=== PATIENT | female | born 1945 | race Caucasian/White ===

== ENCOUNTER 2024-12-25 22:12 | Emergency (ER) | payer MEDICARE, SELFPAY ==
[2024-12-25 22:16] VITALS: BP 162/72
[2024-12-25 22:22] VITALS: BMI 19.1
--- NOTE | 2024-12-25 22:38 | ED.GENMED ---
History of Present Illness
General
Chief Complaint: Fall
Source: patient, records and ambulance crew
Exam Limitations: dementia
Time Seen by Provider: 12/25/24 22:23
Nursing documentation reviewed up to this point in time: agreed with
History of Present Illness
History of Present Illness:
79-year-old female presents emergency room complaining of a fall. She denies any pain. She has expressive aphasia and has difficulty giving history of what happened. She is able to answer some questions.
Past History
Past History
ED Past Medical History: Cancer (Skin CA), GERD and Other (UTI, Expressive Aphasia)
ED Past Surgical History: , Gynecological (Right Oophorectomy) and Orthopedic (Right foot surgery)
Social History
Tobacco: Non-smoker
Alcohol: None
Drug: None
Personal:
Living: alone
Review of Systems
Review of Systems
Allergies reviewed?: Yes
All Other Systems: Not applicable
Constitutional: Reports no symptoms
EENT: Reports no symptoms
Respiratory: Reports no symptoms
Cardiac: Reports no symptoms
ABD/GI: Reports no symptoms
: Reports no symptoms
Musculoskeletal: Reports no symptoms
Skin: Reports no symptoms
Neurological: Reports no symptoms
Endocrine: Reports no symptoms
Hematologic/Lymphatic: Reports no symptoms
Psychiatric: Reports no symptoms
Phy Exam
Physical Exam
Physical Exam:
Physical Exam
General: no apparent distress, not acutely ill
Neck: supple. no meningeal signs. normal posterior pharynx, wearing c-collar
Heart: s1/s2 regular rate and rhythm, no murmur. equal radial
pulses.
HEENT: Pupils equal round reactive to light, EOMI
Lungs: no acute respiratory distress. clear bilaterally
Abdomen: normal bowel sounds. not tender. no CVAT
Neuro: alert and oriented to person. no focal neurological deficits cranial nerves II through XII intact
Skin: no rash
Psychiatric: well kept. interactive and cooperative
Extremities: no edema. no calf tenderness. negative homans. good distal pulses
Course
Orders/Labs/Results
Orders:
Orders
12/25/24 22:38
CT Cervical Spine W/o Iv Contr Urgent
Comment:
Reason For Exam: fall
CT Head W/o Iv Contrast Urgent
Comment:
Reason For Exam: fall
0.9% Sodium Chloride 500 ml [Nss] 500 ml IV BOLUS
12/25/24 22:47
CMP [Comprehensive Metabolic Panel] Urgent
Complete Blood Count/With Diff Urgent
Abnormal Lab Results
12/25/24
22:47
RBC 3.98 L 10^6/uL
(4.20-5.40)
Hgb 11.9 L g/dL
(12.0-16.0)
Hct 36.6 L %
(37.0-47.0)
MCHC 32.5 L g/dL
(33.0-37.0)
Abs Immat Gran (auto) 0.1 H 10^3/uL
(0-0.05)
Absolute Lymphs (auto) 0.7 L 10^3/uL
(1.2-3.4)
Absolute Monos (auto) 0.7 H 10^3/uL
(0.1-0.6)
Immature Gran % 0.9 H %
(0-0.5)
Lymphocytes % 13.9 L %
(20.5-51.1)
Monocytes % 13.9 H %
(1.7-9.3)
Potassium 3.4 L mmol/L
(3.5-5.1)
Carbon Dioxide 33 H mmol/L
(22-30)
Creatinine 0.5 L mg/dL
(0.6-1.0)
12/25/24 22:47
12/25/24 22:47
Vital Signs
Initial and Last Documented VS:
Initial Vital Signs
Temp Pulse Resp BP Pulse Ox
98.4 F 67 18 162/72 94
12/25/24 22:16 12/25/24 22:16 12/25/24 22:16 12/25/24 22:16 12/25/24 22:16
Last Documented Vital Signs
Temp Pulse Resp BP Pulse Ox
98.4 F 57 18 129/65 95
12/25/24 22:16 12/26/24 01:15 12/25/24 23:43 12/26/24 01:00 12/26/24 01:15
MDM/Problems Addressed
Differential Diagnosis Includes:
Intracranial hemorrhage, cervical spine fracture
MDM/Problems Addressed:
79-year-old female with fall, no signs of trauma on exam and CT scans. CT head and cervical spine no fracture or intracranial hemorrhage. Stable for discharge. No respiratory distress, lungs clear.
Chronic conditions affecting care: Other (Dementia)
*Radiology
Radiology exam reviewed: radiology read reviewed (CT head and cervical spine no acute finding)
*Pulse Oximetry
SaO2: 94
Oxygen Mode of Delivery: Room air
Patient hypoxic: no
*Critical Care Note
Total Time (30-74mins, 75-104mins- exclusive of procedures): Not Applicable
Patient Management
Social determinants of health affecting care: Living situation and Strong social support
Escalation/DeEscalation of care consider admission/obs:
Admit not indicated
ED Attending Note
-
Portions of this chart may have been created with voice recognition software.� Occasional wrong word or��sound alike� substitutions may have occurred due to the inherent limitations of voice recognition software.
Discharge Plan
Departure
Patient Disposition: Correction/SNF
Date of Disposition: 12/26/24
Time of Disposition: 01:33
Patient with high blood pressure during this ER visit?: Yes
Condition: Good
Discharge Problem:
Fall
Instructions: Preventing falls in adults, BLOOD PRESSURE
Prescriptions:
No Action
cyanocobalamin (vitamin B-12) [Vitamin B-12] 1,000 mcg Tablet
1,000 mcg PO DAILY
aspirin 81 MG tablet,chewable
81 mg PO DAILY
cholecalciferol (vitamin D3) [Vitamin D3] 25 mcg (1,000 unit) Tablet
25 mcg PO DAILY
calcium citrate-vitamin D3 [Citracal + D Maximum] 315 mg-6.25 mcg (250 unit) Tablet
1 tab PO BID
Prolia 60 mg/mL Syringe
60 mg SC [id number]
multivitamin Tablet
1 tab PO DAILY
acetaminophen 325 mg Tablet
325 - 650 mg PO Q6H PRN (Reason: mild pain)
ascorbic acid (vitamin C) [Vitamin C] 500 mg Tablet
500 mg PO DAILY
ibuprofen [Advil] 200 mg Tablet
200 mg PO Q6H PRN (Reason: mild pain)
Hair,Skin and Nails Tablet
1 tab PO DAILY
omeprazole 20 mg Tablet,Delayed Release (Dr/Ec)
20 mg PO .[id number]
omega-3 fatty acids-fish oil 684-1,200 mg Capsule,Delayed Release(Dr/Ec)
1 cap PO DAILY
donepezil 5 mg Tablet
5 mg PO .[id number]
sertraline 50 mg Tablet
50 mg PO DAILY
magnesium oxide 400 mg magnesium Tablet
400 mg PO DAILY
Referrals:
Richard Nj MD [Family Provider] - Call in 1-3 days for appt
Interventions
Interventions:
*Risk Screen - Suicide Last Done: 12/25/24 22:24
*General Assessment Last Done: 12/25/24 22:24
*Neglect/Abuse Screening Last Done: 12/25/24 22:24
*ED- Fall Risk Assessment Last Done: 12/25/24 22:24
*ED COVID-19 Vaccine History Last Done: 12/25/24 22:24
ED-Musculoskeletal Assessment Last Done: 12/25/24 22:30
ED- Neurological Assessment Last Done: 12/25/24 22:30
ED-Skin Assessment Last Done: 12/25/24 22:30
Discharge Date and Time
Print Language: VENEZUELAN
[2024-12-25] MEDS: NSS 500 IV (22:50)
[2024-12-25 22:54] LABS: Hematocrit 36.6 % (37.0-47.0); Hemoglobin 11.9 g/dL (12.0-16.0); Mean Corp Hgb Conc. 32.5 g/dL (33.0-37.0); Mean Corpuscular Volume 92.0 fL (81.0-99.0); Nucleated Red Blood Cells % 0 %; Platelet Count 241 10^3/uL (130-400); Red Cell Dist. Width 13.2 % (11.5-14.5)
[2024-12-25 23:00] VITALS: BP 144/81
[2024-12-25 23:11] LABS: ALT (SGPT) 16 U/L (0-35); AST (SGOT) 33 U/L (14-36); Albumin 3.9 g/dl (3.5-5.0); Alkaline Phosphatase 59 U/L (38-126); Blood Urea Nitrogen 14 mg/dl (7-17); Calcium 9.1 mg/dl (8.4-10.2); Carbon Dioxide 33 mmol/L (22-30); Chloride 102 mmol/L (98-107); Estimated Creatinine Clearance 62 ml/min; Glucose 98 mg/dl (70-99); Potassium 3.4 mmol/L (3.5-5.1); Sodium 137 mmol/L (135-145); Total Protein 7.7 g/dl (6.3-8.2); eGFR > 60.00
[2024-12-25 23:43] VITALS: BP 167/76
[2024-12-26] VITALS: BP 152/68
[2024-12-26 01:00] VITALS: BP 129/65
[2024-12-26 02:00] VITALS: BP 113/64
[2024-12-26 03:51] VITALS: BP 117/62
[2024-12-26 04:46] VITALS: BP 136/72
== END 2024-12-26 04:56 ==
LOC: EMR 22:12
PROVIDERS: EMERGENCY PHYSICIAN Emergency Medicine; FAMILY PHYSICIAN Internal Medicine
DX: Z04.89 Encounter for examination and observation for other specified reasons (principal); W19.XXXA Unspecified fall, initial encounter; K21.9 Gastro-esophageal reflux disease without esophagitis; F03.90 Unspecified dementia, unspecified severity, without behavioral disturbance, psychotic disturbance, mood disturbance, and anxiety; Z85.828 Personal history of other malignant neoplasm of skin; Z87.440 Personal history of urinary (tract) infections; Z90.721 Acquired absence of ovaries, unilateral
CPT/HCPCS: 99284; 96360; 70450; 72125; 80053; 85025

== ENCOUNTER 2025-01-23 04:02 | Emergency (ER) | payer MEDICARE, SELFPAY ==
[2025-01-23 04:06] VITALS: BP 135/60
--- NOTE | 2025-01-23 04:20 | EDRN ---
Paperwork from [facility] list pt's allergies as None however there are allergies in pt's ED record.
--- NOTE | 2025-01-23 05:29 | ED.GENMED ---
History of Present Illness
General
Chief Complaint: Fall
Time Seen by Provider: 01/23/25 04:32
History of Present Illness
History of Present Illness:
79-year-old female with history of dementia presenting from nursing facility for reported fall. Patient allegedly slid out of her bed onto the ground and facility is reporting that patient was having left hip pain. No report of any head injury.
Patient is not on any blood thinners. Patient is very limited historian given her profound dementia. No additional symptoms reported at this time
Past History
Past History
ED Past Medical History: Cancer (Skin CA), GERD and Other (UTI, Expressive Aphasia)
ED Past Surgical History: , Gynecological (Right Oophorectomy) and Orthopedic (Right foot surgery)
Social History
Tobacco: Non-smoker
Alcohol: None
Drug: None
Personal:
Living: alone
Phy Exam
Physical Exam
Physical Exam:
General: Well-appearing, no clinical signs of dehydration, nontoxic and in no acute distress
HEENT: protecting airway
Neck: appears supple
CV: Normal heart rate, regular rhythm
Resp: No accessory muscle use, no increased work of breathing, lungs clear to auscultation bilaterally
Abd: Soft and non-distended, no tenderness to palpation
Extremities: No deformities, no swelling. Range of motion to lower extremities intact. No tenderness to the hips or pelvis
Neuro: alert, disoriented
: deferred
Rectal: deferred
Psych: Normal affect
Skin: Intact
Course
Orders/Labs/Results
Orders:
Orders
01/23/25 04:46
Hip, Left 2-3 Views [CR Hip - LT w/wo Pel 2-3 Vw*] Urgent
Comment:
Reason For Exam: pain after fall
Include a pelvis x-ray?: Yes
Vital Signs
Initial and Last Documented VS:
Initial Vital Signs
Temp
97.6 F
01/23/25 04:03
Last Documented Vital Signs
Temp Pulse Resp BP
97.6 F 62 14 135/60
01/23/25 04:03 01/23/25 04:05 01/23/25 04:05 01/23/25 04:06
MDM/Problems Addressed
MDM/Problems Addressed:
79-year-old female with history of dementia presenting from nursing facility after fall from sitting position. Vital signs are normal.
On exam patient resting comfortably, no acute distress. Patient without any physical signs of trauma. Severely limited historian. Per nursing facility, no report of head injury, patient is not on any blood thinners. Again no signs of any head
trauma. Without indication for advanced head imaging. Per nursing facility, patient was reporting left hip pain. No signs of deformity on examination, no neurovascular compromise. Patient with normal range of motion. Low suspicion fracture.
Will screen with x-ray. Otherwise unremarkable examination.
05:30 - X-ray without fracture or dislocation. Feel stable for discharge back to nursing facility with outpatient follow-up. Return precautions discussed
*Pulse Oximetry
Patient hypoxic: no
*Critical Care Note
Total Time (30-74mins, 75-104mins- exclusive of procedures): Not Applicable
ED Attending Note
-
Portions of this chart may have been created with voice recognition software.� Occasional wrong word or��sound alike� substitutions may have occurred due to the inherent limitations of voice recognition software.
Discharge Plan
Departure
Patient Disposition: Home (Routine Discharge)
Date of Disposition: 01/23/25
Time of Disposition: 05:28
Patient with high blood pressure during this ER visit?: No
Condition: Good
Discharge Problem:
Fall, Hip pain
Instructions: Preventing falls in adults
Prescriptions:
No Action
acetaminophen 325 mg Tablet
650 mg PO Q6H PRN (Reason: pain/fever)
omeprazole 20 mg Tablet,Delayed Release (Dr/Ec)
20 mg PO BID
donepezil 5 mg Tablet
5 mg PO HS
sertraline 50 mg Tablet
100 mg PO DAILY
magnesium oxide 400 mg magnesium Tablet
400 mg PO DAILY
lorazepam 0.5 mg Tablet
0.5 mg PO Q6HPRN PRN (Reason: anxiety)
Referrals:
UNKNOWN - PT DOES,NOT KNOW [Family Provider]
Activity Restrictions/Additional Instructions:
You were seen in the emergency department for a fall
You were found to have reassuring vital signs and x-ray of your hip and pelvis.
Please follow-up closely with your primary care physician.
Return to the emergency department for any worsening of your symptoms, or any development of chest pain, difficulty breathing, abdominal pain with persistent vomiting and inability to tolerate food or liquid by mouth (concern for dehydration),
weakness, headache or confusion, fever greater than 100.4, or any additional symptoms that are concerning to you.
Thank you for choosing [facility].
Interventions
Interventions:
*Risk Screen - Suicide Last Done: 01/23/25 04:03
*General Assessment Last Done: 01/23/25 04:03
*Neglect/Abuse Screening Last Done: 01/23/25 04:03
*ED- Fall Risk Assessment Last Done: 01/23/25 04:07
ED-Musculoskeletal Assessment Last Done: 01/23/25 04:09
ED- Neurological Assessment Last Done: 01/23/25 04:09
ED-Skin Assessment Last Done: 01/23/25 04:09
Discharge Date and Time
Print Language: GAMBIAN
[2025-01-23 05:30] VITALS: BP 128/70
--- NOTE | 2025-01-23 05:30 | EDRN ---
Pt attempts to get out of the stretcher via the bottom of it. Knee gatch raised and stretcher tipped backwards slightly. Pt informed of plan of care, pt wants to go home. Pt's personal pillow placed with her, music playing on TV and lights
dimmed. This RN explained to pt that she is discharged and transport will be picking her up around 0600 to go home. Pt pointed at this RN and repeated 'liar liar liar.'
--- NOTE | 2025-01-23 05:38 | EDRN ---
Pt continues trying to get out the bottom of the stretcher. EDT 1:1 with pt for safety, assisting pt with putting on her clothes.
--- NOTE | 2025-01-23 05:56 | EDRN ---
[facility] (staff said this was a RN). Informed pt's paperwork from [facility] lists no allergies however she has allergies listed in ED chart. Suggested allergy status be confirmed when possible and he asked that allergies
listed be written down. Allergies in ED chart listed on pt's discharge paperwork.
== END 2025-01-23 06:25 | disposition home or self-care (01) ==
LOC: EMR 04:02
PROVIDERS: EMERGENCY PHYSICIAN Student in an Organized Health Care Education/Training Program
DX: M25.552 Pain in left hip (principal); W19.XXXA Unspecified fall, initial encounter; F03.90 Unspecified dementia, unspecified severity, without behavioral disturbance, psychotic disturbance, mood disturbance, and anxiety; Z85.828 Personal history of other malignant neoplasm of skin; Z87.440 Personal history of urinary (tract) infections; Z90.721 Acquired absence of ovaries, unilateral; K21.9 Gastro-esophageal reflux disease without esophagitis
CPT/HCPCS: 99283; 73502

== ENCOUNTER 2025-02-02 04:11 | Emergency (ER) | payer MEDICARE, SELFPAY ==
[2025-02-02] VITALS (12 sets, daily range): BP systolic 98–145; BP diastolic 52–99
[2025-02-02 05:03] LABS: Hematocrit 32.6 % (37.0-47.0); Hemoglobin 10.4 g/dL (12.0-16.0); Mean Corp Hgb Conc. 31.9 g/dL (33.0-37.0); Mean Corpuscular Volume 89.6 fL (81.0-99.0); Nucleated Red Blood Cells % 0 %; Platelet Count 243 10^3/uL (130-400); Red Cell Dist. Width 13.4 % (11.5-14.5)
[2025-02-02 05:38] LABS: Blood Urea Nitrogen 8 mg/dl (7-17); Calcium 8.7 mg/dl (8.4-10.2); Carbon Dioxide 32 mmol/L (22-30); Chloride 100 mmol/L (98-107); Glucose 114 mg/dl (70-99); Sodium 137 mmol/L (135-145); eGFR > 60.00
--- NOTE | 2025-02-02 06:34 | ED.GENMED ---
History of Present Illness
<Liberty Kwon DO, Resident - Last Filed: 02/02/25 12:35>
General
Chief Complaint: Musculo-Skeletal Complaint
Time Seen by Provider: 02/02/25 06:10
History of Present Illness
History of Present Illness:
Patient is a 79-year-old female with past medical history of Alzheimer's coming from [facility] dementia. Hip pain. Unwitnessed fall. Patient is unable to bear weight on the left hip. Patient also has new abrasion and bruising on
the right side of her chin and her posterior right shoulder. Patient unable to provide additional details due to profound dementia. Of note patient had a recent ED visit. Of note patient had a recent ED visit on 01/23/2025 for left hip pain after a
fall.
Past History
<Liberty Kwon DO, Resident - Last Filed: 02/02/25 12:35>
Past History
ED Past Medical History: Cancer (Skin CA), GERD and Other (UTI, Expressive Aphasia)
ED Past Surgical History: , Gynecological (Right Oophorectomy) and Orthopedic (Right foot surgery)
Social History
Tobacco: Non-smoker
Alcohol: None
Drug: None
Personal:
Living: alone
Review of Systems
<Liberty Kwon DO, Resident - Last Filed: 02/02/25 12:35>
Review of Systems
Allergies reviewed?: Yes
Unable to obtain full review of systems at this time due to: dementia
Phy Exam
<Liberty Kwon DO, Resident - Last Filed: 02/02/25 12:35>
General Physical Exam
General Presentation: well appearing and no apparent distress
General age: appears stated age
ENT Exam
Additional ENT: Protecting airway
Cardiovascular Exam
Cardiovascular Exam: regular rate/rhythm
Heart Sounds: normal
Pulmonary Exam
Pulmonary Exam: lungs clear and no respiratory distress
Gastrointestinal Exam
Gastrointestinal Exam: normal bowel sounds, non tender and soft
Neurological Exam
Neurological Exam: other (Disoriented, difficult to arouse)
Musculoskeletal Exam
Musculoskeletal Exam: other (Left hip pain swelling, older yellowing bruise on left hip buttocks. )
Skin Exam
Skin Exam: other ( New abrasions on right chin, left cheek and right posterior shoulder.)
Course
<Liberty Kwon DO, Resident - Last Filed: 02/02/25 12:35>
Orders/Labs/Results
Orders:
Orders
02/02/25 04:42
CR Femur - Left Min 2 Vw Urgent
Comment:
Reason For Exam: pain, bruising, and swelling after fall
CR Hip - LT w/wo Pel 2-3 Vw* Urgent
Comment:
Reason For Exam: pain/ bruising after fall
Include a pelvis x-ray?: Yes
02/02/25 04:44
Basic Metabolic Panel Urgent
Comment: NO K
Complete Blood Count/With Diff Urgent
02/02/25 06:30
CT Cervical Spine W/o Iv Contr Urgent
Comment:
Reason For Exam: fall
CT Head W/o Iv Contrast Urgent
Comment:
Reason For Exam: Fall
02/02/25 06:47
CT Pelvis W/o Iv Contrast Urgent
Comment:
Reason For Exam: L-hip pain
02/02/25 09:36
Urinalysis Reflex To Culture Urgent
Date Specimen was Collected: 02/02/25
Time Specimen was Collected: 09:15
Urine Microscopic Reflex Cult Urgent
02/02/25 09:37
Ketorolac [Toradol] 15 mg IV NOW STA
02/02/25 09:59
CR Chest - 2 Views Urgent
Comment:
Reason For Exam: fever
Abnormal Lab Results
02/02/25 02/02/25
04:44 09:36
RBC 3.64 L 10^6/uL
(4.20-5.40)
Hgb 10.4 L g/dL
(12.0-16.0)
Hct 32.6 L %
(37.0-47.0)
MCHC 31.9 L g/dL
(33.0-37.0)
Abs Immat Gran (auto) 0.1 H 10^3/uL
(0-0.05)
Absolute Neuts (auto) 7.4 H 10^3/uL
(1.4-6.5)
Absolute Lymphs (auto) 0.6 L 10^3/uL
(1.2-3.4)
Absolute Monos (auto) 1.1 H 10^3/uL
(0.1-0.6)
Neutrophils % 81.2 H %
(42.2-75.2)
Lymphocytes % 6.1 L %
(20.5-51.1)
Monocytes % 12.0 H %
(1.7-9.3)
Carbon Dioxide 32 H mmol/L
(22-30)
Creatinine 0.4 L mg/dL
(0.6-1.0)
Glucose 114 H mg/dl
(70-99)
Urine Bacteria (Reflex) Few A
(Negative)
Urine Albumin (Reflex) 1+ A
(Neg - Trace)
02/02/25 04:44
02/02/25 04:44
Vital Signs
Initial and Last Documented VS:
Initial Vital Signs
Temp Pulse Resp BP Pulse Ox
100.4 F H 78 18 145/67 97
02/02/25 04:15 02/02/25 04:15 02/02/25 04:15 02/02/25 04:15 02/02/25 04:15
Last Documented Vital Signs
Temp Pulse Resp BP Pulse Ox
100.4 F H 63 21 117/59 95
02/02/25 09:00 02/02/25 10:45 02/02/25 10:09 02/02/25 10:43 02/02/25 10:45
<Cassidy Dawson, DO - Last Filed: 02/02/25 10:42>
Orders/Labs/Results
Orders:
Orders
02/02/25 04:42
CR Femur - Left Min 2 Vw Urgent
Comment:
Reason For Exam: pain, bruising, and swelling after fall
CR Hip - LT w/wo Pel 2-3 Vw* Urgent
Comment:
Reason For Exam: pain/ bruising after fall
Include a pelvis x-ray?: Yes
02/02/25 04:44
Basic Metabolic Panel Urgent
Comment: NO K
Complete Blood Count/With Diff Urgent
02/02/25 06:30
CT Cervical Spine W/o Iv Contr Urgent
Comment:
Reason For Exam: fall
CT Head W/o Iv Contrast Urgent
Comment:
Reason For Exam: Fall
02/02/25 06:47
CT Pelvis W/o Iv Contrast Urgent
Comment:
Reason For Exam: L-hip pain
02/02/25 09:36
Urinalysis Reflex To Culture Urgent
Date Specimen was Collected: 02/02/25
Time Specimen was Collected: 09:15
Urine Microscopic Reflex Cult Urgent
02/02/25 09:37
Ketorolac [Toradol] 15 mg IV NOW STA
02/02/25 09:59
CR Chest - 2 Views Urgent
Comment:
Reason For Exam: fever
Abnormal Lab Results
02/02/25 02/02/25
04:44 09:36
RBC 3.64 L 10^6/uL
(4.20-5.40)
Hgb 10.4 L g/dL
(12.0-16.0)
Hct 32.6 L %
(37.0-47.0)
MCHC 31.9 L g/dL
(33.0-37.0)
Abs Immat Gran (auto) 0.1 H 10^3/uL
(0-0.05)
Absolute Neuts (auto) 7.4 H 10^3/uL
(1.4-6.5)
Absolute Lymphs (auto) 0.6 L 10^3/uL
(1.2-3.4)
Absolute Monos (auto) 1.1 H 10^3/uL
(0.1-0.6)
Neutrophils % 81.2 H %
(42.2-75.2)
Lymphocytes % 6.1 L %
(20.5-51.1)
Monocytes % 12.0 H %
(1.7-9.3)
Carbon Dioxide 32 H mmol/L
(22-30)
Creatinine 0.4 L mg/dL
(0.6-1.0)
Glucose 114 H mg/dl
(70-99)
Urine Bacteria (Reflex) Few A
(Negative)
Urine Albumin (Reflex) 1+ A
(Neg - Trace)
02/02/25 04:44
02/02/25 04:44
Vital Signs
Initial and Last Documented VS:
Initial Vital Signs
Temp Pulse Resp BP Pulse Ox
100.4 F H 78 18 145/67 97
02/02/25 04:15 02/02/25 04:15 02/02/25 04:15 02/02/25 04:15 02/02/25 04:15
Last Documented Vital Signs
Temp Pulse Resp BP Pulse Ox
100.4 F H 63 21 117/59 95
02/02/25 09:00 02/02/25 10:45 02/02/25 10:09 02/02/25 10:43 02/02/25 10:45
<Liberty Kwon DO, Resident - Last Filed: 02/02/25 12:35>
MDM/Problems Addressed
MDM/Problems Addressed:
Due to the fall being unwitnessed and abrasions on her face, we will order CT head and a CT cervical spine. Ordering a urinalysis considering patient is slightly febrile at 100.4 �F.
CT Head: no acute intracranial abnormality noted. No acute intracranial hemorrhage or extra-axial collection. Mild right lateral scalp soft tissue swelling. No skull fracture.
CT Cervical Spine: Stable examination. C5-6 degenerative disc disease. No fracture. No traumatic malalignment.
CT Pelvis: Soft tissue hematoma within the subcutaneous fat lateral to the left greater trochanter. No left hip fracture or dislocation. Left obturator internus muscle and common hamstring tendon origin soft tissue injury/tear. Healing insufficiency
fractures involving the medial aspect of the right superior pubic ramus and sacrum, having developed since prior examination
9:25 AM rectal temp 100.4 F. Will get straight cath for urinalysis sample.
10:15 AM Urinalysis negative. Have tried to contact nursing facility numerous times and left voicemails for both the facility and the patient's son. chest x-ray ordered to rule out other sources of infection, negative.
Patient ready for discharge
<Liberty Kwon DO, Resident - Last Filed: 02/02/25 12:35>
*Radiology
Radiology exam reviewed: radiology read reviewed
*Pulse Oximetry
SaO2: 95
Oxygen Mode of Delivery: Room air
Patient hypoxic: no
*Critical Care Note
Total Time (30-74mins, 75-104mins- exclusive of procedures): Not Applicable
ED Attending Note
<Liberty Kwon DO, Resident - Last Filed: 02/02/25 12:35>
-
Portions of this chart may have been created with voice recognition software.� Occasional wrong word or��sound alike� substitutions may have occurred due to the inherent limitations of voice recognition software.
<Cassidy Dawson DO - Last Filed: 02/02/25 10:42>
ED Attending Note
Patient seen and examined by attending physician: Yes
I performed the substantive portion of visit, reviewed & personally made and approve the management plan that is documented in note by myself or SHAI.: Yes
I performed a history and physical exam of patient and discussed management with resident, I reviewed resident's note and agree with documented findings and plan of care.: Yes
ED Attending Note:
79-year-old female with history of profound dementia, presenting from nursing facility for unwitnessed fall. Patient presents from dementia care unit. Per medics, was unable to bear weight on her left leg. Patient was seen in the hospital on 01/23
for fall as well. Patient unable to comply with any additional questioning given her dementia. Vital signs are significant for low-grade temperature.
On exam patient is resting comfortably, no acute distress. She is disoriented, which is allegedly her baseline. Does arrive with some signs of trauma, abrasion to the chin and right side of the face. No tenderness elicited to the cervical spine.
Mild abrasion to the right shoulder, with no obvious deformity, range of motion intact and no tenderness on palpation. Tenderness to the left hip, externally rotated, not ranging. Distal sensation and pulses intact. No tenderness to the
chest/abdomen/pelvis. Plan for screening laboratory analysis, concern for hip fracture. Will also obtain CT head imaging. Regarding low-grade temperature, hemodynamically stable otherwise, no SIRS criteria or concern for sepsis. No coughing.
Will obtain urinalysis and screening laboratory analysis. Will obtain x-rays of hip.
06:40 - Hip x-ray without obvious fracture, difficult to interpret. Given that patient is not bearing weight, will obtain CT of the pelvis. Labs thus far unremarkable, no leukocytosis
09:20 -CT head and cervical spine are negative. CT of the pelvis without fracture to the left hip. There is mention of a soft tissue hematoma as well as muscular tear. Likely etiology of patient's pain. There are also healing fractures to the
right side. Unclear of patient's baseline ambulatory status. Will discuss with nursing facility and patient's family
10:40 -chest x-ray without any abnormality. Multiple times made to call nursing facility. Message also left with patient's son. At this time without concern for systemic infection, remains hemodynamically stable. Feel stable for discharge back
to nursing facility with PT for left sided muscular injury, and healing fractures to the right side.
Discharge Plan
Departure
Patient Disposition: Snf/SNF
Date of Disposition: 02/02/25
Time of Disposition: 10:39
Discharge Problem:
Fall
Instructions: Preventing falls - ED discharge instructions, BLOOD PRESSURE
Prescriptions:
No Action
acetaminophen 325 mg Tablet
650 mg PO Q6HPRN PRN (Reason: MILD pain/fever)
omeprazole 20 mg Tablet,Delayed Release (Dr/Ec)
20 mg PO BID
donepezil 5 mg Tablet
5 mg PO HS
sertraline 50 mg Tablet
100 mg PO DAILY
magnesium oxide 400 mg magnesium Tablet
400 mg PO DAILY
lorazepam 0.5 mg Tablet
0.5 mg PO Q6HPRN PRN (Reason: anxiety)
Referrals:
UNKNOWN - PT DOES,NOT KNOW [Family Provider]
Activity Restrictions/Additional Instructions:
You were seen in the emergency department for left hip pain
You were found to have a normal x-ray of your hip. We did a CT scan of your hip which showed a muscular tear, which is likely contributing to your pain. You also have healing old fractures to your right pelvis. Please follow-up with a physical
therapist. You were also noted to have a low-grade temperature of 100.4. However you had reassuring laboratory analysis and a urinalysis. Please continue to monitor your temperature and any developing infectious symptoms.
Please follow-up closely with your primary care physician.
Return to the emergency department for any worsening of your symptoms, or any development of chest pain, difficulty breathing, abdominal pain with persistent vomiting and inability to tolerate food or liquid by mouth (concern for dehydration),
weakness, headache or confusion, fever greater than 100.4, or any additional symptoms that are concerning to you.
Thank you for choosing [facility].
Interventions
Interventions:
*Risk Screen - Suicide Last Done: 02/02/25 04:15
*General Assessment Last Done: 02/02/25 04:15
*Neglect/Abuse Screening Last Done: 02/02/25 04:15
*ED- Fall Risk Assessment Last Done: 02/02/25 04:28
*ED COVID-19 Vaccine History Last Done: 02/02/25 04:28
ED-Musculoskeletal Assessment Last Done: 02/02/25 05:00
ED- Neurological Assessment Last Done: 02/02/25 05:00
ED-Skin Assessment Last Done: 02/02/25 05:00
Discharge Date and Time
Print Language: PERUVIAN
[2025-02-02 09:49] LABS: Urine Character Clear (Clear)
[2025-02-02 09:56] LABS: Urine Red Blood Cell 0-2 /HPF (0-2); Urine Squamous Cell 0-2 /LPF (Few); Urine White Cell 0-2 /HPF (0-5)
[2025-02-02] MEDS: TORADOL 15 MG IV (10:45)
== END 2025-02-02 12:27 ==
LOC: EMR 04:11
PROVIDERS: Emergency Medicine; EMERGENCY PHYSICIAN Student in an Organized Health Care Education/Training Program
DX: S00.83XA Contusion of other part of head, initial encounter (principal); S00.81XA Abrasion of other part of head, initial encounter; S40.211A Abrasion of right shoulder, initial encounter; M25.552 Pain in left hip; W19.XXXA Unspecified fall, initial encounter; G30.9 Alzheimer's disease, unspecified; F02.80 Dementia in other diseases classified elsewhere, unspecified severity, without behavioral disturbance, psychotic disturbance, mood disturbance, and anxiety
CPT/HCPCS: 96374; 99284; 70450; 71046; 72125; 72192; 73502; 73552; 80048; 81003; 81015; 85025

== ENCOUNTER 2025-02-23 17:55 | Emergency (ER) | payer MEDICARE, SELFPAY ==
[2025-02-23 18:00] VITALS: BP 164/78
[2025-02-23 19:25] VITALS: BP 161/79
[2025-02-23 19:29] VITALS: BMI 20.8
--- NOTE | 2025-02-23 19:44 | ED.GENMED ---
History of Present Illness
General
Chief Complaint: Fall
Source: patient and family
Exam Limitations: dementia
Time Seen by Provider: 02/23/25 19:39
History of Present Illness
History of Present Illness:
79-year-old female here from [facility] for unwitnessed fall.
Pt is demented, poor historian. No apparent distress.
Spoke with son and informed of no significant finding. Pt OOB and ambulating well independently with walker. Undressed, no indication of any injury. Full ROM of exremities.
Spoke with nurse Kellee at [facility], states she was in the room with another resident, the other resident came out and asked for help, staff found her lying on her left side on the floor, no LOC.
Past History
Past History
ED Past Medical History: Cancer (Skin CA), GERD and Other (UTI, Expressive Aphasia, Altzheimer's )
ED Past Surgical History: , Gynecological (Right Oophorectomy) and Orthopedic (Right foot surgery)
Social History
Tobacco: Non-smoker
Alcohol: None
Drug: None
Personal:
Living: alone
Review of Systems
Review of Systems
Allergies reviewed?: Yes
Unable to obtain full review of systems at this time due to: dementia
Other source history: family and long-term
All Other Systems: ROS reviewed and negative except as documented in HPI and ROS
Phy Exam
Physical Exam
Physical Exam:
GENERAL: No acute distress. Alert, aphasic
CONSTITUTIONAL: Afebrile.
EYES: clear, conjunctivae normal
ENMT: moist mucus membranes
RESPIRATORY: Regular respirations, nonlabored, lungs clear.
CARDIOVASCULAR: Regular rate and rhythm, no murmurs, no rubs.
GI: Soft, nontender, normal BS
MUSCULOSKELETAL: No indication of spinal bony tenderness or tenderness to any of her extremities, she moves all her extremities with full range of motion and no indication of discomfort. Moves with ease. Well perfused.
SKIN: Warm, dry, pink
PSYCH: Calm mood and affect. Well kept, follows commands.
NEUROLOGIC: Awake, alert No focal neurological deficits. OOB and ambulating well independently with her walker
Course
Orders/Labs/Results
Orders:
Orders
02/23/25 20:17
Urinalysis Reflex To Culture Urgent
Date Specimen was Collected: 02/23/25
Time Specimen was Collected: 20:15
Urine Microscopic Reflex Cult Urgent
Urine Culture Urgent
ROSEANNA Source: U
Specimen Description:
Date Specimen was Collected: 02/23/25
Time Specimen was Collected: 20:15
Abnormal Lab Results
02/23/25
20:17
Leukocyte Esterase Rfl 1+ A
(Negative)
Urine Bacteria (Reflex) Many A
(Negative)
Urine Albumin (Reflex) 1+ A
(Neg - Trace)
Vital Signs
Initial and Last Documented VS:
Initial Vital Signs
Temp Pulse Resp BP Pulse Ox
98.0 F 104 16 164/78 98
02/23/25 18:00 02/23/25 18:00 02/23/25 18:00 02/23/25 18:00 02/23/25 18:00
Last Documented Vital Signs
Temp Pulse Resp BP Pulse Ox
98.0 F 104 16 161/79 99
02/23/25 18:00 02/23/25 18:00 02/23/25 18:00 02/23/25 19:25 02/23/25 22:04
MDM/Problems Addressed
MDM/Problems Addressed:
79-year-old female here from [facility] for unwitnessed fall.
Pt is demented, poor historian. No apparent distress.
Spoke with son and informed of no significant finding. Pt OOB and ambulating well independently with walker. Undressed, no indication of any injury. Full ROM of exremities.
Spoke with nurse Goodson at [facility], states she was in the room with another resident, the other resident came out and asked for help, staff found her lying on her left side on the floor, no LOC.
Plan: Check UA, no musculoskeletal symptoms, no indication for imaging
I spoke with son and updated him on her condition and the plan to check her UA and send her back, he was very appreciative of the call
8:45 PM:
UA with few WBCs, otherwise negative, culture pending, hold off on treating pending culture results
Patient is stable for discharge back to long-term
*Pulse Oximetry
SaO2: 99
Oxygen Mode of Delivery: Room air
Patient hypoxic: no
*Critical Care Note
Total Time (30-74mins, 75-104mins- exclusive of procedures): Not Applicable
ED Attending Note
-
Portions of this chart may have been created with voice recognition software.� Occasional wrong word or��sound alike� substitutions may have occurred due to the inherent limitations of voice recognition software.
Discharge Plan
Departure
Patient Disposition: Intermediate/SNF
Date of Disposition: 02/23/25
Time of Disposition: 20:45
Condition: Good
Discharge Problem:
Fall
Instructions: Preventing falls in adults
Prescriptions:
No Action
acetaminophen 325 mg Tablet
650 mg PO Q6HPRN PRN (Reason: MILD pain/fever)
omeprazole 20 mg Tablet,Delayed Release (Dr/Ec)
20 mg PO BID
donepezil 5 mg Tablet
5 mg PO HS
sertraline 50 mg Tablet
100 mg PO DAILY
magnesium oxide 400 mg magnesium Tablet
400 mg PO DAILY
lorazepam 0.5 mg Tablet
0.5 mg PO Q6HPRN PRN (Reason: anxiety)
Activity Restrictions/Additional Instructions:
As I discussed with Kellee, no apparent injury from fall.
Urine with few WBC's nothing needing treatment, urine culture pending.
Son updated
Interventions
Interventions:
*Risk Screen - Suicide Last Done: 02/23/25 18:00
*General Assessment Last Done: 02/23/25 19:29
*Neglect/Abuse Screening Last Done: 02/23/25 18:00
*ED- Fall Risk Assessment Last Done: 02/23/25 19:29
*ED COVID-19 Vaccine History Last Done: 02/23/25 19:29
*Nursing Disposition Last Done: 02/23/25 22:04
ED-Musculoskeletal Assessment Last Done: 02/23/25 19:29
ED- Neurological Assessment Last Done: 02/23/25 19:29
ED-Skin Assessment Last Done: 02/23/25 19:29
Discharge Date and Time
Discharge Date/Time: 02/23/25 22:06
Print Language: CHINESE
[2025-02-23 20:27] LABS: Urine Character Clear (Clear)
[2025-02-23 20:34] LABS: Urine Red Blood Cell 0-2 /HPF (0-2)
== END 2025-02-23 22:06 ==
LOC: EMR 17:55
PROVIDERS: Registered Nurse; EMERGENCY PHYSICIAN Emergency Medicine
DX: Z04.3 Encounter for examination and observation following other accident (principal); W19.XXXA Unspecified fall, initial encounter; R47.01 Aphasia; G30.9 Alzheimer's disease, unspecified; F02.80 Dementia in other diseases classified elsewhere, unspecified severity, without behavioral disturbance, psychotic disturbance, mood disturbance, and anxiety
CPT/HCPCS: 99283; 81003; 81015; 87086

== ENCOUNTER 2025-03-17 23:22 | Inpatient (IN) | payer MEDICARE, SELFPAY ==
[2025-03-17 20:50] VITALS: BP 178/77
[2025-03-17 21:00] VITALS: BP 149/74
[2025-03-17 21:02] LABS: Hematocrit 32.6 % (37.0-47.0); Hemoglobin 10.0 g/dL (12.0-16.0); Mean Corp Hgb Conc. 30.7 g/dL (33.0-37.0); Mean Corpuscular Volume 90.8 fL (81.0-99.0); Nucleated Red Blood Cells % 0 %; Platelet Count 245 10^3/uL (130-400); Red Cell Dist. Width 14.8 % (11.5-14.5)
--- NOTE | 2025-03-17 21:15 | ED.MUSCINJ ---
HPI-Injury
<Kimberly Miranda WIRELESS CONSULTANT - Last Filed: 03/18/25 00:16>
General
Chief Complaint: Fall
Source: ambulance crew and long-term
Exam Limitations: none
Time Seen by Provider: 03/17/25 20:46
Nursing documentation reviewed up to this point in time: agreed with
History of Present Illness-Injury
Is this injury a work related problem?: No
Is pt an associate of [facility]?: No
Initial Injury comments:
[place] to ED from [place] after unwitnessed fall. History of dementia, aphasia. RLE shortened and rotated, complains of pain when hip is touched. Brought to ED via EMs. Incident occurred jsut [employer]. Recent UTI 03/12, treated with bactrim DS x 5 days.
Past History
<Kimberly Miranda WIRELESS CONSULTANT - Last Filed: 03/18/25 00:16>
Past History
ED Past Medical History: Cancer (Skin CA), GERD and Other (UTI, Expressive Aphasia, Altzheimer's )
ED Past Surgical History: , Gynecological (Right Oophorectomy) and Orthopedic (Right foot surgery)
Social History
Tobacco: Non-smoker
Alcohol: None
Drug: None
Personal:
Living: alone
Review of Systems
<Kimberly Miranda WIRELESS CONSULTANT - Last Filed: 03/18/25 00:16>
Review of Systems
Allergies reviewed?: Yes
All Other Systems: ROS reviewed and negative except as documented in HPI and ROS
Constitutional: Reports no symptoms
EENT: Reports no symptoms
Respiratory: Reports no symptoms
Cardiac: Reports no symptoms
ABD/GI: Reports no symptoms
: Reports no symptoms
Musculoskeletal: Reports joint pain (pain to right hip)
Skin: Reports no symptoms
Neurological: Reports no symptoms
Psychiatric: Reports no symptoms
Musculoskeletal Injury Exam
<Kimberly Miranda WIRELESS CONSULTANT - Last Filed: 03/18/25 00:16>
Musculoskeletal Injury Exam
Right Hip:
Pain with Movement?: Moderate
Tender to palpation?: Moderate
Soft tissue swelling?: None
External deformity and angulation?: None
Joint effusion?: None
Contusion?: Moderate
Hematoma-local bleeding into tissue?: None
Strain- Sprain- Tear (Connective tissue injury)?: Moderate
Crepitus with movement?: No
Joint instability?: No
Malalignment/deformity?: No
Range of motion: Limited
Distal skin color and temperature: normal-warm & good color
Capillary Refill: normal
Normal distal neurovascular exam?: Yes
Peripheral Pulses: posterior tibial (right): 3+ and dorsalis pedis (right): 3+
Phy Exam
<Kimberly Miranda WIRELESS CONSULTANT - Last Filed: 03/18/25 00:16>
General Physical Exam
General Presentation: moderate distress
General age: appears stated age
General Skin: warm and dry
General Habitus: elderly
General Mental: confused (baseline)
Pulmonary Exam
Pulmonary Exam: no respiratory distress and chest non tender
Gastrointestinal Exam
Gastrointestinal Exam: non tender and soft
Musculoskeletal Exam
Musculoskeletal Exam: neuro vasc intact
Skin Exam
Skin Exam: normal color, warm/dry and no rash
Psychiatric Exam
Psychiatric Exam: normal mood/affect
Injury Course
<Kimberly Miranda WIRELESS CONSULTANT - Last Filed: 03/18/25 00:16>
Orders/Labs/Results
Orders:
Orders
03/17/25 20:55
Type+Screen Urgent
Basic Metabolic Panel Urgent
Complete Blood Count/With Diff Urgent
03/17/25 21:12
Hip, Right 2-3 Views [CR Hip - RT w/wo Pel 2-3 Vw*] Urgent
Comment:
Reason For Exam: fall
Include a pelvis x-ray?: Yes
03/17/25 21:13
CT Head W/o Iv Contrast Urgent
Comment:
Reason For Exam: fall
03/17/25 21:59
HYDROmorphone [Dilaudid] 0.5 mg IV NOW STA
03/17/25 22:54
CMP [Comprehensive Metabolic Panel] Stat
03/17/25 23:03
Admit/Transfer Patient As Directed
Co-Sign Provider:
Level of Care: Inpatient admission
Assign to:: Medical/Surgical
Physician / Group: Emmy Jorge
Diagnosis: right hip fracture, mechanical fall
Reason for Hospitalization: right hip fracture, mechanical fall
Expected length of stay greater than two midnights?: Yes
ELOS- Estimated Length of Stay in days: 3
I certify the patient meets the requirements for IP care: Yes
03/17/25 23:04
PRN Pain Medication Management As Directed
May give lesser potent ordered pain med per pt: Yes
preference::
Protocol:: Medication orders for pain may be administered in a
manner that supports deferring to patient preference
when the pt is:
- Requesting an ordered lesser potent pain medication.
Least to most potent pain medications are defined
as: acetaminophen < NSAID < tramadol < opioids
(morphine, oxycodone, hydromorphone).
- Requesting a lesser dose of the same medication IF
ORDERED.
- Requesting a less intrusive route of administration
if both routes are prescribed by the provider (PO <
IV).
03/17/25 23:05
Code Status As Directed
Resuscitation Status: Full Code
09/24/25 23:25
Acetaminophen [Tylenol] 650 mg PO Q4HPRN PRN MILD pain/fever
HYDROmorphone [Dilaudid] 0.5 mg IV Q4HPRN PRN
Lorazepam [Ativan] 0.5 mg PO Q6HPRN PRN anxiety
Oxycodone [Roxicodone] 5 mg PO Q4HPRN PRN
03/17/25 23:25
ORTHOPEDIC CONSULT Routine
Consulting Provider: Quinton Adorno
Was physician already notified: Yes
Activity As Directed
Activity Level: As Tolerated
Pneumatic Compression Sleeves As Directed
Type: Knee high
Vital Signs As Directed
Frequency: Per unit guidelines
Weight As Directed
Frequency: Once
Comment: on admission
Pt Eval And Treat Routine
Activity Level: As Tolerated
DX Deep Vein Thrombosis Video Routine
03/18/25 Breakfast
NPO
Allow oral meds: Yes
Allow clear liquids: No
03/18/25 08:00
Buspirone [Buspar] 7.5 mg PO BID
Magnesium Oxide 400 mg PO DAILY
Pantoprazole [Protonix] 40 mg PO BID
Sertraline HCl [Zoloft] 125 mg PO DAILY
Sulfamethoxazole/Trimethoprim [Bactrim 400 mg/80 mg] 1 tablet PO BID
03/18/25 22:00
Donepezil [Aricept] 5 mg PO HS
Abnormal Lab Results
03/17/25 03/17/25
20:55 22:54
RBC 3.59 L 10^6/uL
(4.20-5.40)
Hgb 10.0 L g/dL
(12.0-16.0)
Hct 32.6 L %
(37.0-47.0)
MCHC 30.7 L g/dL
(33.0-37.0)
RDW 14.8 H %
(11.5-14.5)
Abs Immat Gran (auto) 0.1 H 10^3/uL
(0-0.05)
Absolute Lymphs (auto) 0.7 L 10^3/uL
(1.2-3.4)
Absolute Monos (auto) 0.8 H 10^3/uL
(0.1-0.6)
Immature Gran % 0.7 H %
(0-0.5)
Neutrophils % 76.2 H %
(42.2-75.2)
Lymphocytes % 11.0 L %
(20.5-51.1)
Monocytes % 11.6 H %
(1.7-9.3)
Carbon Dioxide 32 H mmol/L
(22-30)
BUN 18 H mg/dl
(7-17)
Glucose 124 H mg/dl 123 H mg/dl
(70-99) (70-99)
03/17/25 20:55
03/17/25 22:54
<Lacho Leblanc MD - Last Filed: 03/17/25 23:29>
Orders/Labs/Results
Orders:
Orders
03/17/25 20:55
Type+Screen Urgent
Basic Metabolic Panel Urgent
Complete Blood Count/With Diff Urgent
03/17/25 21:12
Hip, Right 2-3 Views [CR Hip - RT w/wo Pel 2-3 Vw*] Urgent
Comment:
Reason For Exam: fall
Include a pelvis x-ray?: Yes
03/17/25 21:13
CT Head W/o Iv Contrast Urgent
Comment:
Reason For Exam: fall
03/17/25 21:59
HYDROmorphone [Dilaudid] 0.5 mg IV NOW STA
03/17/25 22:54
CMP [Comprehensive Metabolic Panel] Stat
03/17/25 23:03
Admit/Transfer Patient As Directed
Co-Sign Provider:
Level of Care: Inpatient admission
Assign to:: Medical/Surgical
Physician / Group: Emmy Jorge
Diagnosis: right hip fracture, mechanical fall
Reason for Hospitalization: right hip fracture, mechanical fall
Expected length of stay greater than two midnights?: Yes
ELOS- Estimated Length of Stay in days: 3
I certify the patient meets the requirements for IP care: Yes
03/17/25 23:04
PRN Pain Medication Management As Directed
May give lesser potent ordered pain med per pt: Yes
preference::
Protocol:: Medication orders for pain may be administered in a
manner that supports deferring to patient preference
when the pt is:
- Requesting an ordered lesser potent pain medication.
Least to most potent pain medications are defined
as: acetaminophen < NSAID < tramadol < opioids
(morphine, oxycodone, hydromorphone).
- Requesting a lesser dose of the same medication IF
ORDERED.
- Requesting a less intrusive route of administration
if both routes are prescribed by the provider (PO <
IV).
03/17/25 23:05
Code Status As Directed
Resuscitation Status: Full Code
03/17/25 23:25
Acetaminophen [Tylenol] 650 mg PO Q4HPRN PRN MILD pain/fever
HYDROmorphone [Dilaudid] 0.5 mg IV Q4HPRN PRN
Lorazepam [Ativan] 0.5 mg PO Q6HPRN PRN anxiety
Oxycodone [Roxicodone] 5 mg PO Q4HPRN PRN
03/17/25 23:25
ORTHOPEDIC CONSULT Routine
Consulting Provider: Quinton Adorno
Was physician already notified: Yes
Activity As Directed
Activity Level: As Tolerated
Pneumatic Compression Sleeves As Directed
Type: Knee high
Vital Signs As Directed
Frequency: Per unit guidelines
Weight As Directed
Frequency: Once
Comment: on admission
Pt Eval And Treat Routine
Activity Level: As Tolerated
DX Deep Vein Thrombosis Video Routine
03/18/25 Breakfast
NPO
Allow oral meds: Yes
Allow clear liquids: No
03/18/25 08:00
Buspirone [Buspar] 7.5 mg PO BID
Magnesium Oxide 400 mg PO DAILY
Pantoprazole [Protonix] 40 mg PO BID
Sertraline HCl [Zoloft] 125 mg PO DAILY
Sulfamethoxazole/Trimethoprim [Bactrim 400 mg/80 mg] 1 tablet PO BID
03/18/25 22:00
Donepezil [Aricept] 5 mg PO HS
Abnormal Lab Results
03/17/25 03/17/25
20:55 22:54
RBC 3.59 L 10^6/uL
(4.20-5.40)
Hgb 10.0 L g/dL
(12.0-16.0)
Hct 32.6 L %
(37.0-47.0)
MCHC 30.7 L g/dL
(33.0-37.0)
RDW 14.8 H %
(11.5-14.5)
Abs Immat Gran (auto) 0.1 H 10^3/uL
(0-0.05)
Absolute Lymphs (auto) 0.7 L 10^3/uL
(1.2-3.4)
Absolute Monos (auto) 0.8 H 10^3/uL
(0.1-0.6)
Immature Gran % 0.7 H %
(0-0.5)
Neutrophils % 76.2 H %
(42.2-75.2)
Lymphocytes % 11.0 L %
(20.5-51.1)
Monocytes % 11.6 H %
(1.7-9.3)
Carbon Dioxide 32 H mmol/L
(22-30)
BUN 18 H mg/dl
(7-17)
Glucose 124 H mg/dl 123 H mg/dl
(70-99) (70-99)
03/17/25 20:55
03/17/25 22:54
<Kimberly Miranda NP - Last Filed: 03/18/25 00:16>
*Radiology
Radiology exam reviewed: radiology read reviewed
*Pulse Oximetry
SaO2: 95
Nasal Cannula flow liters per minute: 2
Oxygen Mode of Delivery: Room air
Patient hypoxic: no
*Critical Care Note
Total Time (30-74mins, 75-104mins- exclusive of procedures): Not Applicable
<Kimberly Miranda NP - Last Filed: 03/18/25 00:16>
Update Note
Update Note:
Patient to ED from long-term after unwitnessed fall. RLE shortened and rotated. Xray confirms fracture. CT head without acute findings. Will admit to hospitalist. Dr. Adorno consulted via tiger text, waiting for response.
ED Attending Note
<Kimberly Miranda NP - Last Filed: 03/18/25 00:16>
-
Portions of this chart may have been created with voice recognition software.� Occasional wrong word or��sound alike� substitutions may have occurred due to the inherent limitations of voice recognition software.
<Lacho Leblanc MD - Last Filed: 03/17/25 23:29>
ED Attending Note
Patient seen and examined by attending physician: Yes
ED Attending Note:
Patient with history of dementia and aphasia, presents ED from long-term after unwitnessed fall. Patient presents with obvious deformity of the right leg. Patient does not offer any of additional information. Patient does not take any blood
thinning medications.
Physical Exam
General: mild painful distress, not acutely ill. afebrile
Head: nc/at. eomi
Neck: supple. normal range of motion.
Neuro: alert and awake. no focal neurological deficits
Skin: no rash
Extremities: RLE: shortened and externally rotated
History, exam, and x-ray consistent with right hip fracture. Patient will be admitted for further evaluation and treatment.
On-call orthopedic surgeon, Dr. Adorno, notified via [place] text.
Discharge Plan
Departure
Patient Disposition: Admit
Date of Disposition: 03/17/25
Time of Disposition: 22:12
Presentation/result/management discussed w/ accepting MD/DO: Hospitalist
Patient with high blood pressure during this ER visit?: No
Condition: Fair
Covid-19: Not Applicable
Discharge Problem:
Hip fracture
Interventions
Interventions:
*Risk Screen - Suicide Last Done: 03/17/25 20:57
*General Assessment Last Done: 03/17/25 20:57
*Neglect/Abuse Screening Last Done: 03/17/25 20:57
*ED- Fall Risk Assessment Last Done: 03/17/25 20:57
*ED COVID-19 Vaccine History Last Done: 03/17/25 20:57
ED-Musculoskeletal Assessment Last Done: 03/17/25 21:00
ED- Neurological Assessment Last Done: 03/17/25 21:00
ED-Skin Assessment Last Done: 03/17/25 21:00
[2025-03-17 21:29] LABS: Blood Urea Nitrogen 18 mg/dl (7-17); Calcium 9.1 mg/dl (8.4-10.2); Carbon Dioxide 30 mmol/L (22-30); Chloride 104 mmol/L (98-107); Glucose 124 mg/dl (70-99); Sodium 140 mmol/L (135-145); eGFR > 60.00
[2025-03-17 22:13] VITALS: BP 152/71
[2025-03-17] MEDS: DILAUDID 0.5 MG IV (22:14)
--- NOTE | 2025-03-17 22:19 | HPS.HSE ---
Addendum entered and electronically signed by Emmy Jorge MD 03/17/25 23:26:
This is an addendum to the H&P written by Ashley Lutz on 03/17/2025. �Patient seen and examined independently with TYPIST.
79-year-old female past medical history of GERD, skin cancer, Alzhemiers with paranoia and agitation, anxiety/depression, chronic anemia, presenting from retirement for unwitnessed fall. �Complains of pain when hip is such.
Recently had a urinary tract infection on 03/12 treated with 5 days of Bactrim.
Vital signs show blood pressure initially 178/77 did improved to 149/74. She received Fentanyl by EMS and on 2L oxygen after.
Labs show hemoglobin stable at 10.
Hip x-ray shows acute comminuted right hip fracture. �CT head shows no acute intracranial abnormality.
Patient with right hip fracture. �N.p.o. postmidnight. �Pain control tylenol. �Orthopedics consulted. Patient with low risk of cardiac complications and can proceed to surgery.
Original Note:
Family Physician
-
Family Physician: INTERVIEWE UNKNOWN - PT NOT
Chief Complaint
-
right hip pain
History of Present Illness
Patient is a 79-year-old female with past medical history of Alzheimer's disease and depression/anxiety who presented to [facility] ED for evaluation of right hip pain s/p unwitnessed fall. Patient resides in memory care unit and paid caregiver at bedside
reports she has had a significant decline with Alzheimer's in the last month to six weeks, has had 4 falls this month and 2 since this past Saturday. She was diagnosed with UTI at facility an started on Bactrim for UTI and has one day of medication
remaining. No reported fever, chills, cough, shortness of breath, nausea, vomiting, constipation or diarrhea.
Medical History
Past Medical History
Past Medical History: Reports Other
Additional Past Medical History:
Alzheimer's disease
depression/anxiety
osteoarthritis
Bal's esophagus
Past Surgical History: Reports Other
Additional Past Surgical History:
Right Oophorectomy
Right foot surgery
Social History
Tobacco: Non-smoker
Alcohol: None
Drug: None
Living: Assisted Living
Family History
Family History: Not pertinent
Allergies / Home Medications
Allergies reflects when Allergies were last updated in [facility].
Home Medications with original date entered in [facility]
Allergy/Medication List:
Allergies
Allergy/AdvReac Type Severity Reaction Status Date / Time
erythromycin base Allergy Rash Verified 03/17/25 20:50
levofloxacin (From Levaquin) Allergy Rash Verified 03/17/25 20:50
Penicillins Allergy Unknown Verified 03/17/25 20:50
Home Medications
acetaminophen 325 mg tablet 650 mg PO Q6HPRN PRN MILD pain/fever 05/03/22
omeprazole 20 mg tablet,delayed release 20 mg PO BID Gastrointestinal issue 05/03/22
donepezil 5 mg tablet 5 mg PO HS 12/25/24
magnesium oxide 400 mg PO DAILY 12/25/24
sertraline 50 mg tablet 125 mg PO DAILY 12/25/24
lorazepam 0.5 mg tablet 0.5 mg PO Q6HPRN PRN anxiety 01/23/25
buspirone 5 mg tablet 7.5 mg PO BID 03/17/25
sulfamethoxazole 400 mg-trimethoprim 80 mg tablet (Bactrim) 1 tab PO BID 03/17/25
Review of Systems
-
Unable to obtain full review of systems at this time due to: Dementia
History Source: Family and [facility]
Constitutional: Denies Fever or Chills
EENT: Denies Sore Throat
Respiratory: Denies Cough or Trouble Breathing
Cardiac: Denies Chest Pain, Diaphoresis, Palpitations or Syncope
Abdomen/GI: Denies Abdominal Pain, Nausea, Vomiting, Diarrhea or Constipated
: Denies Frequency or Urgency
Musculoskeletal: Reports Joint Pain (right hip pain )
Skin: Denies Rash
Neurological: Denies Dizzy, Headache or Numbness
Physical Exam
Vital Signs
Vital Signs
Temp Pulse Resp BP Pulse Ox
98.6 F 69 18 149/74 98
03/17/25 21:01 03/17/25 21:30 03/17/25 20:50 03/17/25 21:00 03/17/25 21:30
Physical Exam
General: Well Developed, No Apparent Distress and Comfortable
HEENT: NormoCephalic, Moist mucous membranes, Atraumatic, Nose Appears Normal and Ears Appear Normal
Respiratory: Clear and Non Labored Respirations
Cardiac: S1/S2 and Regular Rhythm; No Murmur, Rub or Gallop
GI: Soft, Non Tender, Non Distended and Normal Bowel Sounds; No Organomegaly
Rectal: Deferred by Provider
Genito-urinary: Deferred by me
Musculoskeletal: No Clubbing, No Cyanosis and Other (RLE shortened and externally rotated )
Skin: Warm and IV/Catheter Site; No Rash
Neuro: Nonfocal/grossly intact and Sedated
Laboratory Results
-
03/17/25 20:55
03/17/25 20:55
Laboratory Results
Total Bilirubin Cancelled 03/17/25 20:55
AST Cancelled 03/17/25 20:55
ALT Cancelled 03/17/25 20:55
Alkaline Phosphatase Cancelled 03/17/25 20:55
Data Reviewed
-
Diagnostic Radiology: Report Reviewed by me (Rt hip: Acute comminuted right hip fracture. New)
CT Scan: Report Reviewed by me (Head: No acute intracranial abnormality noted. Moderate atrophy. Stable Mild periventricular small vessel seen disease. Stable)
Lab Data: Labs Reviewed by me (hgb 10.0, hct 32.6)
Impression/Plan
-
IMPRESSION/PLAN:
#right hip pain s/p unwitnessed fall
#right hip fracture
hgb 10.0, hct 32.6
Rt hip x-ray: Acute comminuted right hip fracture. New
Head CT: No acute intracranial abnormality noted.
Moderate atrophy. Stable
Mild periventricular small vessel seen disease. Stable
- Admit to med/surg
- Consult Orthopedics
- pain regimen
- NPO after midnight
- PRN O2 for hypoxia s/p pain medication in ED
#UTI
recently dx with UTI at facility
- continue Bactrim
#Alzheimer's disease
- continue donepezil
#depression/anxiety
- continue Buspar, lorazepam and sertraline
#Bal's esophagus
- continue omeprazole
Code status: Full code
DVT prophylaxis: SCDs
[2025-03-17 23:00] VITALS: BP 106/60
[2025-03-17 23:22] LABS: ALT (SGPT) 14 U/L (0-35); AST (SGOT) 29 U/L (14-36); Albumin 3.6 g/dl (3.5-5.0); Alkaline Phosphatase 75 U/L (38-126); Blood Urea Nitrogen 17 mg/dl (7-17); Calcium 9.1 mg/dl (8.4-10.2); Carbon Dioxide 32 mmol/L (22-30); Chloride 107 mmol/L (98-107); Glucose 123 mg/dl (70-99); Potassium 3.6 mmol/L (3.5-5.1); Sodium 140 mmol/L (135-145); Total Protein 7.0 g/dl (6.3-8.2); eGFR > 60.00
[2025-03-18] VITALS (8 sets, daily range): BP systolic 123–150; BP diastolic 65–78; BMI 19.7
--- NOTE | 2025-03-18 02:15 | PTCARENOTE ---
Patient received on unit as admission from emergency room. Patient is unresponsive to commands and does not open eyes. Patient becomes agitated and screams during transition from stretcher to bed secondary to Alzheimer's disease. Unable to
participate in admission process. Skin assessment performed and vital signs assessed per protocol.
--- NOTE | 2025-03-18 06:38 | CON.ORTHO ---
Consultation
-
Date/Time Consultation Requested: Mar 18/2325
Date/Time Consultation Performed: Mar 18/0745
Requesting Provider: BENEDICT Lutz
Performing Provider: Bharati Adorno
Reason for Consultation: Right hip fracture
Consultation - Orthopedics
History
History of Present Illness:
Patient is a 79 y/o female with [facility] of Alzheimer's disease and depression/anxiety who presented to [facility] ED for evaluation of right hip pain s/p unwitnessed fall. Patient resides in memory care unit and paid caregiver at bedside reports she has had a
significant decline with Alzheimer's in the last month to six weeks, has had 4 falls this month and 2 since this past Saturday. She was diagnosed with UTI at facility an started on Bactrim for UTI and has one day of medication remaining. No reported
fever, chills, cough, shortness of breath, nausea, vomiting, constipation or diarrhea. No previous right hip issues. No known prodrome. CT head negative, but unsure if headstrike or LOC given dementia. Given xray findings in the ED we have been
requested in consultation.
Past Medical History:
Alzheimer's disease
depression/anxiety
osteoarthritis
Bal's esophagus
Past Surgical History:
Right Oophorectomy
Right foot surgery
Social History:
Tobacco: Non-smoker
Alcohol: None
Drug: None
Living: Assisted Living, memory care
Family History:
Not pertinent
ROS:
12 point negative except for those mentioned in the HPI
Allergies / Home Medications
Allergy/AdvReac Type Severity Reaction Status Date / Time
erythromycin base Allergy Rash Verified 03/17/25 20:50
levofloxacin (From Levaquin) Allergy Rash Verified 03/17/25 20:50
Penicillins Allergy Unknown Verified 03/17/25 20:50
�Medication �Instructions �Recorded
acetaminophen 325 mg tablet 650 mg PO Q6HPRN PRN MILD 05/03/22
pain/fever
omeprazole 20 mg tablet,delayed 20 mg PO BID Gastrointestinal issue 05/03/22
release
donepezil 5 mg tablet 5 mg PO HS 12/25/24
magnesium oxide 400 mg PO DAILY 12/25/24
sertraline 50 mg tablet 125 mg PO DAILY 12/25/24
lorazepam 0.5 mg tablet 0.5 mg PO Q6HPRN PRN anxiety 01/23/25
buspirone 5 mg tablet 7.5 mg PO BID 03/17/25
sulfamethoxazole 400 1 tab PO BID 03/17/25
mg-trimethoprim 80 mg tablet
(Bactrim)
Vital Signs / Lab Results
Temp Pulse Resp BP Pulse Ox
98.5 F 77 17 138/70 99
03/18/25 02:55 03/18/25 02:55 03/18/25 02:55 03/18/25 02:55 03/18/25 02:55
03/17/25 20:55
03/17/25 22:54
Assessment / Plan
PE: Afeb. Hgb 10. Right hip skin intact. Generalized pain based on grimacing to palpation of the right hip. RLE slightly shortened and externally rotated. Deferred range of motion due to known fracture. Knee nontender. Calf soft nontender. DNVI
RLE
Xrays: RIGHT IT fracture
Impression: JOSE C
Plan: Patient did not participate in a meaningful way during the history and physical. Call placed to the patient's son, Neto Oakes [phone]. 5 attempts made with no answer and full mailbox. Want to discuss the nature of his mom's hip
fracture. Will discuss all nonoperative and operative management, including all the RBAs. Assuming he accepts all the risks, we will look to proceed with surgical correction. Will discuss the postop and rehab course, and will appreciate CM
assistance with disposition back to her facility. OR aware. Plan will be for tomorrow via Drs. Bedoya or Tila. Will make her NPO tomorrow based on the OR and available surgeon's schedule for ORIF RIGHT hip. operative site has been marked as the
right hip. Surgical and blood consents need to be obtained over the phone from her son and POA, Neto Oakes. Disccused with RN, Rosy. Consent currently unsigned/witnessed on her chart. any further workup per the primary team (TT sent to "Aneta"Shira) appreciated later this morning, and will hope for an official clearance for surgery tomorrow. T&S requested. ABAndreas DIEZ. Will follow
--- NOTE | 2025-03-18 07:15 | PTCARENOTE ---
I was able to wipe some parts of her body before pt. started to scream 'NO!'
[2025-03-18] MEDS: BUSPAR 7.5 MG PO ×2 (08:49→21:18)
[2025-03-18] MEDS: PROTONIX 40 MG PO ×2 (08:49→21:20)
[2025-03-18] MEDS: ZOLOFT 125 MG PO (08:50)
[2025-03-18] MEDS: MAGNESIUM OXIDE 400 MG PO (08:50)
--- NOTE | 2025-03-18 08:53 | W.PN.HOSP.TC ---
Addendum entered and electronically signed by Gil Silva MD 03/18/25 12:21:
given patients dementia, unreliable historian to relay any chest pain or SOB.
Addendum entered and electronically signed by Gil Silva MD 03/18/25 12:18:
d/w Echo team; patient uncooperative for Echo study. EKG with NSR, TWI - check trop. Will at present consider patient to intermediate risk for orthopedic procedure.
Original Note:
Today's Communication/Plan
-
see outlined plan
Assessment / Plan
Assessment / Plan
Assessment:
Unwitnessed fall - unclear mechanism of mechanical vs syncopal
- CT head negative
- place on tele and monitor
- EKG
- Echo
Fall with Acute comminuted right hip fracture
- pre-op testing pending
- Orthopedics consulted; ORIF tomorrow pending above testing and POA discussion for consent
- pain control prn
Generalized discomfort
Abd discomfort
- AXR to start to evaluate constipation
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
- ST evaluation
Recent UTI
- completed Bactrim therapy
Depression/Anxiety
- continue Buspar/Ativan/Zoloft
Barretts esophagus
- PPI
DVT ppx: SCDs
Code: Full
Anticipated Discharge: > 48 hours
Subjective/Interval History
-
Date of Service: March 18, 2025
reports R hip pain but also 'everything hurts'
Objective Data
-
Labs:
Laboratory Results
03/17/25 03/17/25 03/17/25
20:55 22:26 22:54
WBC 6.7
Hgb 10.0 L
Hct 32.6 L
Plt Count 245
Sodium 140 140
Potassium Cancelled 3.6
Chloride 104 107
Carbon Dioxide 30 32 H
BUN 18 H 17
Creatinine 0.7 0.7
Glucose 124 H 123 H
Calcium 9.1 9.1
Total Bilirubin Cancelled 0.6
AST Cancelled 29
ALT Cancelled 14
Alkaline Phosphatase Cancelled 75
Vital Signs:
Vital Signs
Temp Pulse Resp BP Pulse Ox
98.5 F 98 20 150/78 97
03/18/25 07:30 03/18/25 07:30 03/18/25 07:30 03/18/25 07:30 03/18/25 07:30
Physical Exam
-
General: No Apparent Distress, Appears Chronically Ill and Other (frail)
HEENT: Normocephalic and Atraumatic
Respiratory: Clear to Auscultation; Negative Wheezes
Cardiac: Regular Rhythm and S1/S2
GI: Soft and Nontender
Musculoskeletal: Other (RLE slightly shortened and externally rotated)
Neuro: Awake
Psych: Apparent Dementia
Data Reviewed
-
Total Time Spent with Patient (in minutes): 42
Labs: Labs Reviewed by me
[2025-03-18] MEDS: BACTRIM 400 MG/80 MG 1 TABLET PO ×2 (09:10→21:18)
--- NOTE | 2025-03-18 09:23 | W.PN.UPDATE ---
Update Note
Progress Note Update
I spoke to the patient's son, Neto. he informed me that her official medical POA is his brother, Lc. he was going to be placing a call to him immediately following our phone call. They are both typically on the same page, with Neto agreeing
that surgery is the right decision. will have my conversation with Neto witnessed by her nurse, Adria, and consent will be finalized on the chart. Again, we are looking to proceed with a surgical fixation of her right hip tomorrow under the
direction of either Dr. Bedoya or Dr. Adorno
[2025-03-18] MEDS: DILAUDID 0.5 MG IV ×2 (09:50→16:14)
[2025-03-18] MEDS: ATIVAN 0.5 MG PO ×2 (09:53→21:21)
[2025-03-18 12:57] LABS: Urine Character Clear (Clear)
[2025-03-18 13:16] LABS: Urine Red Blood Cell 0-2 /HPF (0-2); Urine Squamous Cell 0-2 /LPF (Few); Urine White Cell 0-2 /HPF (0-5)
[2025-03-18 13:32] LABS: Troponin I < 0.012 ng/ml
--- NOTE | 2025-03-18 15:26 | PTOTSP ---
Speech Therapy Evaluation:
Pt with chronic risk factors of dysphagia including hx of dementia with significant decline in recent months. Pt's mentation and limited acceptance of PO remain main barrier to safe PO intake at this time. No chest imaging completed thus far,
however WBC WNL and pt on room air.
Recommend:
1. Temporary NPO
2. Essential meds crushed in puree per RN discretion
3. Oral care 3x/daily
4. FUNERAL HOME ASSISTANT to follow to assess candidacy for diet initiation
--- NOTE | 2025-03-18 20:56 | PTCARENOTE ---
Asked Pt if they wanted to brush their teeth, Pt. said 'NO'.
[2025-03-18] MEDS: ARICEPT 5 MG PO (21:21)
[2025-03-19 03:00] VITALS: BP 111/64
[2025-03-19] MEDS: DILAUDID 0.5 MG IV ×3 (03:48→21:47)
[2025-03-19] MEDS: DILAUDID IV (03:48)
--- NOTE | 2025-03-19 04:00 | PTCARENOTE ---
Patient became out of control and screaming showing signs of agitittion and removing gown and nurse monitoring multiple times overnight. Patient provided Ativan for anxiety at approcimately 9:50pm. Dilaudid provided at approximately 4:00am
secondary to additional outbursts and possible increase in pain manifesting in a similar manner to previous outburst. Overnight provider made aware of situation, recommendation followed.
--- NOTE | 2025-03-19 06:48 | PTCARENOTE ---
Pt. refused to allow PCT to wash their back with CHG cloth.
[2025-03-19 07:00] VITALS: BP 129/70
[2025-03-19 07:07] LABS: Hematocrit 30.3 % (37.0-47.0); Hemoglobin 9.2 g/dL (12.0-16.0); Mean Corp Hgb Conc. 30.4 g/dL (33.0-37.0); Mean Corpuscular Volume 91.8 fL (81.0-99.0); Platelet Count 245 10^3/uL (130-400); Red Cell Dist. Width 15.1 % (11.5-14.5)
[2025-03-19 07:37] LABS: Blood Urea Nitrogen 15 mg/dl (7-17); Calcium 9.2 mg/dl (8.4-10.2); Carbon Dioxide 29 mmol/L (22-30); Chloride 105 mmol/L (98-107); Estimated Creatinine Clearance 50 ml/min; Glucose 131 mg/dl (70-99); Potassium 4.5 mmol/L (3.5-5.1); Sodium 141 mmol/L (135-145); eGFR > 60.00
[2025-03-19] MEDS: ZOLOFT 125 MG PO (08:38)
[2025-03-19] MEDS: MAGNESIUM OXIDE 400 MG PO (08:38)
[2025-03-19] MEDS: PROTONIX 40 MG PO ×2 (08:38→21:42)
[2025-03-19] MEDS: BUSPAR 7.5 MG PO ×2 (08:38→21:41)
[2025-03-19] MEDS: ATIVAN 0.5 MG PO (08:41)
[2025-03-19] MEDS: TYLENOL/FEVERALL 650 MG RECTAL (08:56)
--- NOTE | 2025-03-19 08:57 | W.PN.UPDATE ---
Update Note
Progress Note Update
Updated consent to reflect her son, Lc, signing as her medical POA. RN witnessed by Adria. Patient to remain at bed rest. With 101.3 fever. Will continue work-up per primary and delay surgery until possibly tomorrow. She will be undergoing a gamma
nail fixation of her right hip under the direction of Dr. Desir, likely. Consent should be updated over weekend to refect surgeon. Orders adjusted to tomorrow for anticipated OR. Will follow
[2025-03-19 09:24] LABS: COVID-19 Antigen Negative (Negative)
--- NOTE | 2025-03-19 09:53 | W.PN.HOSP.TC ---
Today's Communication/Plan
-
OR delayed 24 hours to allow sepsis workup; CT imaging.
empiric Abx
d/w Orthopedics
Family updated
Assessment / Plan
Assessment / Plan
Assessment:
Unwitnessed fall - unclear mechanism of mechanical vs syncopal
- CT head negative
- place on tele and monitor; sinus tachy
- EKG with NSR and vague TWI laterally, trop normal
- Echo attempted, patient could not tolerate yesterday, will attempt again today with IV Valium for sedation
New onset Fever/tachycardia concerning for sepsis
- skin exam without acute findings
- CXR and AXR negative
- check CT C/A/P
- COVID/Flu negative
- Ucx pending
- Bcx pending
- started empiric Vanco/Cefepime
Fall with Acute comminuted right hip fracture
- pre-op testing pending as above
- Orthopedics consulted; delayed ORIF today due to sepsis workup; will tentatively proceed with ORIF tomorrow; reviewed with Dr. Adorno
- pain control prn
Generalized discomfort
Abd discomfort
- AXR with constipation
- CT pending
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
- ST evaluation; NPO for now
Recent UTI
- completed Bactrim therapy
- repeat Urine culture pending
Depression/Anxiety
- continue Buspar/Ativan/Zoloft
Barretts esophagus
- PPI
DVT ppx: SCDs
Code: Full
Anticipated Discharge: > 48 hours
Subjective/Interval History
-
Date of Service: March 19, 2025
fever this AM, 101.3
initially COVID/Flu and CXR negative
Objective Data
-
Labs:
Laboratory Results
03/19/25
06:16
WBC 14.6 H
Hgb 9.2 L
Hct 30.3 L
Plt Count 245
Sodium 141
Potassium 4.5
Chloride 105
Carbon Dioxide 29
BUN 15
Creatinine 0.7
Glucose 131 H
Calcium 9.2
Vital Signs:
Vital Signs
Temp Pulse Resp BP Pulse Ox
101.3 F H 117 22 129/70 93
03/19/25 07:00 03/19/25 07:00 03/19/25 07:00 03/19/25 07:00 03/19/25 07:00
Physical Exam
-
General: No Apparent Distress and Appears Chronically Ill
HEENT: Normocephalic and Atraumatic
Respiratory: Clear to Auscultation; Negative Wheezes
Cardiac: Regular Rhythm, S1/S2 and Tachycardic
GI: Soft and Nontender
Psych: Apparent Dementia
Data Reviewed
-
Total Time Spent with Patient (in minutes): 51
Labs: Labs Reviewed by me
--- NOTE | 2025-03-19 10:35 | PN.CDI ---
CDI
- -
CDI:
Physician Documentation Request
Admit Date: 03/17/25 23:22
Dear Doctor Shira,
Patient admitted for hip fracture.
Please review the following and provide your response in the progress notes.
Clinical Indicators:
Height: 5' 1'
Weight: 104 lbs
BMI:19.7
If possible, please provide an associated diagnosis related to the abnormal BMI, such as:
Underweight
Cachectic
BMI is not significant
Other
BMI < or = to 19.9
Underweight
Weight Loss
Cachectic
Anorexia
Use of terms such as suspected, likely, concern for, or probable (associated with a specific diagnosis that is being evaluated, monitored, or treated as if it exists) are acceptable and can be coded in the inpatient setting, when documented at the
time of discharge.
Thank you,
Carolyne Sheehan RN, BSN
CDI Specialist
Available via [place] text
Please use your independent medical judgment in providing your response.
[2025-03-19 11:27] VITALS: BP 153/76
[2025-03-19] MEDS: NSS 1000 IV (11:34)
[2025-03-19] MEDS: VANCOCIN 275 MG IV (11:44)
[2025-03-19] MEDS: MAXIPIME 1000 MG IV ×2 (12:51→17:38)
[2025-03-19] MEDS: STERILE WATER FOR INJECTION 10 ML IV ×2 (12:51→17:38)
--- NOTE | 2025-03-19 13:43 | CM ---
Addendum entered by Caroline Contreras 03/19/25 15:59:
CM spoke with pt's son who is interested in his mother going to [facility] at discharge for group home care. Referral to be sent to [facility] and additional [facility] SNFs for son to consider in the event [facility] cannot
offer a bed.
Original Note:
Pt admitted with fx hip; s/p fall in the community. Pt lives at [facility] in the memory care unit.
Surgery to be done tomorrow due to sepsis work up in progress.
Plan: CM will follow to coordinate discharge plans; likely SNF vs return to [facility] when medically cleared.
[2025-03-19 15:00] VITALS: BP 124/66
[2025-03-19] MEDS: VALIUM INJECTION 1 MG IV (15:22)
--- NOTE | 2025-03-19 15:24 | PHA.VAN.IN ---
Assessment
- Assessment
Renal Function: Appears similar to baseline
Maximum Temperature: 101.3F
Concomitant Antimicrobials: Cefepime
AUC Dosing Plan
- Dosing Variables
Dosing Weight (kg): 47
Dosing CrCl (ml/min): 50
Vd coefficient (L/kg): 0.7
- Empiric Dosing
Initial / Loading Dose: Vancomycin 1250mg IV- administered 03/19 at 1145
Maintenance Regimen: Vancomycin 750mg IV Q24h to start 03/20 at 0600
Estimated AUC (mcg*h/mL): 508
Estimated Peak (mcg*h/mL): 34.1
Estimated Trough (mcg/ml): 11.9
Estimated Half Life (H): 15.1
- Monitoring
No levels ordered at this time: consider levels in the next few days.
Pharmacokinetics Vancomycin I
- -
Patient Age: 79
Patient Sex: Female
Vancomycin Day #: 1
Indication: Other
Requesting Provider: Dr. Silva
Pertinent Antimicrobial Allergies:
Penicillins Allergy (Verified 03/17/25 20:50)
Unknown
erythromycin base Allergy (Verified 03/17/25 20:50)
Rash
levofloxacin (From Levaquin) Allergy (Verified 03/17/25 20:50)
Rash
Height / Weight:
Height 5 ft 1 in
Actual Weight 47.259 kg
Pertinent Past Medical History: BMI ~20
- Vital Signs / Lab Results
Temp Pulse Resp BP Pulse Ox
98.4 F 94 20 124/66 94
03/19/25 15:00 03/19/25 15:00 03/19/25 15:00 03/19/25 15:00 03/19/25 15:00
Lab Results - Hematology
03/17/25 03/19/25
20:55 06:16
WBC 6.7 14.6 H
Lab Results - Chemistry
03/17/25 03/17/25 03/19/25
20:55 22:54 06:16
BUN 18 H 17 15
Creatinine 0.7 0.7 0.7
Estimated Creat Clear 50
Albumin Cancelled 3.6
Lab Results - Urine
03/18/25
12:28
Urine Nitrite (Reflex) Negative
Leukocyte Esterase Rfl Negative
Urine WBC (Reflex) 0-2
Ur Squamous Epith Cells 0-2
Urine Bacteria (Reflex) Few A
Microbiology Results
03/19/25 08:49 Influenza Types A & B (RADHA) - Final
Nasal Swab Negative for Influenza A & B, NAAT
Negative results must be combined with clinical observations
and patient history.
Nucleic Acid Amplification test (NAAT)performed on the
[employer] platform.
[2025-03-19 19:34] VITALS: BP 164/95
[2025-03-19] MEDS: ARICEPT 5 MG PO (21:42)
[2025-03-19 23:36] VITALS: BP 112/57
[2025-03-20] VITALS (20 sets, daily range): BP systolic 101–144; BP diastolic 55–86; PULSE 90; O2SAT 98
[2025-03-20] MEDS: MAXIPIME 1000 MG IV ×4 (00:35→17:16)
[2025-03-20] MEDS: STERILE WATER FOR INJECTION 10 ML IV ×4 (00:36→17:16)
[2025-03-20] MEDS: NSS 1000 IV ×2 (02:12→10:51)
[2025-03-20] MEDS: DILAUDID 0.5 MG IV ×3 (03:18→17:44)
[2025-03-20] MEDS: ATIVAN 0.5 MG PO (03:30)
[2025-03-20] MEDS: VANCOCIN 150 IV (05:13)
[2025-03-20 05:54] LABS: Hematocrit 28.5 % (37.0-47.0); Hemoglobin 8.6 g/dL (12.0-16.0); Mean Corp Hgb Conc. 30.2 g/dL (33.0-37.0); Mean Corpuscular Volume 92.5 fL (81.0-99.0); Platelet Count 220 10^3/uL (130-400); Red Cell Dist. Width 14.9 % (11.5-14.5)
--- NOTE | 2025-03-20 06:04 | PTCARENOTE ---
pt npo- chg bath with full linen change completed- pt with pain confusion and anxiety making her difficult to mange- resistant to all care-
[2025-03-20 06:10] LABS: Blood Urea Nitrogen 16 mg/dl (7-17); Calcium 8.6 mg/dl (8.4-10.2); Carbon Dioxide 25 mmol/L (22-30); Chloride 112 mmol/L (98-107); Estimated Creatinine Clearance 59 ml/min; Glucose 107 mg/dl (70-99); Potassium 3.9 mmol/L (3.5-5.1); Sodium 140 mmol/L (135-145); eGFR > 60.00
--- NOTE | 2025-03-20 07:28 | W.PN.UPDATE ---
Update Note
Progress Note Update
Spoke w nursing (Dg) this am and she seems to be doing fine. She is afebrile overnight so proceed with surgery this morning.
--- NOTE | 2025-03-20 07:31 | PHA.VAN.FU ---
Vancomycin Assessment / Plan
- Assessment
Renal Function: Stable
WBC's are: Trending Down
In the past 24 hrs, patient has been: Febrile (03/19 @1030 TMAX 101.3F)
Concomitant Antimicrobials: CEFEPIME
- Dosing Plan
Continue: VANCO 750MG Q24
- Monitoring Plan
No level(s) ordered at this time: CONSIDER LEVELS AT STEADY STATE
- Follow Up
Pharmacy will continue to follow.
Vancomycin Follow UP
- -
Patient Age: 79
Patient Sex: Female
Vancomycin Day #: 2
Indication: Other
Requesting Provider: Dr. Silva
Pertinent Antimicrobial Allergies:
Penicillins Allergy (Verified 03/17/25 20:50)
Unknown
erythromycin base Allergy (Verified 03/17/25 20:50)
Rash
levofloxacin (From Levaquin) Allergy (Verified 03/17/25 20:50)
Rash
Height / Weight:
Height 5 ft 1 in
Actual Weight 47.259 kg
Pertinent Past Medical History: BMI ~20
- Vital Signs / Lab Results
Temp Pulse Resp BP Pulse Ox
98.7 F 107 18 144/66 90
03/20/25 03:11 03/20/25 03:11 03/20/25 03:11 03/20/25 03:11 03/20/25 03:11
Lab Results - Hematology
03/17/25 03/19/25 03/20/25
20:55 06:16 05:18
WBC 6.7 14.6 H 12.9 H
Lab Results - Chemistry
03/17/25 03/17/25 03/19/25
20:55 22:54 06:16
BUN 18 H 17 15
Creatinine 0.7 0.7 0.7
Estimated Creat Clear 50
Albumin Cancelled 3.6
03/20/25
05:18
BUN 16
Creatinine 0.6
Estimated Creat Clear 59
Albumin
Microbiology Results
03/19/25 08:49 Influenza Types A & B (RADHA) - Final
Nasal Swab Negative for Influenza A & B, NAAT
Negative results must be combined with clinical observations
and patient history.
Nucleic Acid Amplification test (NAAT)performed on the
[employer] platform.
--- NOTE | 2025-03-20 08:16 | W.PN.HOSP.TC ---
Today's Communication/Plan
-
continue empiric broad spectrum antibiotics until cultures at least 48 hours negative; check MRSA swab
fever curve and WBC count improving
Proceed with orthopedic surgery
Assessment / Plan
Assessment / Plan
Assessment:
Unwitnessed fall - unclear mechanism of mechanical vs syncopal
- CT head negative
- place on tele and monitor; sinus tachy
- EKG with NSR and vague TWI laterally, trop normal
- Echo: EF 65% with normal ventricular function, aortic sclerosis, mild AR, mild TR
- intermediate risk patient for intermediate risk procedure; no further testing indicated.
New onset Fever/tachycardia concerning for sepsis
- skin exam without acute findings
- CXR and AXR negative
- CT C/A/P without acute findings of infection, did show bronchial wall thickening and atelectasis
- COVID/Flu negative
- Ucx pending
- Bcx pending
- continue empiric Vanco/Cefepime, day 2
Fall with Acute comminuted right hip fracture
- ORIF today with orthopedics
- pain control prn
- post-op PT/OT
Generalized discomfort
Abd discomfort
- AXR with constipation; mild fecal burden on CT
- bowel regimen when able
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
- ST evaluation; NPO for now
Recent UTI
- completed Bactrim therapy
- repeat Urine culture negative
Depression/Anxiety
- continue Buspar/Ativan/Zoloft
Barretts esophagus
- PPI
Cachexia
DVT ppx: SCDs
Code: Full
Anticipated Discharge: > 48 hours
Subjective/Interval History
-
Date of Service: March 20, 2025
no further fevers since 101 yesterday morning
d/w lab and of this encounter, no growth in cultures
CT was negative for acute infectious signs
patient proceeding with surgery today
Objective Data
-
Labs:
Laboratory Results
03/20/25
05:18
WBC 12.9 H
Hgb 8.6 L
Hct 28.5 L
Plt Count 220
Sodium 140
Potassium 3.9
Chloride 112 H
Carbon Dioxide 25
BUN 16
Creatinine 0.6
Glucose 107 H
Calcium 8.6
Vital Signs:
Vital Signs
Temp Pulse Resp BP Pulse Ox
98.7 F 107 18 144/66 90
03/20/25 03:11 03/20/25 03:11 03/20/25 03:11 03/20/25 03:11 03/20/25 03:11
I&O
03/19/25 03/20/25 03/21/25
06:59 06:59 06:59
Intake Total 1580 / 1580
Balance 1580 / 1580
Physical Exam
-
General: No Apparent Distress
HEENT: Normocephalic and Atraumatic
Respiratory: Negative Wheezes
Cardiac: Regular Rhythm and S1/S2
Neuro: Awake
Psych: Calm
Data Reviewed
-
Total Time Spent with Patient (in minutes): 42
Labs: Labs Reviewed by me
[2025-03-20] MEDS: PROTONIX PO (08:59)
[2025-03-20] MEDS: ZOLOFT PO (08:59)
[2025-03-20] MEDS: BUSPAR PO (08:59)
[2025-03-20] MEDS: MAGNESIUM OXIDE PO (08:59)
--- NOTE | 2025-03-20 09:20 | W.IMMPOSTOP ---
Surgical Immed Post Op Note
-
Primary Surgeon: Karlee
Assisting Surgeon: Walter Dozier PA-C
Pre-op Diagnosis: Right hip intertrochanteric fracture
Post-op Diagnosis: Same
Procedure Performed: Right hip Gamma nail fixation
Anesthesia Type: General
Specimen / Cultures: None
Estimated Blood Loss: 20cc
Complications: None
Operative Findings: Very poor bone quality. Very soft bone both proximally and distally.
Dictated [id number]
Plan:
- WBAT
- PT/O
- If there are no contraindications, ASA 325 for 30 days
[2025-03-20] MEDS: ANCEF 5 IV (17:15)
[2025-03-20] MEDS: SENOKOT 17.2 MG PO (21:12)
[2025-03-20] MEDS: BUSPAR 7.5 MG PO (21:12)
[2025-03-20] MEDS: COLACE 100 MG PO (21:12)
[2025-03-20] MEDS: PROTONIX 40 MG PO (21:12)
[2025-03-20] MEDS: ARICEPT 5 MG PO (21:34)
[2025-03-21] VITALS (7 sets, daily range): BP systolic 113–145; BP diastolic 56–89; O2SAT 95
[2025-03-21] MEDS: ANCEF 5 IV (00:08)
[2025-03-21] MEDS: MAXIPIME 1000 MG IV ×2 (00:11→05:47)
[2025-03-21] MEDS: STERILE WATER FOR INJECTION 10 ML IV ×2 (00:11→05:47)
[2025-03-21] MEDS: NSS IV (00:20)
[2025-03-21] MEDS: DILAUDID 0.5 MG IV ×4 (00:34→18:19)
--- NOTE | 2025-03-21 05:04 | PTCARENOTE ---
pt rec'vd from [facility], IVF infusing, pt alert to self sleepy but easily aroused to voice. plan of care implemented.
[2025-03-21] MEDS: ATIVAN 0.5 MG PO ×2 (05:09→20:52)
[2025-03-21] MEDS: VANCOCIN 150 IV (06:11)
--- NOTE | 2025-03-21 07:35 | W.PN.ORTHO ---
Today's Communication / Plan
-
PT/OT
Aspirin for DVT/mechanical devices for DVT prophylaxis
Weightbearing as tolerated with walker
Skin clips removal 2 weeks postop
Follow-up with orthopedics 1 month postop
halfway facility once medically stable
Assessment
.
Distal Motor Intact: Yes
Dressing:
Clean, dry and intact.
Plan
.
Surgery / Date: R hip Gamma Nail 03/20 [place]
DVT Prophylaxis: Aspirin
Activity:
Out of bed.
PT/OT
Discharge Plan: SNF
Subjective
.
.:
Patient resting comfortably.
Vital Signs and Labs
.
Vital Signs and Labs:
Temp Pulse Resp BP Pulse Ox
98 F 80 18 130/68 95
03/21/25 03:00 03/21/25 03:00 03/21/25 03:00 03/20/25 23:00 03/21/25 03:00
[2025-03-21 07:51] LABS: Hematocrit 25.3 % (37.0-47.0); Hemoglobin 7.6 g/dL (12.0-16.0); Mean Corp Hgb Conc. 30.0 g/dL (33.0-37.0); Mean Corpuscular Volume 93.4 fL (81.0-99.0); Platelet Count 227 10^3/uL (130-400); Red Cell Dist. Width 14.7 % (11.5-14.5)
[2025-03-21 08:31] LABS: Blood Urea Nitrogen 19 mg/dl (7-17); Calcium 8.1 mg/dl (8.4-10.2); Carbon Dioxide 27 mmol/L (22-30); Chloride 112 mmol/L (98-107); Estimated Creatinine Clearance 59 ml/min; Glucose 119 mg/dl (70-99); Potassium 4.1 mmol/L (3.5-5.1); Sodium 141 mmol/L (135-145); eGFR > 60.00
--- NOTE | 2025-03-21 08:35 | PHA.VAN.FU ---
Vancomycin Assessment / Plan
- Assessment
Renal Function: Stable
WBC's are: Trending Down
Concomitant Antimicrobials: CEFEPIME
- Dosing Plan
Continue: VANCO 750MG Q24
- Monitoring Plan
Peak Level: 03/22 @0900
Trough Level: 03/23 @0530
- Follow Up
Pharmacy will continue to follow.
Vancomycin Follow UP
- -
Patient Age: 79
Patient Sex: Female
Vancomycin Day #: 3
Indication: Other
Requesting Provider: Dr. Silva
Pertinent Antimicrobial Allergies:
Penicillins Allergy (Verified 03/17/25 20:50)
Unknown
erythromycin base Allergy (Verified 03/17/25 20:50)
Rash
levofloxacin (From Levaquin) Allergy (Verified 03/17/25 20:50)
Rash
Height / Weight:
Height 5 ft 1 in
Actual Weight 47.259 kg
Pertinent Past Medical History: BMI ~20
- Vital Signs / Lab Results
Temp Pulse Resp BP Pulse Ox
98 F 80 18 130/68 95
03/21/25 03:00 03/21/25 03:00 03/21/25 03:00 03/20/25 23:00 03/21/25 03:00
Lab Results - Hematology
03/19/25 03/20/25 03/21/25
06:16 05:18 07:10
WBC 14.6 H 12.9 H 11.4 H
Lab Results - Chemistry
03/19/25 03/20/25 03/21/25
06:16 05:18 07:10
BUN 15 16 19 H
Creatinine 0.7 0.6 0.6
Estimated Creat Clear 50 59 59
Microbiology Results
03/19/25 11:44 Blood Culture - Preliminary
Blood/Venous No Growth in 24 hours- Final report to follow
03/19/25 09:15 Blood Culture - Preliminary
Blood/Venous No Growth in 24 hours- Final report to follow
03/18/25 12:28 Urine Culture - Final
Urine NO GROWTH
03/19/25 08:49 Influenza Types A & B (RADHA) - Final
Nasal Swab Negative for Influenza A & B, NAAT
Negative results must be combined with clinical observations
and patient history.
Nucleic Acid Amplification test (NAAT)performed on the
[employer] platform.
--- NOTE | 2025-03-21 08:42 | W.PN.HOSP.TC ---
Today's Communication/Plan
-
Lovenox while NPO for DVT ppx
stop Abx with negative imaging and cultures; observe Fever/WBC trends
Assessment / Plan
Assessment / Plan
Assessment:
Unwitnessed fall - unclear mechanism of mechanical vs syncopal
- CT head negative
- place on tele and monitor; sinus tachy
- EKG with NSR and vague TWI laterally, trop normal
- Echo: EF 65% with normal ventricular function, aortic sclerosis, mild AR, mild TR
New onset Fever/tachycardia concerning for sepsis
- skin exam without acute findings
- CXR and AXR negative
- CT C/A/P without acute findings of infection, did show bronchial wall thickening and atelectasis
- COVID/Flu negative
- Ucx NGTD
- Bcx NGTD x 24 hours
- stop Abx
Fall with Acute comminuted right hip fracture
- s/p Right hip Gamma nail fixation 03/21/25
- DVT ppx: Lovenox
- pain control prn
- post-op PT/OT
Generalized discomfort
Abd discomfort
- AXR with constipation; mild fecal burden on CT
- bowel regimen when able
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
- ST evaluation; NPO for now
Recent UTI
- completed Bactrim therapy
- repeat Urine culture negative
Depression/Anxiety
- continue Buspar/Ativan/Zoloft
Barretts esophagus
- PPI
Cachexia
DVT ppx: SCDs
Code: Full
Anticipated Discharge: > 48 hours
Subjective/Interval History
-
Date of Service: March 21, 2025
resting comfortably
Objective Data
-
Labs:
Laboratory Results
03/21/25
07:10
WBC 11.4 H
Hgb 7.6 L
Hct 25.3 L
Plt Count 227
Sodium 141
Potassium 4.1
Chloride 112 H
Carbon Dioxide 27
BUN 19 H
Creatinine 0.6
Glucose 119 H
Calcium 8.1 L
Vital Signs:
Vital Signs
Temp Pulse Resp BP Pulse Ox
98 F 80 18 130/68 95
03/21/25 03:00 03/21/25 03:00 03/21/25 03:00 03/20/25 23:00 03/21/25 03:00
I&O
03/20/25 03/21/25 03/22/25
06:59 06:59 06:59
Intake Total 1580 / 1580 1220 / 1220
Balance 1580 / 1580 1220 / 1220
Physical Exam
-
General: No Apparent Distress and Appears Chronically Ill
HEENT: Normocephalic and Atraumatic
Respiratory: Negative Wheezes
Cardiac: Regular Rhythm and S1/S2
GI: Soft
Neuro: Awake
Psych: Confused and Apparent Dementia
Data Reviewed
-
Total Time Spent with Patient (in minutes): 42
Labs: Labs Reviewed by me
[2025-03-21] MEDS: MAGNESIUM OXIDE PO (10:04)
[2025-03-21] MEDS: PROTONIX PO (10:04)
[2025-03-21] MEDS: COLACE PO ×2 (10:04→21:09)
[2025-03-21] MEDS: SENOKOT PO ×2 (10:05→21:09)
[2025-03-21] MEDS: BUSPAR 7.5 MG PO ×2 (10:14→20:52)
[2025-03-21] MEDS: PROTONIX IV 40 MG IV ×2 (10:20→20:52)
[2025-03-21] MEDS: NSS (PRESERVATIVE FREE) 10 ML IV ×2 (10:20→20:53)
[2025-03-21] MEDS: ZOLOFT PO (10:20)
[2025-03-21] MEDS: NSS 1000 IV (10:34)
[2025-03-21] MEDS: STERILE WATER FOR INJECTION IV ×2 (13:04→17:52)
[2025-03-21] MEDS: LOVENOX 30 MG SC (17:53)
--- NOTE | 2025-03-21 18:28 | PTOTSP ---
ST Follow-Up
Pt currently presenting with clinical signs of mild to moderate oropharyngeal dysphagia characterized by inconsistent oral acceptance, reduced oral awareness, reduced bolus control, and coughing with large quantities of thin liquids that is
suspicious for airway invasion.
Recommendations:
- Continue NPO status but permit PO meds whole/crushed in pureed solids.
- ARHP - ice chips permitted with supervision after thorough oral care.
- Aspiration precautions: HOB upright during PO intake; oral care BID; pt must be fully awake/alert for PO intake.
- MASTER ELECTRICIAN to f/u re: re-assessing pt's candidacy to initiate PO diet consistencies.
--- NOTE | 2025-03-21 18:33 | PTCARENOTE ---
pt awaking during afternoon eyes slowly opening, smiled a couple of times. then went to sleep after pain medication. Awoke with ST and having ice chips she became very upset yelling and afraid. starting to pull at clothes , blankets etc. pain
medication given b/c pt answered yes that hip hurt but also met on nonverbal scale. Upper dressing changes earlier in day. Music playing to relax her.
[2025-03-22] MEDS: STERILE WATER FOR INJECTION IV ×3 (01:36→13:19)
[2025-03-22] MEDS: NSS 1000 IV ×2 (02:13→17:33)
[2025-03-22] MEDS: ATIVAN 0.5 MG PO ×2 (04:52→20:28)
[2025-03-22 07:44] VITALS: BP 169/95
[2025-03-22 08:10] VITALS: BMI 19.7
[2025-03-22] MEDS: COLACE PO ×2 (09:10→20:16)
[2025-03-22] MEDS: SENOKOT PO ×3 (09:13→20:16)
[2025-03-22] MEDS: PROTONIX IV IV (09:19)
[2025-03-22] MEDS: NSS (PRESERVATIVE FREE) IV (09:19)
[2025-03-22] MEDS: BUSPAR PO (09:19)
--- NOTE | 2025-03-22 09:29 | W.PN.ORTHO ---
Today's Communication / Plan
-
Appreciate primary team, continue treatment
Dispo likely SNF, appreciate CM
Continue WBAT B/L LEs on walker
PT/OT
Lovenox for DVT ppx
Pain control, avoid narcs
Dressing to remain 7-10 days
Tobi out 2 weeks (SNF or office)
If tobi out at SNF outpatient Ortho follow-up 4 weeks
Ortho to sign off, please reengage with any pertinent questions as necessary
Assessment
.
Distal Motor Intact: Yes
Dressing:
Clean, dry and intact. mild strikethrough, contained
Assessment:
POD#2 Left gamma nail
Overall doing/fell
Calf soft, nontender
Plan
.
Surgery / Date: Right Gamma nail Mar 18 ([place])
DVT Prophylaxis: Lovenox
Activity:
Out of bed. WBAT RLE on walker
PT/OT
Discharge Plan: SNF (appreciate CM)
Subjective
.
.:
Patient resting comfortably. baseline dementia
Vital Signs and Labs
.
Vital Signs and Labs:
Temp Pulse Resp BP Pulse Ox
98.3 F 110 20 169/95 96
03/22/25 07:44 03/22/25 07:44 03/22/25 07:44 03/22/25 07:44 03/22/25 07:44
[2025-03-22 09:44] LABS: Hematocrit 27.7 % (37.0-47.0); Hemoglobin 8.5 g/dL (12.0-16.0); Mean Corp Hgb Conc. 30.7 g/dL (33.0-37.0); Mean Corpuscular Volume 93.6 fL (81.0-99.0); Platelet Count 333 10^3/uL (130-400); Red Cell Dist. Width 14.4 % (11.5-14.5)
[2025-03-22 10:25] LABS: Blood Urea Nitrogen 14 mg/dl (7-17); Calcium 8.9 mg/dl (8.4-10.2); Carbon Dioxide 23 mmol/L (22-30); Chloride 111 mmol/L (98-107); Estimated Creatinine Clearance 59 ml/min; Glucose 87 mg/dl (70-99); Potassium 4.3 mmol/L (3.5-5.1); Sodium 143 mmol/L (135-145); eGFR > 60.00
--- NOTE | 2025-03-22 11:43 | W.PN.HOSP.TC ---
Addendum entered and electronically signed by Cricket Avalos MD 03/24/25 07:59:
Acute on chronic anemia - drop in HH since post op noted -possibly sec to acute blood loss and dilutional.
Original Note:
Today's Communication/Plan
-
Speech eval
DC planning
Assessment / Plan
Assessment / Plan
Assessment:
Unwitnessed fall - unclear mechanism mechanical vs syncopal
- CT head negative
- place on tele and monitor; sinus tachy.
- EKG with NSR and vague TWI laterally, trop normal
- Echo: EF 65% with normal ventricular function, aortic sclerosis, mild AR, mild TR
New onset Fever/tachycardia concerning for sepsis
- Negative evaluation so far and afebrile currently without antibiotics. Improving white count without antibiotics.
- CXR and AXR negative
- CT C/A/P without acute findings of infection, did show bronchial wall thickening and atelectasis
- COVID/Flu negative
- Ucx NGTD
- Bcx NGTD x 24 hours
- Off of antibiotic Abx
Fall with Acute comminuted right hip fracture
- s/p Right hip Gamma nail fixation 03/21/25
- DVT ppx: Lovenox
- pain control prn
- post-op PT/OT
Generalized discomfort
Abd discomfort
- AXR with constipation; mild fecal burden on CT
- bowel regimen when able
Alzheimer dementia, suspected moderate to severe-patient with behavioral disturbances but today pleasantly confused.
- ST evaluation; NPO for now
Recent UTI
- completed Bactrim therapy
- repeat Urine culture negative
Depression/Anxiety
- continue Buspar/Ativan/Zoloft
Barretts esophagus
- PPI
Cachexia
DVT ppx: SCDs
Code: Full
Await follow-up speech therapy eval and if related for oral diet will plan for discharge to rehab
Anticipated Discharge: Today
Subjective/Interval History
-
Date of Service: March 22, 2025
No agitation this morning. Pleasantly confused. Follows simple commands. Her best friend is at bedside. She had agitation and resistant to care yesterday.
According to the friend she moved into memory care unit since November of this year.
Difficult historian because of the dementia. Not oriented.
Denies any shortness of breath or chest pain. No nausea vomiting.
According to the friend that she can get paranoid at times
Objective Data
-
Labs:
Laboratory Results
03/22/25
09:19
WBC 11.6 H
Hgb 8.5 L
Hct 27.7 L
Plt Count 333 D
Sodium 143
Potassium 4.3
Chloride 111 H
Carbon Dioxide 23
BUN 14
Creatinine 0.4 L
Glucose 87
Calcium 8.9
Vital Signs:
Vital Signs
Temp Pulse Resp BP Pulse Ox
98.3 F 110 20 169/95 96
03/22/25 07:44 03/22/25 07:44 03/22/25 07:44 03/22/25 07:44 03/22/25 10:25
I&O
03/21/25 03/22/25 03/23/25
06:59 06:59 06:59
Intake Total 1220 / 1220 640 / 640
Balance 1220 / 1220 640 / 640
Physical Exam
-
General: Comfortable
Respiratory: Clear to Auscultation (Anterior auscultation) and Non Labored Respirations; Negative Accessory Resp Muscle Use
Cardiac: Regular Rhythm and S1/S2
GI: Soft
Neuro: Awake and Alert; Negative Oriented
Psych: Calm and Confused
Data Reviewed
-
Labs: Labs Reviewed by me
[2025-03-22] MEDS: NSS (PRESERVATIVE FREE) 10 ML IV ×2 (11:50→20:16)
[2025-03-22] MEDS: PROTONIX IV 40 MG IV ×2 (11:50→20:16)
[2025-03-22] MEDS: BUSPAR 7.5 MG PO ×2 (11:54→20:16)
[2025-03-22 12:21] VITALS: BP 113/89; O2SAT 95
--- NOTE | 2025-03-22 15:12 | CM ---
CM reviewed chart
Call from [facility]/admissions Ray
Pt's son completed tour of facility today
At this time, referral to [facility] remains pending
[facility] concerned pt will need bed in their dementia unit and they are currently full
They will continue to follow
At this time, [facility] has clinically offered bed on dc pending availability
CM will continue to follow for dc planning
Discharge Disposition- SNF
[2025-03-22 15:37] VITALS: BP 123/82
[2025-03-22] MEDS: NSS IV (17:33)
[2025-03-22] MEDS: LOVENOX 30 MG SC (17:40)
[2025-03-22] MEDS: DILAUDID 0.5 MG IV (20:13)
[2025-03-22 23:06] VITALS: BP 148/75
[2025-03-23] MEDS: NSS 1000 IV (05:38)
[2025-03-23 05:53] LABS: Hematocrit 22.2 % (37.0-47.0); Hemoglobin 7.0 g/dL (12.0-16.0); Mean Corp Hgb Conc. 31.5 g/dL (33.0-37.0); Mean Corpuscular Volume 91.0 fL (81.0-99.0); Platelet Count 288 10^3/uL (130-400); Red Cell Dist. Width 14.5 % (11.5-14.5)
[2025-03-23 06:20] LABS: Blood Urea Nitrogen 11 mg/dl (7-17); Calcium 8.2 mg/dl (8.4-10.2); Carbon Dioxide 25 mmol/L (22-30); Chloride 111 mmol/L (98-107); Estimated Creatinine Clearance 59 ml/min; Glucose 85 mg/dl (70-99); Potassium 3.1 mmol/L (3.5-5.1); Sodium 140 mmol/L (135-145); eGFR > 60.00
[2025-03-23 07:18] VITALS: BP 148/61
[2025-03-23] MEDS: BUSPAR 7.5 MG PO (09:55)
[2025-03-23] MEDS: SENOKOT 17.2 MG PO (09:55)
[2025-03-23] MEDS: PROTONIX IV 40 MG IV (09:55)
[2025-03-23] MEDS: NSS (PRESERVATIVE FREE) 10 ML IV (09:55)
[2025-03-23] MEDS: COLACE PO (09:56)
--- NOTE | 2025-03-23 13:21 | PN.CDI ---
CDI
- -
CDI:
Physician Documentation Request
Admit Date: 03/17/25 23:22
Dear Doctor Robbie,
Patient admitted for hip fracture.
03/20 Anesthesia Report: 'Input Normosol: 500 mL...Output Blood Loss: 20 mL'
Laboratory Tests
03/17/25 03/20/25 03/23/25
20:55 05:18 05:26
Hgb 10.0 L 8.6 L 7.0 L
Hct 32.6 L 28.5 L 22.2 L
Based on the above, could you clarify in the progress notes, the appropriate diagnosis, if significant, that supports the above abnormalities and additional evaluation, monitoring and/or treatment rendered:
Acute anemia multifactorial blood loss and hemodilution
Anemia (please specify type)
Drop in hemoglobin
Other
Use of terms such as suspected, likely, concern for, or probable (associated with a specific diagnosis that is being evaluated, monitored, or treated as if it exists) are acceptable and can be coded in the inpatient setting, when documented at the
time of discharge.
Thank you,
Carolyne Sheehan RN, BSN
CDI Specialist
Available via Tow text
Please use your independent medical judgment in providing your response.
--- NOTE | 2025-03-23 14:03 | W.DCSUMMARY ---
Discharge Summary
Discharge Data
Date of Admission: 03/17/25
Date of Discharge: 03/23/25
-
Pending Results: No
Hospital Course
Primary diagnosis:
Acute comminuted right hip fracture status post, IM nail fixation 03/21
Secondary diagnosis:
Alzheimer's dementia
Bal's esophagus
Anxiety/depression
Hospital course:
79-year-old lady with severe dementia currently in the memory care unit came in with a right hip pain. She had unwitnessed fall. X-ray showed right hip intertrochanteric fracture for which she had gamma nail fixation by Dr. Desir. Postop she had
behavioral issues for a day but not needing any medication. She was was more noncooperative to care. She has chronic anemia with hemoglobin around 10. Postoperatively hemoglobin dropped to 7 which is stable. Aim is to keep it more than 7. I
will continue to follow that next week. Prescribed a daily iron pill.
I would avoid narcotics in her. She did not need any narcotic pain regimen yesterday or today.
Today patient was more cooperative. Participated with speech therapy and cleared for pur�ed diet. Discussed with son about the dietary modification. Speech therapy order placed for follow-up in rehab. She is alert but not oriented. No
meaningful conversation with her today. Afebrile. Blood pressure 148/61. Chest was clear.
[place] medically stable for discharge to rehab today.
Consultants on board:
Orthopedics-Josh Mahmood
Discharge Plan
-
Patient Disposition: Usp/SNF
Discharge Diagnosis/Procedures: Right hip intertrochanteric fracture status post gamma nail fixation
Diet: Other diet
Additional Diets: PUREED
Activity: As tolerated
Driving Restrictions: No driving
Bathing Restrictions: None
Blood Work: CBC blood work in a week
Other Services: PT, OT and ST
Activity Restrictions/Additional Instructions:
Lovenox for DVT ppx
Pain control, avoid narcs
Dressing to remain 7-10 days
Tobi out 2 weeks (SNF or office)
If tobi out at SNF outpatient Ortho follow-up 4 weeks
Referrals:
Josh Desir MD [Active, Orthopedics] - in one month
UNKNOWN - PT NOT,INTERVIEWE [Family Provider]
Prescriptions:
New
docusate sodium 100 mg Capsule
100 mg PO BID Qty: 1 0RF
enoxaparin 30 mg/0.3 mL Syringe
30 mg SC QPM Qty: 3 0RF
Rx Instructions:
4 weeks for DVT prophylaxis
Continued
acetaminophen 325 mg Tablet
650 mg PO Q6HPRN PRN (Reason: mild pain/fever)
omeprazole 20 mg Tablet,Delayed Release (Dr/Ec)
20 mg PO BID
donepezil 5 mg Tablet
5 mg PO HS
sertraline 50 mg Tablet
125 mg PO DAILY
magnesium oxide 400 mg magnesium Tablet
400 mg PO DAILY
lorazepam 0.5 mg Tablet
0.5 mg PO Q6HPRN PRN (Reason: anxiety)
buspirone 5 mg Tablet
7.5 mg PO BID
Discontinued
sulfamethoxazole-trimethoprim [Bactrim] 400-80 mg Tablet
1 tab PO BID
Rx Instructions:
for 5 days starting 03/12/25
Discharge Orders:
Discharge Patient (As Directed); Ordered 03/23/25
Ordered By: Cricket Avalos
Discharge Date and Time
Print Language: CAPE VERDEAN
--- NOTE | 2025-03-23 14:03 | CM ---
Addendum entered by Aaliyah [facility] 03/23/25 14:38:
correction- [id number]
[facility]end[facility] 03/23/25 14:37:
1530 transport, SNF and son/[place] aware
Original Note:
CM reviewed pt with attending- ready for dc
Pt with ST eval today with recommendations
Pt denied at [facility], and
Bed offered at [facility]/admissions Niecy
Call with son/[place] who is in agreement with plan
IMM verbally reviewed over phone- copy placed with dc paperwork per his request
Medical necessity completed and transport formon chart
Updated ST eval sent to [facility] via [facility]
Discharge Disposition- [facility] via BLS
Phone- [phone] Fax- [phone]
[2025-03-23] MEDS: ROXICODONE 5 MG PO (14:08)
[2025-03-23] MEDS: KCL ELIXIR 40 MEQ TUBE (14:13)
[2025-03-23 15:28] VITALS: BP 155/85
== END 2025-03-23 17:29 | DRG 481 ==
LOC: 2 SOUTH 23:22
PROVIDERS: Internal Medicine; Nurse Practitioner; Nurse Practitioner Family; Orthopaedic Surgery; Physician Assistant Surgical; ADMITTING PHYSICIAN Hospitalist; ATTENDING PHYSICIAN Internal Medicine; CONSULT PHYSICIAN Orthopaedic Surgery; EMERGENCY PHYSICIAN Emergency Medicine
PROC: 0QH636Z Insertion of Intramedullary Internal Fixation Device into Right Upper Femur, Percutaneous Approach (ICD-10-PCS; 2025-03-20)
DX: S72.141A Displaced intertrochanteric fracture of right femur, initial encounter for closed fracture (principal); D62 Acute posthemorrhagic anemia; R64 Cachexia; Z68.1 Body mass index [BMI] 19.9 or less, adult; J98.11 Atelectasis; N39.0 Urinary tract infection, site not specified; K21.9 Gastro-esophageal reflux disease without esophagitis; F32.A Depression, unspecified; F41.9 Anxiety disorder, unspecified; G30.9 Alzheimer's disease, unspecified; F02.80 Dementia in other diseases classified elsewhere, unspecified severity, without behavioral disturbance, psychotic disturbance, mood disturbance, and anxiety; I08.3 Combined rheumatic disorders of mitral, aortic and tricuspid valves; K22.70 Barrett's esophagus without dysplasia; M19.90 Unspecified osteoarthritis, unspecified site; D64.9 Anemia, unspecified; W19.XXXA Unspecified fall, initial encounter; Z11.52 Encounter for screening for COVID-19; Z79.899 Other long term (current) drug therapy; Z85.828 Personal history of other malignant neoplasm of skin
CPT/HCPCS: 70450; 71045; 71260; 73502; 73503; 74018; 74177; 76000; 80048; 80053; 81003; 81015; 84484; 85025; 85027; 86850; 86900; 86901; 87040; 87070; 87086; 87502; 87811; 92526; 92610; 93005; 93306; 96374; 97163; 97167; 97530; 99285; Q9967

== ENCOUNTER 2025-03-24 10:20 | Emergency (ER) | payer MEDICARE, SELFPAY ==
[2025-03-24 10:37] VITALS: BP 138/93
--- NOTE | 2025-03-24 11:49 | ED.GENMED ---
History of Present Illness
General
Chief Complaint: Failure to Thrive
Source: patient
Exam Limitations: none
Time Seen by Provider: 03/24/25 11:10
Nursing documentation reviewed up to this point in time: agreed with
History of Present Illness
History of Present Illness:
Patient is a 79-year-old female with history dementia, aphasia who presents to emergency department from rehab facility with concerns of change in mental status. Patient has history of severe Alzheimer's and significant aphasia and is unable to
contribute to history. She is 4 days postop from right hip nail fixation following hip fracture.
I did call and personally speak to patient's son, Lc, who states that she was recently discharged from the hospital yesterday and sent to [facility] for rehab following a right hip fracture. Apparently�patient was screaming frequently throughout
the night and there became some concern that there was an injury to her hip during transport. The facility just received her yesterday therefore unaware of her baseline and were concerned there may also be a change in mental status.
There has been no recent fever. The incisional site appears to be healing well without any significant evidence of infection.
Patient son states that since her surgery she seems to be declining. She has been refusing to take many medications. However�she is aphasic at baseline and he does not believe there has been any true change in mental status.
Past History
Past History
ED Past Medical History: Cancer (Skin CA), GERD and Other (UTI, Expressive Aphasia, Altzheimer's )
ED Past Surgical History: , Gynecological (Right Oophorectomy) and Orthopedic (Right foot surgery)
Social History
Tobacco: Non-smoker
Alcohol: None
Drug: None
Personal:
Living: alone
Review of Systems
Review of Systems
Allergies reviewed?: Yes
All Other Systems: ROS reviewed and negative except as documented in HPI and ROS
Phy Exam
Physical Exam
Physical Exam:
Vitals: Patient's vital signs are stable on arrival. Afebrile
General: Patient is very frail. Chronically ill-appearing
Skin: Warm and dry, no rashes or lesions. Well healing incision to right hip and right proximal lateral thigh. [place] in place. No surrounding erythema, red streaking, or purulent drainage
Head: Normocephalic, atraumatic
Eyes: Sclera nonicteric. Orbits appear normal.
Throat: Dry mucous membranes. Protecting airway
Neck: Normal ROM, no cervical spine tenderness, no meningismus
Cardiac: Regular rate and rhythm, no murmurs.
Pulm: Normal respiratory effort, no wheezes, rales, rhonchi heard on exam
Abdomen: Abdomen soft and nontender.
Extremities: Surgical incisions of right lower extremity as above. 2+ palpable right DP and PT pulse. No evidence of cyanosis or edema bilaterally.
Neuro: Alert. Aphasic. Moving all extremities.
Psychiatric: Normal affect.
Course
Orders/Labs/Results
Orders:
Orders
03/24/25 11:18
0.9% Sodium Chloride 500 ml [Nss] 500 ml IV BOLUS
03/24/25 11:20
CT Head W/o Iv Contrast Urgent
Comment:
Reason For Exam: AMS
03/24/25 11:33
Hip, Right 2-3 Views [CR Hip - RT w/wo Pel 2-3 Vw*] Urgent
Comment:
Reason For Exam: Recent hip sx; pain
Include a pelvis x-ray?: Yes
03/24/25 11:45
Midazolam HCl [Versed] 2 mg IV NOW STA
03/24/25 11:54
COVID-19 Antigen Urgent
Source: Nasal Swab
Urinalysis Reflex To Culture Urgent
Date Specimen was Collected: 03/24/25
Time Specimen was Collected: 11:37
Urine Microscopic Reflex Cult Urgent
Influenza A+B Rapid Molecular Urgent
ROSEANNA Source: Nasal Swab
Specimen Description:
03/24/25 12:57
Complete Blood Count/With Diff Urgent
Comprehensive Metabolic Panel Urgent
03/24/25 12:58
Midazolam HCl [Versed] 2 mg IV NOW STA
03/24/25 15:39
0.9% Sodium Chloride 500 ml [Nss] 500 ml IV BOLUS
03/24/25 15:43
Potassium Chloride 10% Elixir [KCl Elixir] 40 meq PO NOW STA
Abnormal Lab Results
03/24/25 03/24/25
11:54 12:57
RBC 3.24 L 10^6/uL
(4.20-5.40)
Hgb 8.9 L D g/dL
(12.0-16.0)
Hct 28.7 L %
(37.0-47.0)
MCHC 31.0 L g/dL
(33.0-37.0)
Abs Immat Gran (auto) 0.5 H 10^3/uL
(0-0.05)
Absolute Neuts (auto) 7.9 H 10^3/uL
(1.4-6.5)
Absolute Lymphs (auto) 0.5 L 10^3/uL
(1.2-3.4)
Absolute Monos (auto) 0.8 H 10^3/uL
(0.1-0.6)
Immature Gran % 5.1 H %
(0-0.5)
Neutrophils % 81.5 H %
(42.2-75.2)
Lymphocytes % 4.6 L %
(20.5-51.1)
Potassium 3.1 L mmol/L
(3.5-5.1)
Creatinine 0.3 L mg/dL
(0.6-1.0)
Glucose 103 H mg/dl
(70-99)
Total Bilirubin 1.8 H mg/dl
(0.2-1.3)
AST 43 H U/L
(14-36)
Albumin 3.4 L g/dl
(3.5-5.0)
Urine Ketones 3+ A
(Negative)
Ur Occult Blood Reflex 2+ A
(Negative)
Urine Bacteria (Reflex) Few A
(Negative)
Urine Albumin (Reflex) 2+ A
(Neg - Trace)
03/24/25 12:57
03/24/25 12:57
Vital Signs
Initial and Last Documented VS:
Initial Vital Signs
Temp Pulse Resp Pulse Ox
98.0 F 89 15 93
03/24/25 10:33 03/24/25 10:33 03/24/25 10:33 03/24/25 10:33
Last Documented Vital Signs
Temp Pulse Resp BP Pulse Ox
98.0 F 60 18 137/103 93
03/24/25 10:33 03/24/25 18:29 03/24/25 18:29 03/24/25 16:00 03/24/25 18:29
MDM/Problems Addressed
Differential Diagnosis Includes:
Not limited to: Progression of disease, acute dehydration, failure to thrive, viral illness, acute intracranial abnormality, etc.
MDM/Problems Addressed:
79-year-old chronically ill female with history of Alzheimer's and aphasia, 4 days postop from right hip nail fixation secondary to hip fracture presenting from rehab facility with concerns of change in mental status. Patient has significant
Alzheimer's and aphasia and unable to contribute. After discussion with patient's son�concern that patient was screaming throughout the night and may have reinjured her right hip during transport however no known trauma. No infectious symptoms.
Vital signs stable. She is afebrile. Physical exam as above. Cardio/pulmonary assessment unremarkable. Abdomen soft and nontender. No evidence of infection of incisional sites of right lower extremity. She is alert. Neuro exam very limited as
she would does not follow commands. She is moving all extremities.
Differential as above. Possibly progression of disease, acute dehydration, viral illness. No evidence of postoperative infection. Will check basic labs, UA, viral studies. Will obtain head CT and x-ray of right hip.
Update: Labs reveal anemia. Hemoglobin of 8.9 This is trending up after discharge from hospital yesterday. Chemistry reveals mild hypokalemia. She does have an elevation in her bilirubin and mild elevation in AST�this may be secondary to
dehydration. Urine does not appear infected. Head CT without acute findings. X-ray of right hip shows hardware in place without any evidence of acute fracture or dislocation.
Workup in ED negative for acute process. She did receive 1 L of IV fluids. Attempted to give patient oral potassium however she did not tolerate. I did call and discussed with patients SonLc on the phone. Discussed all lab work and imaging.
He feels that this mental status is her baseline. He feels comfortable with discharge back to [facility] for rehab. Advised [facility] on discharge paperwork to keep patient well-hydrated and follow high potassium diet. Advise repeat lab work
and strict return precautions. Patient stable for discharge.
Chronic conditions affecting care:
Alzheimer's, aphasia
Acute Exacerbation and/or Progression of Chronic Illness:
N/A
*Radiology
Radiology exam reviewed: preliminary read by ED provider and radiology read reviewed
*Pulse Oximetry
SaO2: 93
Oxygen Mode of Delivery: Room air
Patient hypoxic: no
*EKG
Interpreted by ED Provider?: NA
*Salesperson [employer] Interpretation
Rate: Salesperson [employer]- N/A
*Critical Care Note
Total Time (30-74mins, 75-104mins- exclusive of procedures): Not Applicable
Data Reviewed
Review of Other/Old Records Reveals: Operative Reports (Postop note from 03/20/2025)
ED Attending Note
-
Portions of this chart may have been created with voice recognition software.� Occasional wrong word or��sound alike� substitutions may have occurred due to the inherent limitations of voice recognition software.
Discharge Plan
Departure
Patient Disposition: Home (Routine Discharge)
Date of Disposition: 03/24/25
Time of Disposition: 15:57
Patient with high blood pressure during this ER visit?: Yes
Discharge Problem:
Dehydration, Change in mental status, Hypokalemia
Instructions: Hypokalemia, High-potassium diet, Dehydration in adults - ED (DC)
Prescriptions:
No Action
acetaminophen 325 mg Tablet
650 mg PO Q6HPRN PRN (Reason: mild pain/fever)
omeprazole 20 mg Tablet,Delayed Release (Dr/Ec)
20 mg PO BID
donepezil 5 mg Tablet
5 mg PO HS
sertraline 50 mg Tablet
125 mg PO DAILY
magnesium oxide 400 mg magnesium Tablet
400 mg PO DAILY
lorazepam 0.5 mg Tablet
0.5 mg PO Q6HPRN PRN (Reason: anxiety)
buspirone 5 mg Tablet
7.5 mg PO BID
docusate sodium 100 mg Capsule
100 mg PO BID Qty: 1 0RF
enoxaparin 30 mg/0.3 mL Syringe
30 mg SC QPM Qty: 3 0RF
Rx Instructions:
4 weeks for DVT prophylaxis
ferrous sulfate 325 mg (65 mg iron) tablet
325 mg PO DAILY Qty: 1 0RF
magnesium hydroxide [Milk of Magnesia] 400 mg/5 mL Suspension
2,400 mg PO DAILYPRN PRN (Reason: constipation)
Referrals:
Francis Clay MD [Family Provider]
Activity Restrictions/Additional Instructions:
RETURN TO THE EMERGENCY DEPARTMENT IF PATIENT DISPLAYS ANY CHANGE IN MENTAL STATUS, SIGNS OF SEVERE DEHYDRATION OR INABILITY TO EAT/DRINK, ANY SIGNS OF INFECTION INCLUDING FEVER, REDNESS, PURULENT DRAINAGE, STREAKING AWAY FROM WOUND, SIGNIFICANT
SWELLING OR PAIN IN RIGHT LOWER EXTREMITY, OR ANY OTHER CONCERNS
- Patient was found to be anemic today in the emergency department. The hemoglobin today was 8.9 which has increased from 7.0. She also was found to have a low potassium level of 3.1. Please keep patient well-hydrated and have her follow a high
potassium diet. She received a small amount of oral potassium today in the emergency department. Please have this lab rechecked with primary care to ensure trending up.
- There was no evidence of urinary tract infection today. The x-ray showed that the hardware in the right hip remains in place. The head CT showed no acute abnormalities.
- Please follow-up with orthopedics and patient's primary care provider as directed. She should continue to take all medications as prescribed.
Monitor her symptoms closely and return to the emergency department with any acute worsening/new symptoms or any other concerns
Interventions
Interventions:
*Risk Screen - Suicide Last Done: 03/24/25 10:33
*General Assessment Last Done: 03/24/25 10:33
*Neglect/Abuse Screening Last Done: 03/24/25 10:33
*ED- Fall Risk Assessment Last Done: 03/24/25 15:55
*ED COVID-19 Vaccine History Last Done: 03/24/25 10:33
*ED Influenza Vaccine History Last Done: 03/24/25 10:33
*Nursing Disposition Last Done: 03/24/25 18:30
Discharge Date and Time
Discharge Date/Time: 03/24/25 18:30
Print Language: LITHUANIAN
[2025-03-24] MEDS: NSS 500 IV ×2 (11:56→15:48)
[2025-03-24 12:02] VITALS: BP 149/75
[2025-03-24 12:15] LABS: Urine Character Clear (Clear)
[2025-03-24 12:40] LABS: COVID-19 Antigen Negative (Negative)
[2025-03-24 12:55] LABS: Urine Squamous Cell >30 /LPF (Few)
[2025-03-24 12:57] LABS: Urine Red Blood Cell 0-2 /HPF (0-2)
[2025-03-24 13:00] VITALS: BP 105/78
[2025-03-24] MEDS: VERSED 2 MG IV (13:14)
[2025-03-24 13:27] LABS: Hematocrit 28.7 % (37.0-47.0); Hemoglobin 8.9 g/dL (12.0-16.0); Mean Corp Hgb Conc. 31.0 g/dL (33.0-37.0); Mean Corpuscular Volume 88.6 fL (81.0-99.0); Platelet Count 383 10^3/uL (130-400); Red Cell Dist. Width 14.5 % (11.5-14.5)
[2025-03-24 13:28] LABS: ALT (SGPT) 22 U/L (0-35); AST (SGOT) 43 U/L (14-36); Albumin 3.4 g/dl (3.5-5.0); Alkaline Phosphatase 62 U/L (38-126); Blood Urea Nitrogen 8 mg/dl (7-17); Calcium 8.4 mg/dl (8.4-10.2); Carbon Dioxide 27 mmol/L (22-30); Chloride 104 mmol/L (98-107); Glucose 103 mg/dl (70-99); Potassium 3.1 mmol/L (3.5-5.1); Sodium 138 mmol/L (135-145); Total Protein 6.7 g/dl (6.3-8.2); eGFR > 60.00
[2025-03-24 14:25] VITALS: BP 138/75
[2025-03-24 14:30] LABS: Nucleated Red Blood Cells % 0.2 %
[2025-03-24 16:00] VITALS: BP 137/103
== END 2025-03-24 18:30 | disposition home or self-care (01) ==
LOC: EMR 10:20
PROVIDERS: Physician Assistant; EMERGENCY PHYSICIAN Emergency Medicine; FAMILY PHYSICIAN Family Medicine
DX: E86.0 Dehydration (principal); R41.82 Altered mental status, unspecified; E87.6 Hypokalemia; D64.9 Anemia, unspecified; E80.7 Disorder of bilirubin metabolism, unspecified; R74.01 Elevation of levels of liver transaminase levels; G30.9 Alzheimer's disease, unspecified; F02.C0 Dementia in other diseases classified elsewhere, severe, without behavioral disturbance, psychotic disturbance, mood disturbance, and anxiety; K21.9 Gastro-esophageal reflux disease without esophagitis; Z85.828 Personal history of other malignant neoplasm of skin
CPT/HCPCS: 99284; 96374; 96361 ×2; 70450; 73502; 80053; 81003; 81015; 85025; 87502; 87811

== ENCOUNTER 2025-03-29 07:28 | Inpatient (IN) | payer MEDICARE, SELFPAY ==
[2025-03-25] VITALS (9 sets, daily range): BP systolic 96–156; BP diastolic 64–91
--- NOTE | 2025-03-25 11:52 | CM ---
MARQUIS from [facility], they received patient from [facility] on 03/23/25 s/p fx hip, Patient resides at [facility].
Since being at the halfway facility patient has been refusing care, vital signs, and spitting out medications.
Per Niecy from [facility] she spoke with patients son, this is not her baseline. They will be unable to accept back unless patient is calmer and agreeable to services.
--- NOTE | 2025-03-25 12:05 | ED.GENMED ---
History of Present Illness
<Gary Steinberg PA-C - Last Filed: 03/26/25 15:12>
General
Chief Complaint: Breathing Problem
Time Seen by Provider: 03/25/25 10:17
History of Present Illness
History of Present Illness:
79-year-old female with history of dementia presents emergency department due to apparent bradycardia and hypoxia at her nursing facility this morning. She was seen in this emergency department yesterday for complaint of agitation and mental status
change at which time broad medical workup was unremarkable. She was recently discharged from this hospital after gamma nail fixation of a right hip fracture. She can provide essentially no history due to dementia but denies obvious complaints at
this time
Past History
<Gary Steinberg PA-C - Last Filed: 03/26/25 15:12>
Past History
ED Past Medical History: Cancer (Skin CA), GERD and Other (UTI, Expressive Aphasia, Altzheimer's )
ED Past Surgical History: , Gynecological (Right Oophorectomy) and Orthopedic (Right foot surgery)
Social History
Tobacco: Non-smoker
Alcohol: None
Drug: None
Personal:
Living: alone
Review of Systems
<Gary Steinberg PA-C - Last Filed: 03/26/25 15:12>
Review of Systems
Allergies reviewed?: Yes
All Other Systems: ROS reviewed and negative except as documented in HPI and ROS
Phy Exam
<Gary Steinberg PA-C - Last Filed: 03/26/25 15:12>
Physical Exam
Physical Exam:
GEN: Well appearing, NAD, WDWN
HEENT: Oral mucosa moist, no scleral icterus
Cardiac: Regular rate
Lung: No respiratory distress, no tachypnea
MSK: Right hip incision clean dry and intact with no dehiscence
Skin: Good color, no pallor or jaundice, no rashes
Neuro: Alert to baseline, minimally interactive, not cooperative on exam however not agitated
Psych: Calm, cooperative
Scores
<Kimberly Miranda NP - Last Filed: 03/25/25 22:31>
Heart Failure Risk
Heart Failure Risk Score: Not Applicable
Course
<Gary Steinberg PA-C - Last Filed: 03/26/25 15:12>
Orders/Labs/Results
Orders:
Orders
03/25/25 10:26
CR Chest Portable - 1 View Urgent
Comment:
Reason For Exam: hypoxia?
Reason Study Needs to be Portable: Unable to Transport
03/25/25 12:38
Speech Therapy Eval & Treat Urgent
03/25/25 14:21
Lorazepam [Ativan] 0.5 mg PO Q6HPRN PRN
03/25/25 14:23
DX Deep Vein Thrombosis Video Routine
03/25/25 Dinner
IDDSI 4 - Pureed
At Your Request: Non-Participating
Sertraline HCl [Zoloft] 125 mg PO DAILY
03/25/25 17:33
Admit/Transfer Patient As Directed
Co-Sign Provider:
Level of Care: Observation services
Assign to:: Medical/Surgical
Physician / Group: lala pimentel
Diagnosis: acute agitation, hx alzheimers
03/25/25 17:38
PRN Pain Medication Management As Directed
May give lesser potent ordered pain med per pt: Yes
preference::
Protocol:: Medication orders for pain may be administered in a
manner that supports deferring to patient preference
when the pt is:
- Requesting an ordered lesser potent pain medication.
Least to most potent pain medications are defined
as: acetaminophen < NSAID < tramadol < opioids
(morphine, oxycodone, hydromorphone).
- Requesting a lesser dose of the same medication IF
ORDERED.
- Requesting a less intrusive route of administration
if both routes are prescribed by the provider (PO <
IV).
03/25/25 17:54
EKG [Electrocardiogram (*1)] Urgent
Reason for Study: QTc Monitoring
Haloperidol Lactate [Haldol] 1 mg IM Q4HPRN PRN
03/25/25 18:00
Enoxaparin Sodium [Lovenox] 30 mg SC QPM
03/25/25 20:00
Buspirone [Buspar] 7.5 mg PO BID
03/25/25 20:05
Acetaminophen [Tylenol] 650 mg PO Q4HPRN PRN
Buspirone [Buspar] 7.5 mg PO BID
Docusate Sodium [Colace] 100 mg PO BID
Lorazepam [Ativan] 0.5 mg PO Q6HPRN PRN anxiety
03/25/25 20:05
Activity As Directed
Activity Level: With Assistance
Nursing to Place Non Medication Order As Directed
Physician Order: 1:1 observation due 2 agitation, hallucinations, confusion attempting get out of bed
Above order entered?: Yes
Vital Signs As Directed
Frequency: Per unit guidelines
Pt Eval And Treat Routine
Activity Level: With Assistance
DX Deep Vein Thrombosis Video Routine
03/25/25 22:00
Donepezil [Aricept] 5 mg PO HS
Donepezil [Aricept] 5 mg PO HS
03/26/25 05:45
Complete Blood Count/With Diff IN AM
Comprehensive Metabolic Panel IN AM
03/26/25 08:00
Ferrous Sulfate [Feosol] 325 mg PO DAILY
Magnesium Oxide 400 mg PO DAILY
Pantoprazole [Protonix] 40 mg PO BID
Sertraline HCl [Zoloft] 125 mg PO DAILY
03/26/25 18:00
Enoxaparin Sodium [Lovenox] 30 mg SC QPM
Vital Signs
Initial and Last Documented VS:
Initial Vital Signs
Temp Pulse Resp BP Pulse Ox
97.7 F 96 16 147/69 99
03/25/25 10:20 03/25/25 10:20 03/25/25 10:20 03/25/25 10:20 03/25/25 10:20
Last Documented Vital Signs
Temp Pulse Resp BP Pulse Ox
98.0 F 100 17 144/76 97
03/26/25 07:00 03/26/25 07:00 03/26/25 07:00 03/26/25 07:00 03/26/25 07:00
<Kimberly Miranda MOLD CLOSER - Last Filed: 03/25/25 22:31>
Orders/Labs/Results
Orders:
Orders
03/25/25 10:26
CR Chest Portable - 1 View Urgent
Comment:
Reason For Exam: hypoxia?
Reason Study Needs to be Portable: Unable to Transport
03/25/25 12:38
Speech Therapy Eval & Treat Urgent
03/25/25 14:21
Lorazepam [Ativan] 0.5 mg PO Q6HPRN PRN
03/25/25 14:23
DX Deep Vein Thrombosis Video Routine
03/25/25 Dinner
IDDSI 4 - Pureed
At Your Request: Non-Participating
Sertraline HCl [Zoloft] 125 mg PO DAILY
03/25/25 17:33
Admit/Transfer Patient As Directed
Co-Sign Provider:
Level of Care: Observation services
Assign to:: Medical/Surgical
Physician / Group: lala pimentel
Diagnosis: acute agitation, hx alzheimers
03/25/25 17:38
PRN Pain Medication Management As Directed
May give lesser potent ordered pain med per pt: Yes
preference::
Protocol:: Medication orders for pain may be administered in a
manner that supports deferring to patient preference
when the pt is:
- Requesting an ordered lesser potent pain medication.
Least to most potent pain medications are defined
as: acetaminophen < NSAID < tramadol < opioids
(morphine, oxycodone, hydromorphone).
- Requesting a lesser dose of the same medication IF
ORDERED.
- Requesting a less intrusive route of administration
if both routes are prescribed by the provider (PO <
IV).
03/25/25 17:54
EKG [Electrocardiogram (*1)] Urgent
Reason for Study: QTc Monitoring
Haloperidol Lactate [Haldol] 1 mg IM Q4HPRN PRN
03/25/25 18:00
Enoxaparin Sodium [Lovenox] 30 mg SC QPM
03/25/25 20:00
Buspirone [Buspar] 7.5 mg PO BID
03/25/25 20:05
Acetaminophen [Tylenol] 650 mg PO Q4HPRN PRN
Buspirone [Buspar] 7.5 mg PO BID
Docusate Sodium [Colace] 100 mg PO BID
Lorazepam [Ativan] 0.5 mg PO Q6HPRN PRN anxiety
03/25/25 20:05
Activity As Directed
Activity Level: With Assistance
Nursing to Place Non Medication Order As Directed
Physician Order: 1:1 observation due 2 agitation, hallucinations, confusion attempting get out of bed
Above order entered?: Yes
Vital Signs As Directed
Frequency: Per unit guidelines
Pt Eval And Treat Routine
Activity Level: With Assistance
DX Deep Vein Thrombosis Video Routine
03/25/25 22:00
Donepezil [Aricept] 5 mg PO HS
Donepezil [Aricept] 5 mg PO HS
03/26/25 05:45
Complete Blood Count/With Diff IN AM
Comprehensive Metabolic Panel IN AM
03/26/25 08:00
Ferrous Sulfate [Feosol] 325 mg PO DAILY
Magnesium Oxide 400 mg PO DAILY
Pantoprazole [Protonix] 40 mg PO BID
Sertraline HCl [Zoloft] 125 mg PO DAILY
03/26/25 18:00
Enoxaparin Sodium [Lovenox] 30 mg SC QPM
Vital Signs
Initial and Last Documented VS:
Initial Vital Signs
Temp Pulse Resp BP Pulse Ox
97.7 F 96 16 147/69 99
03/25/25 10:20 03/25/25 10:20 03/25/25 10:20 03/25/25 10:20 03/25/25 10:20
Last Documented Vital Signs
Temp Pulse Resp BP Pulse Ox
98.0 F 100 17 144/76 97
03/26/25 07:00 03/26/25 07:00 03/26/25 07:00 03/26/25 07:00 03/26/25 07:00
<Gary Steinberg PA-C - Last Filed: 03/26/25 15:12>
*Pulse Oximetry
SaO2: 97
Nasal Cannula flow liters per minute: 99
Oxygen Mode of Delivery: Room air
<Kimberly Miranda NP - Last Filed: 03/25/25 22:31>
*Pulse Oximetry
Patient hypoxic: no
*Critical Care Note
Total Time (30-74mins, 75-104mins- exclusive of procedures): Not Applicable
<Gary Steinberg PA-C - Last Filed: 03/26/25 15:12>
Update Note
Update Note:
Was performed prior to discharge by case management the patient's nursing facility is refusing to take her back due to agitation and her current behaviors. CM will work on alternative placement
1440: Informed by CM that pt is being reviewed by [facility]. Routine meds ordered
<Kimberly Miranda NP - Last Filed: 03/25/25 22:31>
Update Note
Update Note:
Was performed prior to discharge by case management the patient's nursing facility is refusing to take her back due to agitation and her current behaviors. CM will work on alternative placement
1440: Informed by CM that pt is being reviewed by [facility]. Routine meds ordered
Notified by case management that [facility] can not accept tonight, possibly able to accept tomorrow. Will require admission pending bed placement.
ED Attending Note
<Gary Steinberg PA-C - Last Filed: 03/26/25 15:12>
-
Portions of this chart may have been created with voice recognition software.� Occasional wrong word or��sound alike� substitutions may have occurred due to the inherent limitations of voice recognition software.
Discharge Plan
Departure
Patient Disposition: Admit
Date of Disposition: 03/25/25
Time of Disposition: 15:30
Presentation/result/management discussed w/ accepting MD/DO: Hospitalist
Patient with high blood pressure during this ER visit?: No
Discharge Problem:
Dementia
Interventions
Interventions:
*Risk Screen - Suicide Last Done: 03/25/25 10:28
*General Assessment Last Done: 03/25/25 10:28
*Neglect/Abuse Screening Last Done: 03/25/25 10:28
*ED- Fall Risk Assessment Last Done: 03/25/25 10:28
*ED COVID-19 Vaccine History Last Done: 03/25/25 10:28
*ED Influenza Vaccine History Last Done: 03/25/25 10:28
*Nursing Disposition Last Done: 03/25/25 19:59
ED- Cardiac Assessment Last Done: 03/25/25 10:24
ED- Pulmonary Assessment Last Done: 03/25/25 10:24
Discharge Date and Time
Discharge Date/Time: 03/25/25 19:59
--- NOTE | 2025-03-25 12:58 | CM ---
Addendum entered by China Barnett 03/25/25 16:55:
[facility] to come tomorrow am to assess patient, RADHA, nurse made aware. Shane to call tomorrow with time of assessment and to confirm admission. CM will continue to follow for discharge planning needs.
Addendum entered by China Barnett 03/25/25 16:04:
Awaiting response from [facility]. [address] [place] [address] phone [phone], Fax [email or web address]. All clinical information sent via all scripts to [facility]. Nursing is reviewing forms per
Shane at [facility]. Phone number for ED was provided to set up transfer when decision made. CM attempted to reach out to patient son, VM is full at this time. CM will continue to follow for discharge planning needs.
Plan; transfer to [facility].
Original Note:
Patient seen at bedside in ED with son present. Patient calm. Patient has been at [facility] and the facility is now stating that they are not able to work with patient at this time. CM spoke with son and he requested CM call to [facility] and per
Liaison they do not have available bed at this time. Son also asked CM to reach out to [facility] CM will clarify which [facility] and send referral. CM will continue to follow for discharge planning needs.
Plan; SNF ; not able to return to prior SNF per facility
--- NOTE | 2025-03-25 15:28 | PTOTSP ---
Speech Therapy Swallowing Assessment
Pt with chronic risk factor for dysphagia of dementia and is at increased risk of aspiration given current cognitive status. Patient tolerated oral trials of puree and thin liquid this day without overt signs of aspiration. Patient with recent
history of food/liquid avoidance and limited intake, increasing risk that nutritional needs will not be met via oral route. However, feeding tube is contraindicated in this pt population.
Recommend:
1. Puree and thin liquids by cup or straw
2. Medications crushed in puree
3. Aspiration precautions
4. 1:1 assistance and supervision with intake
5. KIER DRIER follow briefly to ensure diet tolerance/need for further modifications, and family education as indicated.
[2025-03-25] MEDS: ZOLOFT 125 MG PO (16:18)
--- NOTE | 2025-03-25 17:17 | HPS.HSE ---
Addendum entered and electronically signed by Emmy Jorge MD 03/25/25 19:16:
This is an addendum to the H&P written by Ericka Ellison on 03/25/2025. �Patient seen and examined independently with DBA.
79-year-old female past medical history of Alzheimer's, anxiety/depression, osteoarthritis, Bal's esophagus, presenting from [facility] for agitation. �She was seen in the emergency room yesterday for agitation and she was discharged back.
�Urinalysis negative for UTI yesterday.
She had gamma nail surgery for her right femur on 03/21 and having agitation since 02/23.
Vital signs show blood pressure as low as 96/85.
Labs show hemoglobin 8.9 close to baseline. �Potassium 3.1.
Chest x-ray showed no acute abnormality.
Patient given Ativan.
Patient with acute delirium/agitation likely from anesthesia from recent surgery/possible pain superimposed on advanced Alzheimer's dementia. �Patient pulling out IVs. �Intramuscular Haldol. �Case management for placement. �Potassium repletion.
Original Note:
Family Physician
-
Family Physician: Emmett Mota
Chief Complaint
-
Agitation, confusion, screaming
History of Present Illness
79-year-old female from rehab facility [facility] with reports of agitation, seeing her mom grabbing at zafar screaming. The Patient arrived to the ER with heart rate of 96 bpm and oxygen percent 100% on room air. She was seen yesterday in the ER
for complaints of agitation with increased mental status change according to chart they spoke with patient's son [place] who states staff told him that she was screaming at nighttime he did report concern that patient has been declining since her
surgery refusing to take any medications. He also states that beginning of feb she became agitated, confused, wandering and was told she had a UTI was started on abx . I reviewed her urine culture which was contaminate then 03/18 urine culture was
neg. He also states she develop a fever 1 week ago but culture was negative along with covid and Flu She was living at prior [facility] before this recent fall.. She had recent admission 03/17 - 03/23/2025 for fall with right hip fracture status
post IM nail fixation on 03/21/2025 along with postop anemia started on oral iron. she has past medical hx Alzheimer's disease,depression/anxiety osteoarthritis, Bal's esophagus
Medical History
Past Medical History
Past Medical History: Reports Other
Additional Past Medical History:
Alzheimer's disease
depression/anxiety
osteoarthritis
Bal's esophagus
Past Surgical History: Reports Other
Additional Past Surgical History:
Right Oophorectomy
Right foot surgery
Social History
Tobacco: Non-smoker
Alcohol: None
Drug: None
Living: Assisted Living
Family History
Family History: Not pertinent
Allergies / Home Medications
Allergies reflects when Allergies were last updated in [employer].
Home Medications with original date entered in [employer]
Allergy/Medication List:
Allergies
Allergy/AdvReac Type Severity Reaction Status Date / Time
erythromycin base Allergy Rash Verified 03/17/25 20:50
levofloxacin (From Levaquin) Allergy Rash Verified 03/17/25 20:50
Penicillins Allergy Unknown Verified 03/17/25 20:50
Home Medications
acetaminophen 325 mg tablet 650 mg PO Q6HPRN PRN MILD pain/fever 05/03/22
omeprazole 20 mg tablet,delayed release 20 mg PO BID Gastrointestinal issue 05/03/22
donepezil 5 mg tablet 5 mg PO HS 12/25/24
magnesium oxide 400 mg PO DAILY 12/25/24
sertraline 50 mg tablet 125 mg PO DAILY 12/25/24
lorazepam 0.5 mg tablet 0.5 mg PO Q6HPRN PRN anxiety 01/23/25
buspirone 5 mg tablet 7.5 mg PO BID 03/17/25
sulfamethoxazole 400 mg-trimethoprim 80 mg tablet (Bactrim) 1 tab PO BID 03/17/25
Review of Systems
-
History Source: Other (Son [place] via phone)
A 12 point ROS was completed and negative except as noted: Yes
Constitutional: Reports Other (Agitation, screaming yelling for her mother hallucinations grabbing at the air, attempting to get out of bed)
Respiratory: Denies Cough or Trouble Breathing
Cardiac: Denies Diaphoresis
Abdomen/GI: Denies Vomiting or Diarrhea
Musculoskeletal: Reports Other (Healing incision right lateral knee)
Skin: Denies Rash
Neurological: Denies Weakness
Psych: Reports Dementia and Audio or Visual Hallucinations (Visual grabbing in the air or calling out her mother's name)
Physical Exam
Vital Signs
Vital Signs
Temp Pulse Resp BP Pulse Ox
97.7 F 90 18 156/88 100
03/25/25 10:20 03/25/25 16:45 03/25/25 16:45 03/25/25 16:01 03/25/25 12:45
Physical Exam
General: Other (Agitation, screaming yelling for her mother hallucinations grabbing at the air, attempting to get out of bed); No Fever or Chills
HEENT: NormoCephalic, Anicteric and Atraumatic
Respiratory: Clear; No Wheezes or Rales
Cardiac: S1/S2 and Regular Rhythm
GI: Soft, Non Tender, Non Distended, Normal Bowel Sounds and No Hepatosplenomegaly
Genito-urinary: Deferred by me
Musculoskeletal: No Clubbing, No Cyanosis, No Edema and Other (Incision to right lateral knee intact no surrounding erythema or drainage)
Skin: Warm, Dry and Rash
Neuro: Awake, Alert (Agitation, screaming yelling for her mother hallucinations grabbing at the air, attempting to get out of bed) and No Sensory Deficits; No Slurred Speech, Facial Droop or Tremors
Psych: Confused and Agitated (Visual hallucinations)
Impression/Plan
-
Impression/plan:
Observation MedSurg
#Worsening Alzheimer's with Severe agitation with Hallucinations
Alzheimer's dementia with aphasia suspected moderate to severe with behavioral disturbances
Patient screaming appears to be visual hallucinating grabbing at things is unable to participate in physical therapy at [facility]
- Case management consulted [facility] they will be sending nurse to eval in am for acceptence
- One-to-one observation due to severe confusion/hallucinating attempting get out of bed
- IM Haldol as needed agitation
-Continue BuSpar, Ativan, Zoloft
- Patient with no IV access
- Will attempt EKG once for QTc monitoring once patient calm
#Hypokalemia
K3.1
Will give KCl elixir 40 mEq
-Repeat BMP in a.m.
#Unwitnessed fall with comminuted right hip fracture status post right hip gamma nail fixation 03/21/[address] Desir
- Continue PT
#Chronic anemia
Postop hemoglobin was around 7 patient was started on daily iron pill
-Hgb currently 8.9
-Baseline hemoglobin around 10
#Depression/anxiety
-Continue BuSpar, Ativan, Zoloft
#Dysphagia
-Recent swallow eval approved for pur�ed diet
#Bal's esophagus
Continue PPI
#History of UTI 02/23/25
-Completed recent Bactrim in February with repeat culture negative
#Cachexia
VTE prophylaxis
Subcu Lovenox 30 mg
DNR per son BUD
[2025-03-25] MEDS: LOVENOX 30 MG SC (18:38)
[2025-03-25] MEDS: HALDOL 1 MG IM (18:45)
[2025-03-25] MEDS: BUSPAR 7.5 MG PO (21:21)
[2025-03-25] MEDS: ARICEPT 5 MG PO (21:22)
[2025-03-25] MEDS: COLACE 100 MG PO (21:22)
[2025-03-25] MEDS: ATIVAN 0.5 MG PO (23:23)
[2025-03-26 06:34] LABS: ALT (SGPT) 19 U/L (0-35); AST (SGOT) 35 U/L (14-36); Albumin 3.0 g/dl (3.5-5.0); Alkaline Phosphatase 65 U/L (38-126); Blood Urea Nitrogen 10 mg/dl (7-17); Calcium 8.5 mg/dl (8.4-10.2); Carbon Dioxide 26 mmol/L (22-30); Chloride 103 mmol/L (98-107); Glucose 96 mg/dl (70-99); Potassium 2.9 mmol/L (3.5-5.1); Sodium 136 mmol/L (135-145); Total Protein 6.2 g/dl (6.3-8.2); eGFR > 60.00
[2025-03-26 06:38] LABS: Hematocrit 25.3 % (37.0-47.0); Hemoglobin 8.1 g/dL (12.0-16.0); Mean Corp Hgb Conc. 32.0 g/dL (33.0-37.0); Mean Corpuscular Volume 88.8 fL (81.0-99.0); Platelet Count 463 10^3/uL (130-400); Red Cell Dist. Width 15.0 % (11.5-14.5)
[2025-03-26 07:00] VITALS: BP 144/76
--- NOTE | 2025-03-26 07:39 | W.PN.HOSP.TC ---
Addendum entered and electronically signed by Lacho Yoder MD 03/26/25 20:53:
Attending Addendum-
I saw and evaluated the patient. I reviewed the resident�s note and agree with findings and plan as documented in the resident�s note. Sub: patient placed in soft restraints ON due to agitation. appears fearful. screaming out with light touch.
Severely confused. 'Im fine leave me alone' Full 12 point ROS unable to ascertain due to dementia Exam: Vitals reviewed in chart GEN-mod distress Heart RRR lungs clear abd soft LE right hip incision with tobi in place bruising present pulses
intact Neuro-AAO x 0
Plan:
#Delirium on Alzheimer's dementia with behavioral disturbance
- unable to participate in physical therapy at [facility] due to severe agitation (dc to [facility] on 03/23)
- cont soft restraints due to severe confusion/hallucinating attempting get out of bed
- IM Haldol as needed agitation
- Continue BuSpar, Ativan, Zoloft
- start IVF as appears dehydrated
- pain control, r/o infection
- t/c antipsychotic
- DC donepezil
- DC to [facility] on Saturday- eval completed
#Hypokalemia-replete, repeat BMP in am
#Recent right hip fracture status post right hip gamma nail fixation 03/21 Dr. Desir
- Continue PT
- cont lovenox for DVTp x 35 days
#ID anemia-cont iron
#Depression/anxiety-Continue BuSpar, Ativan, Zoloft
#Dysphagia-appreciate speech eval cont pur�ed diet with thin liquids
#Bal's esophagus-Continue protonix
#Cachexia
VTE prophylaxis
Subcu Lovenox 30 mg
DNR per son BUD
Dispo- coming from [facility]- DC to [facility] on saturday per CM
Time spent coordinating care, review of plan of care with resident, personally reviewed records in EMR, med rec, consults, notes, labs, radiology, d/w nursing CM �51 mins
Original Note:
Today's Communication/Plan
-
IV Fluid
Potassium repletion
Assessment / Plan
Assessment / Plan
Assessment:
This is a 79 y/o female with pmhx of Alzheimer�s dementia, anxiety/depression, Bal�s esophagus and osteoarthritis who has been seen in [facility] emergency department many times primarily for falls now seen again for agitation after recent
gamma nail fixation of the hip.
Plan:
Advanced Alzheimer�s with Severe Agitation and Hallucinations
-Continue one on one observation
-Continue soft restraints as needed
-Continue IM Haldol PRN for agitation
-Continue Ativan (This appears to be a home medication since at least January)
-Consider Seroquel if needed if agitation persists, although this morning patient has been very calm
-Will contact patient's son to determine what her baseline mentation is, how she was prior to her February admission, and how she has been since discharge
Hypokalemia
-Potassium on 03/24, decreased to 2.9
-Ordered Potassium elixer 40 mEq today
-Ordered IV NS 1L Today
-Will monitor BMP
S/p Fall
S/p Gamma Nail Fixation of Hip
-Patient with history of multiple falls leading to ED visits with most recent resulting in right hip fracture in end of February of this year
-Continue Physical Therapy
-At this time, very very low clinical suspicion for infection contributing to the above symptoms as WBC has remained normal, she has remained free of fevers
-No further indication for antibiotics
-Will monitor
Chronic Anemia, likely Iron Deficiency
-Hemoglobin today 8.1
-Continue ferrous sulfate 32mg po Daily
-Continue to monitor CBC
-Goal to keep hemoglobin above 7
Depression/Anxiety
-Continue home medications (Buspirone, Sertraline, Ativan)
Dysphagia
-Patient evaluated by speech therapy at last visit, on appropriate diet
Bal�s Esophagus
-Will monitor
Anticipated Discharge: 24 - 48 hours
Subjective/Interval History
-
Date of Service: March 26, 2025
Patient was sleeping very soundly in her room when I arrived. She did not awaken at all when I spoke to her or gently attempted to wake her up by touching her arm or during my physial exam. Based upon prior records, she is not often able to
meaningfully contribute to conversations about her care. By staff report, she has spent the entire morning sleeping soundly and has not had any outbursts of screaming.
Objective Data
-
Labs:
Laboratory Results
03/26/25
05:45
WBC 6.8
Hgb 8.1 L
Hct 25.3 L
Plt Count 463 H D
Sodium 136
Potassium 2.9 L
Chloride 103
Carbon Dioxide 26
BUN 10
Creatinine 0.3 L
Glucose 96
Calcium 8.5
Total Bilirubin 1.6 H
AST 35
ALT 19
Alkaline Phosphatase 65
Vital Signs:
Vital Signs
Temp Pulse Resp BP Pulse Ox
97.3 F 86 18 140/73 91
03/25/25 22:46 03/25/25 22:46 03/25/25 22:46 03/25/25 22:46 03/25/25 22:46
Review of Systems
-
Unable to obtain full review of systems at this time due to: Dementia
Physical Exam
-
General: Well Developed, Well Nourished, No Apparent Distress and Comfortable
HEENT: Normocephalic and Atraumatic
Respiratory: Clear to Auscultation (As able to be heard on physical exam, limited by dementia)
Cardiac: Regular Rhythm and S1/S2
Skin: Warm and Dry
Neuro: Negative Awake
[2025-03-26] MEDS: MAGNESIUM OXIDE 400 MG PO (08:19)
[2025-03-26] MEDS: ZOLOFT 125 MG PO (08:19)
[2025-03-26] MEDS: BUSPAR 7.5 MG PO ×2 (08:19→21:07)
[2025-03-26] MEDS: FEOSOL 325 MG PO (08:19)
[2025-03-26] MEDS: COLACE 100 MG PO ×2 (08:19→21:05)
[2025-03-26] MEDS: PROTONIX 40 MG PO ×2 (08:20→21:05)
[2025-03-26] MEDS: KCL ELIXIR 40 MEQ PO (10:46)
[2025-03-26] MEDS: TYLENOL 650 MG PO ×2 (10:47→21:05)
[2025-03-26 12:04] LABS: Nucleated Red Blood Cells % 0.3 %
[2025-03-26] MEDS: NSS 1000 IV ×2 (13:45→23:10)
[2025-03-26 14:03] VITALS: BP 136/66
[2025-03-26 15:00] VITALS: BP 119/55
--- NOTE | 2025-03-26 16:28 | CM ---
Trish from [facility] met with patient and information given needed for admission to [facility].
Unsure which location patient will be going [facility] or [facility].
[facility] has been in contact with family .
PLAN To [facility] memory care Saturday
[2025-03-26] MEDS: LOVENOX 30 MG SC (17:18)
[2025-03-26] MEDS: ATIVAN 0.5 MG PO (21:05)
[2025-03-26 23:00] VITALS: BP 158/85
[2025-03-27 07:30] VITALS: BP 144/65
[2025-03-27 08:35] LABS: Hematocrit 26.4 % (37.0-47.0); Hemoglobin 8.3 g/dL (12.0-16.0); Mean Corp Hgb Conc. 31.4 g/dL (33.0-37.0); Mean Corpuscular Volume 88.6 fL (81.0-99.0); Platelet Count 499 10^3/uL (130-400); Red Cell Dist. Width 15.2 % (11.5-14.5)
[2025-03-27 08:38] LABS: Blood Urea Nitrogen 6 mg/dl (7-17); Calcium 8.1 mg/dl (8.4-10.2); Carbon Dioxide 30 mmol/L (22-30); Chloride 102 mmol/L (98-107); Glucose 99 mg/dl (70-99); Potassium 3.5 mmol/L (3.5-5.1); Sodium 136 mmol/L (135-145); eGFR > 60.00
[2025-03-27] MEDS: ZOLOFT 125 MG PO (09:31)
[2025-03-27] MEDS: FEOSOL 325 MG PO (09:31)
[2025-03-27] MEDS: TYLENOL 650 MG PO (09:31)
[2025-03-27] MEDS: BUSPAR 7.5 MG PO ×2 (09:33→21:17)
[2025-03-27] MEDS: PROTONIX 40 MG PO ×2 (09:33→21:17)
[2025-03-27] MEDS: MAGNESIUM OXIDE 400 MG PO (09:34)
[2025-03-27] MEDS: COLACE 100 MG PO ×2 (09:34→21:17)
[2025-03-27 09:42] LABS: Iron 36 ug/dl (37-170)
[2025-03-27 09:53] LABS: Total Iron Binding Capacity 224 ug/dl (265-497)
[2025-03-27] MEDS: TORADOL 10 MG IV (10:03)
[2025-03-27 10:54] LABS: Vitamin D, 25-OH*** < 12.8 ng/mL (30-80)
[2025-03-27 11:07] LABS: TSH 5.98 uIU/ml (0.47-4.68)
[2025-03-27 11:12] LABS: Ferritin 642.0 ng/ml (11.1-264.0)
--- NOTE | 2025-03-27 11:24 | W.PN.HOSP.TC ---
Today's Communication/Plan
-
Abd X ray
Pain control
Psyche eval
IV iron
PT OT
Assessment / Plan
Assessment / Plan
79-year-old with dementia brought to ED with falls and agitation. Patient has been declining since her surgery and refusing to take medicines agitated and confused. She developed fever a week ago but cultures were negative COVID and influenza were
also negative. Patient was living in memory care unit prior to the fall
Chest x-ray-clear lungs
X-ray of the hip 03/24/2025-hardware intertrochanteric area no fracture
Head CT 03/24/2024-moderate changes of cortical atrophy and chronic ischemic disease
Pleasant awake and alert
Patient does not want to be touched anywhere you touch she screams
Cardiovascular system S1-S2 appreciated
Chest clear to auscultation
Abdomen soft and nontender
Right hip tobi intact mild bruising-healing no pedal edema
# Agitations with hallucination in a patient with dementia
Psychiatric evaluation
# Dementia with behavioral disturbance on buspirone 7.5 mg twice daily, Aricept 5 mg at bedtime as outpatient. Also on lorazepam 0.5 mg Q6R as needed for anxiety
# Hypokalemia-resolved
# Vitamin D deficiency-replace
# Elevated TSH-repeat with reflex to T4
# Recent traumatic hip fracture with gamma nail fixation on 03/21/2025. X-ray with no fracture on 03/24/2025
# UTI on 02/23/2025 completed treatment with Bactrim with repeat cultures negative
# LAURA- Add IV iron.
# Dysphagia-Speech eval
# Bal's esophagus-continue PPI
# Anxiety and depression-on lorazepam and sertraline as outpatient
# DVT prophylaxis-subcutaneous Lovenox
# DNR
D/W RN at bed side
Left a message for son Neto
Part of this note was created using voice recognition system. Occasional wrong word or��sound alike� substitutions may have inadvertently occurred due to the inherent limitations of voice recognition software. If noted kindly bring it to my
attention for correction.
Anticipated Discharge: 24 - 48 hours
Subjective/Interval History
-
Date of Service: March 27, 2025
Objective Data
-
Labs:
Laboratory Results
03/27/25
07:45
WBC 6.8
Hgb 8.3 L
Hct 26.4 L
Plt Count 499 H
Sodium 136
Potassium 3.5
Chloride 102
Carbon Dioxide 30
BUN 6 L
Creatinine 0.3 L
Glucose 99
Calcium 8.1 L
Vital Signs:
Vital Signs
Temp Pulse Resp BP Pulse Ox
97.4 F 80 20 144/65 96
03/27/25 07:30 03/27/25 07:30 03/27/25 07:30 03/27/25 07:30 03/27/25 07:30
I&O
03/26/25 03/27/25 03/28/25
06:59 06:59 06:59
Intake Total 1440 / 1440
Balance 1440 / 1440
[2025-03-27 11:27] LABS: Vitamin B12 926 pg/ml (239-931)
[2025-03-27] MEDS: KCL 20 MEQ PO (11:51)
[2025-03-27] MEDS: DRISDOL (VITAMIN D2) 50000 UNITS PO (11:51)
[2025-03-27] MEDS: NSS 1000 IV (12:18)
[2025-03-27 12:31] LABS: Magnesium 1.7 mg/dl (1.6-2.3)
[2025-03-27] MEDS: TYLENOL 1000 MG PO ×2 (14:01→21:17)
[2025-03-27] MEDS: FERRLECIT 110 MG IV (14:04)
--- NOTE | 2025-03-27 15:44 | CON.MD ---
Consultation - Medical
-
79 yr old F w/ PMH of advanced Alzheimer's dementia, anxiety/depression, OA, Bal's esophagus w/ dysphagia, chronic anemia (baseline Hg 10, current Hg 8.9), Hx on UTI on 02/23, treated w/ [facility], culture negative. Pt had gamma nail surgery on R
femur on 03/21. Presented from [facility] for agitation. Seen in ER night prior for agitation as well. Pt found to be hypotensive on admission, potassium 3.1, no acute abnormality on CXR.
Following admission pt observed to be screaming, grabbing at things in the air, pulling out IVs. Spoke to nursing who reported that whenever pt is touched she begins screaming and is difficult to calm, which has made it difficult if not impossible
to toilet/change/medicate/etc. Pt seen & evaluated at bedside - she was unable to participate in meaningful interview. Unable to provide any meaningful responses, often would moan quietly in response if any response was provided.
Pt also w/ hx of depression anxiety, currently on the following: sertraline 125mg daily, buspirone 7.5mg BID, Ativan 0.5mg Q6HPRN.
Alzheimer's dementia, severe, likely w/ superimposed delirium
MSE: female, poor eye contact, minimal dysphagic speech. Unable to assess mood/thought process/thought content though based on reported observations & hx pt likely with intermittent hallucinations. Affect is blunted. Not oriented. Memory not
formally tested. Insight/judgement poor.
1. Risperidone 0.25mg BID + Risperidone 0.25mg TIDPRN acute agitation, may also help improve appetite as pt is quite cachectic
2. Decreased sertraline to 100mg as SSRI's can be activating in this population
3. Discontinued Ativan as can be activating/worsen delirium & agitation in the elderly, in particular with underlying dementia
4. Continue buspirone 7.5mg BID
Psychiatry will continue to follow.
[2025-03-27 16:00] VITALS: BP 176/76
--- NOTE | 2025-03-27 17:00 | PTCARENOTE ---
this am, patient screaming with turning. unsure of how much patient is really in as she screams with basic care. will turn her head when her name is said, but not able to verbalize her name to nursing staff. medicated with PRN Tylenol (see MAR) and
patient asleep. at 0945, patient screaming again with trying to give her basic care, such as even fixing pillow under head at times, uncooperative and resisting care. and notified Dr. Long and she ordered Toradol now. after Toradol unsure of
how much it helped. when patient undisturbed, she appears comfortable, but when any type of care provided, she screams loudly and resists care and turning and is uncooperative, will continue to monitor.
[2025-03-27] MEDS: LOVENOX 30 MG SC (17:18)
[2025-03-27] MEDS: RISPERDAL M-TAB (ORALLY DISINTEGRATING) 0.25 MG PO ×2 (18:26→21:18)
[2025-03-27 23:57] VITALS: BP 143/66
[2025-03-28] MEDS: TYLENOL PO ×2 (05:10→05:31)
[2025-03-28 06:48] LABS: Hematocrit 25.7 % (37.0-47.0); Hemoglobin 7.9 g/dL (12.0-16.0); Mean Corp Hgb Conc. 30.7 g/dL (33.0-37.0); Mean Corpuscular Volume 88.6 fL (81.0-99.0); Platelet Count 467 10^3/uL (130-400); Red Cell Dist. Width 15.6 % (11.5-14.5)
[2025-03-28 07:29] LABS: Blood Urea Nitrogen 6 mg/dl (7-17); Calcium 8.0 mg/dl (8.4-10.2); Carbon Dioxide 31 mmol/L (22-30); Chloride 104 mmol/L (98-107); Glucose 86 mg/dl (70-99); Potassium 3.1 mmol/L (3.5-5.1); Sodium 137 mmol/L (135-145); eGFR > 60.00
[2025-03-28 07:30] VITALS: BP 134/61
[2025-03-28 09:25] LABS: Magnesium 1.8 mg/dl (1.6-2.3)
--- NOTE | 2025-03-28 09:40 | W.PN.HOSP.TC ---
Addendum entered and electronically signed by Trey Long MD 03/28/25 13:33:
79-year-old with dementia brought to ED with falls and agitation. Patient has been declining since her surgery and refusing to take medicines agitated and confused. She developed fever a week ago but cultures were negative COVID and influenza were
also negative. Patient was living in memory care unit prior to the fall
Chest x-ray-clear lungs
X-ray of the hip 03/24/2025-hardware intertrochanteric area no fracture
Head CT 03/24/2024-moderate changes of cortical atrophy and chronic ischemic disease
Pleasant awake and alert
Better today in terms of behavior
Cardiovascular system S1-S2 appreciated
Chest clear to auscultation
Abdomen soft and nontender
Right hip tobi intact mild old bruising-healing no pedal edema
# Constipation-bowel regimen ordered. Mag citrate, senna for tonight. Dulcolax now.
# Anemia-son is aware that she needs to get this workup as outpatient
# Agitations with hallucination in a patient with dementia-Psychiatric evaluation appreciated
# Dementia with behavioral disturbance on buspirone 7.5 mg twice daily, Aricept 5 mg at bedtime as outpatient. Lorazepam 0.5 mg stopped. Zoloft reduced. Risperidone started
# Hypokalemia-resolved
# Vitamin D deficiency-replace
# Elevated TSH-repeat with reflex to T4
# Recent traumatic hip fracture with gamma nail fixation on 03/21/2025. X-ray with no fracture on 03/24/2025
# UTI on 02/23/2025 completed treatment with Bactrim with repeat cultures negative
# LAURA- Add IV iron.
# Dysphagia-Speech eval
# Bal's esophagus-continue PPI
# Anxiety and depression-on lorazepam and sertraline as outpatient
# DVT prophylaxis-subcutaneous Lovenox
# DNR
D/W RN at bed side
Discussed with son [place]. He stated that patient had dementia but was able to walk and eat by herself. Since the hospital stay in rehab her condition has gotten worse which she thinks because of unfamiliar environment. He very much understands how
dementia works and that her confusion is likely secondary to changing places being sick surgery excetra. Discussed about discharge to rehab when she has a bowel movement and able to cooperate with staff which she is actually getting better.
Part of this note was created using voice recognition system. Occasional wrong word or��sound alike� substitutions may have inadvertently occurred due to the inherent limitations of voice recognition software. If noted kindly bring it to my
attention for correction.
Original Note:
Today's Communication/Plan
-
Potassium repleted
Magnesium citrate for constipation - will escalate bowel regimen as needed
Appreciate psychiatry recommendations
EKG to monitor QTc
Assessment / Plan
Assessment / Plan
Assessment:
This is a 79 y/o female with pmhx of Alzheimer�s dementia, anxiety/depression, Bal�s esophagus and osteoarthritis who has been seen in [facility] emergency department many times primarily for falls now seen again for agitation after recent
gamma nail fixation of the hip.
Plan:
Advanced Alzheimer�s with Severe Agitation and Hallucinations
-Continue one on one observation
-Continue soft restraints as needed
-Continue IM Haldol PRN for agitation
-Continue Ativan (This appears to be a home medication since at least January)
-Consider Seroquel if needed if agitation persists, although this morning patient has been very calm
-Will contact patient's son to determine what her baseline mentation is, how she was prior to her February admission, and how she has been since discharge
-Appreciate psychiatry recommendations. They recommended risperidone 0.25 mg twice daily plus risperidone 0.25 mg 3 times daily as needed for acute agitation as it may help improve appetite. They also decrease sertraline to 100 mg. Ativan has
been discontinued as it may have been contributing to worsening delirium with underlying dementia. They recommended continuing BuSpar 7.5 mg twice daily.
-EKG to monitor Qtc
Hypokalemia: Monitoring
-Potassium on 03/24, decreased to 2.9 - repleted
-Potassium on 03/28 was 3.1 -repleted
Hypocalcemia: Monitoring
- Serum calcium was 8.0 on 03/28/2025 -add on albumin lab for corrected calcium calculation
- Calcium was 8.0 with an albumin of 2.8 on 03/28/2025orrected calcium level was 8.6 which is within normal limits
Elevated TSH: Monitoring
- Elevated TSH at 5.08 on 03/28/25 (less than 5.98 on 03/27/25) Reflex to T4 was 1.76
- Differential includes euthyroid sick syndrome, subclinical hypothyroidism, drug-induced hypothyroidism, possible iodine deficiency
S/p Fall
S/p Gamma Nail Fixation of Hip
-Patient with history of multiple falls leading to ED visits with most recent resulting in right hip fracture in end of February of this year
-Continue Physical Therapy
-At this time, very very low clinical suspicion for infection contributing to the above symptoms as WBC has remained normal, she has remained free of fevers
-No further indication for antibiotics
-Will monitor
Iron deficiency anemia:
-Hemoglobin today 8.1
-Continue ferrous sulfate 32mg po Daily
-Continue to monitor CBC
-Goal to keep hemoglobin above 7
- IV iron added
Constipation: Monitoring
-Magnesium citrate given
-Abdominal x-ray conducted on 03/27/2025 had a large amount of fecal material throughout the descending colon, sigmoid colon and rectum
Vitamin D deficiency:
- Repleted
Depression/Anxiety:
-Continue home medications (Buspirone, Sertraline, Ativan)
Dysphagia:
-Patient evaluated by speech therapy at last visit, on appropriate diet
Bal�s Esophagus:
-Continue PPI
Recent traumatic hip fracture with gamma nail fixation on 03/21/2025:
-X-ray with no fracture on 03/24/2025
UTI: Resolved
-Completed treatment with Bactrim on 02/23/2025 with repeat negative cultures
CODE STATUS: DNR
DVT prophylaxis: Lovenox sq
Anticipated Discharge: 24 - 48 hours
Subjective/Interval History
-
Date of Service: March 28, 2025
Met with patient at the bedside. She was very sleepy and did not want to wake up to questions asked. Laying comfortably in bed.
Objective Data
-
Labs:
Laboratory Results
03/28/25
06:15
WBC 4.5 L
Hgb 7.9 L
Hct 25.7 L
Plt Count 467 H
Sodium 137
Potassium 3.1 L
Chloride 104
Carbon Dioxide 31 H
BUN 6 L
Creatinine 0.4 L
Glucose 86
Calcium 8.0 L
Vital Signs:
Vital Signs
Temp Pulse Resp BP Pulse Ox
97.4 F 80 16 134/61 95
03/28/25 07:30 03/28/25 07:30 03/28/25 07:30 03/28/25 07:30 03/28/25 07:30
I&O
03/27/25 03/28/25 03/29/25
06:59 06:59 06:59
Intake Total 1440 / 1440 1010 / 1010
Balance 1440 / 1440 1010 / 1010
Review of Systems
-
Unable to obtain full review of systems at this time due to: Dementia
Physical Exam
-
General: Well Developed, Well Nourished, No Apparent Distress and Comfortable
HEENT: Normocephalic and Atraumatic
Respiratory: Clear to Auscultation (As able to be heard on physical exam, limited by dementia)
Cardiac: Regular Rhythm and S1/S2
Skin: Warm and Dry
Neuro: Negative Awake
[2025-03-28] MEDS: PROTONIX 40 MG PO ×2 (09:53→20:01)
[2025-03-28] MEDS: COLACE 100 MG PO (09:54)
[2025-03-28] MEDS: ZOLOFT 100 MG PO (09:54)
[2025-03-28] MEDS: VITAMIN D3 (cholecalciferol) 50 MCG PO (09:54)
[2025-03-28] MEDS: MAGNESIUM OXIDE 400 MG PO (09:54)
[2025-03-28] MEDS: BUSPAR 7.5 MG PO ×2 (09:54→19:58)
[2025-03-28] MEDS: RISPERDAL M-TAB (ORALLY DISINTEGRATING) 0.25 MG PO ×2 (09:56→20:02)
[2025-03-28] MEDS: KCL 40 MEQ PO (09:59)
[2025-03-28] MEDS: CITROMA 300 ML PO (10:18)
[2025-03-28 10:34] LABS: Albumin 2.8 g/dl (3.5-5.0)
[2025-03-28] MEDS: TYLENOL 1000 MG PO ×2 (12:00→20:02)
[2025-03-28] MEDS: DULCOLAX 10 MG RECTAL (14:24)
[2025-03-28] MEDS: FERRLECIT 110 MG IV (14:24)
[2025-03-28 16:00] VITALS: BP 163/85
--- NOTE | 2025-03-28 16:06 | W.PN.UPDATE ---
Addendum entered and electronically signed by Juan Carlos Foote MD 03/28/25 16:12:
i do wonder if buspar serving any purpose here....would consider dc as it is difficult as it is to get her to take pills. note zoloft already decreased.
Original Note:
Update Note
Progress Note Update
patient seen chart reviewed . discussed with nursing. when i came into the room she was quietly lying in bed but i noted that her iv had wrapped around her abdomen and left leg as she had shifted in the bed so both legs were off the bed. nursing
and i repositioned her and righted the iv and at this point she was screaming loudly although we did not do anything that was causing her pain. she had not received any prns in the past two days. will be changing risperdal prn to orally
disintergrating form as it is difficult to get pills into her and nsg feels odt would be easier. will follow
[2025-03-28] MEDS: LOVENOX 30 MG SC (17:38)
[2025-03-28] MEDS: COLACE PO (20:01)
[2025-03-28 23:48] VITALS: BP 123/58
[2025-03-29] MEDS: TYLENOL PO (04:33)
--- NOTE | 2025-03-29 04:40 | PTCARENOTE ---
Pt screaming and speaking incoherently to herself. Pt covered in liquid stool, all extremities, trunk, face and mouth. Pt screaming loudly and uncooperative while being turned and bathed. Mouth care performed. All dressings changed. bed alarm in
place.
[2025-03-29 05:54] LABS: Hematocrit 29.2 % (37.0-47.0); Hemoglobin 9.1 g/dL (12.0-16.0); Mean Corp Hgb Conc. 31.2 g/dL (33.0-37.0); Mean Corpuscular Volume 90.4 fL (81.0-99.0); Platelet Count 578 10^3/uL (130-400); Red Cell Dist. Width 15.9 % (11.5-14.5)
[2025-03-29 06:15] LABS: ALT (SGPT) 20 U/L (0-35); AST (SGOT) 44 U/L (14-36); Albumin 3.4 g/dl (3.5-5.0); Alkaline Phosphatase 101 U/L (38-126); Blood Urea Nitrogen 7 mg/dl (7-17); Calcium 8.8 mg/dl (8.4-10.2); Carbon Dioxide 31 mmol/L (22-30); Chloride 103 mmol/L (98-107); Glucose 100 mg/dl (70-99); Potassium 3.7 mmol/L (3.5-5.1); Sodium 138 mmol/L (135-145); Total Protein 6.9 g/dl (6.3-8.2); eGFR > 60.00
[2025-03-29 07:31] VITALS: BP 137/72
--- NOTE | 2025-03-29 07:51 | W.PN.HOSP.TC ---
Today's Communication/Plan
-
Discharge planning
Assessment / Plan
Assessment / Plan
Assessment:
This is a 79 y/o female with pmhx of Alzheimer�s dementia, anxiety/depression, Bal�s esophagus and osteoarthritis who has been seen in [facility] emergency department many times primarily for falls now seen again for agitation after recent
gamma nail fixation of the hip.
Plan:
Advanced Alzheimer�s with Severe Agitation and Hallucinations
-Continue one on one observation
-Continue soft restraints as needed
-Continue IM Haldol PRN for agitation
-Continue Ativan (This appears to be a home medication since at least January)
-Consider Seroquel if needed if agitation persists, although this morning patient has been very calm
-Will contact patient's son to determine what her baseline mentation is, how she was prior to her February admission, and how she has been since discharge
-Appreciate psychiatry recommendations. They recommended risperidone 0.25 mg twice daily plus risperidone 0.25 mg 3 times daily as needed for acute agitation as it may help improve appetite. They also decrease sertraline to 100 mg. Ativan has
been discontinued as it may have been contributing to worsening delirium with underlying dementia. They recommended continuing BuSpar 7.5 mg twice daily.
-EKG to monitor Qtc
Hypokalemia: Monitoring
-Potassium on 03/24, decreased to 2.9 - repleted
-Potassium on 03/28 was 3.1 -repleted
-Potassium today 3.7
Hypocalcemia: Monitoring
- Serum calcium was 8.0 on 03/28/2025 -add on albumin lab for corrected calcium calculation
- Calcium was 8.0 with an albumin of 2.8 on 03/28/2025orrected calcium level was 8.6 which is within normal limits
- Calcium today 8.8
Elevated TSH: Monitoring
- Elevated TSH at 5.08 on 03/28/25 (less than 5.98 on 03/27/25) Reflex to T4 was 1.76
- Differential includes euthyroid sick syndrome, subclinical hypothyroidism, drug-induced hypothyroidism, possible iodine deficiency
- Recommend follow up after discharge
S/p Fall
S/p Gamma Nail Fixation of Hip
-Patient with history of multiple falls leading to ED visits with most recent resulting in right hip fracture in end of February of this year
-Continue Physical Therapy
-At this time, very very low clinical suspicion for infection contributing to the above symptoms as WBC has remained normal, she has remained free of fevers
-No further indication for antibiotics
-Contacted her orthopedic surgeon as her new facility can only administer oral medications. Upon discharge, will switch Lovenox to aspirin 325mg
-Will monitor
Iron deficiency anemia:
-Hemoglobin 9.1 today
-Continue ferrous sulfate 32mg po Daily
-Continue to monitor CBC
-Goal to keep hemoglobin above 7
Constipation: Monitoring
-Magnesium citrate given
-Abdominal x-ray conducted on 03/27/2025 had a large amount of fecal material throughout the descending colon, sigmoid colon and rectum
Vitamin D deficiency:
- Repleted
Depression/Anxiety:
-Continue home medications (Buspirone, Sertraline)
Dysphagia:
-Patient evaluated by speech therapy at last visit, on appropriate diet
Bal�s Esophagus:
-Continue PPI
Recent traumatic hip fracture with gamma nail fixation on 03/21/2025:
-X-ray with no fracture on 03/24/2025
UTI: Resolved
-Completed treatment with Bactrim on 02/23/2025 with repeat negative cultures
CODE STATUS: DNR
DVT prophylaxis: Lovenox sq
Anticipated Discharge: Today
Subjective/Interval History
-
Date of Service: March 29, 2025
Patient was resting comfortably in her room when I arrived. She was only able to communicate sparingly with me. I contacted her son, Lc, and reviewed her medication changes and progress. [place] [facility] [place] to
help facilitate a seamless transition of care.
Objective Data
-
Labs:
Laboratory Results
03/29/25
05:33
WBC 7.0
Hgb 9.1 L
Hct 29.2 L
Plt Count 578 H D
Sodium 138
Potassium 3.7
Chloride 103
Carbon Dioxide 31 H
BUN 7
Creatinine 0.3 L
Glucose 100 H
Calcium 8.8
Total Bilirubin 1.4 H
AST 44 H
ALT 20
Alkaline Phosphatase 101
Vital Signs:
Vital Signs
Temp Pulse Resp BP Pulse Ox
97.6 F 80 15 137/72 97
03/29/25 07:31 03/29/25 07:31 03/29/25 07:31 03/29/25 07:31 03/29/25 07:31
I&O
03/28/25 03/29/25 03/30/25
06:59 06:59 06:59
Intake Total 1010 / 1010
Balance 1010 / 1010
Review of Systems
-
Unable to obtain full review of systems at this time due to: Dementia
Physical Exam
-
General: Well Developed, Well Nourished, No Apparent Distress and Appears Chronically Ill
HEENT: Normocephalic and Atraumatic
Cardiac: Regular Rhythm and S1/S2
Musculoskeletal: No Edema and Other (Bruising of the left hip with a medical bandage in place from prior surgery)
Skin: Warm and Dry
Neuro: Awake
Psych: Calm and Confused
[2025-03-29] MEDS: MAGNESIUM OXIDE 400 MG PO (08:35)
[2025-03-29] MEDS: BUSPAR 7.5 MG PO (08:35)
[2025-03-29] MEDS: PROTONIX 40 MG PO (08:35)
[2025-03-29] MEDS: RISPERDAL M-TAB (ORALLY DISINTEGRATING) 0.25 MG PO (08:35)
[2025-03-29] MEDS: ZOLOFT 100 MG PO (08:35)
[2025-03-29] MEDS: VITAMIN D3 (cholecalciferol) 50 MCG PO (08:36)
[2025-03-29] MEDS: COLACE PO (08:36)
--- NOTE | 2025-03-29 09:50 | CM ---
Tr[facility] [phone] saw pt today and accepted her to [facility] [address] today .
notified pt needs all meds paper scripts sent with her.
Pt changed to inpatient . Spoke with Budd son reviewed above . He agrees with IMM and dc to [facility] today .
Agreed with ambulance transport . Medical nec form completed
PLAN To [facility]
--- NOTE | 2025-03-29 11:51 | W.PN.UPDATE ---
Update Note
Progress Note Update
spoke with cm . patient going to [facility] today so while i reviewed chart did not see her. she has not required prn's in several days and seems stable w current psych meds
[2025-03-29 12:30] VITALS: BP 130/70
[2025-03-29] MEDS: TYLENOL 1000 MG PO (12:52)
[2025-03-29] MEDS: RISPERDAL M-TAB (ORALLY DISINTEGRATING) 0.5 MG PO (12:52)
--- NOTE | 2025-03-29 13:22 | W.PN.UPDATE ---
Update Note
Progress Note Update
Seen and examined the patient with the resident. Agree with plan of care formulated. See changes in my documentation
79-year-old with dementia brought to ED with falls and agitation. Patient has been declining since her surgery and refusing to take medicines agitated and confused. She developed fever a week ago but cultures were negative COVID and influenza were
also negative. Patient was living in memory care unit prior to the fall
Chest x-ray-clear lungs
X-ray of the hip 03/24/2025-hardware intertrochanteric area no fracture
Head CT 03/24/2024-moderate changes of cortical atrophy and chronic ischemic disease
Pleasant awake and alert
Able to coperate today
Cardiovascular system S1-S2 appreciated
Chest clear to auscultation
Abdomen soft and nontender
Right hip tobi intact mild bruising-healing no pedal edema
# Agitations with hallucination in a patient with dementia
Psychiatric evaluation appreciated.
Much better now
# Dementia with behavioral disturbance on buspirone 7.5 mg twice daily, Aricept 5 mg at bedtime as outpatient. Also on lorazepam 0.5 mg Q6R as needed for anxiety. Lorazepam stopped may stop Aricept at discharge
# Hypokalemia-resolved
# Vitamin D deficiency-replace
# Elevated TSH-repeat with reflex to T4 as outpatient
# Recent traumatic hip fracture with gamma nail fixation on 03/21/2025. X-ray with no fracture on 03/24/2025
# UTI on 02/23/2025 completed treatment with Bactrim with repeat cultures negative
# LAURA-continue iron.
# Dysphagia-Speech eval
# Bal's esophagus-continue PPI
# Anxiety and depression-on lorazepam and sertraline as outpatient. Lorazepam stopped. Sertraline decreased
# DVT prophylaxis-subcutaneous Lovenox
# DNR
More than 30 minutes spent in discharge including
Final examination of the patient
Summarizing hospital stay
Instructions for continuing care to all relevant caregivers
Preparation of discharge records, prescriptions, and referral forms
Discussed with patient's son Blair yesterday.
Discussed with case management
Part of this note was created using voice recognition system. Occasional wrong word or��sound alike� substitutions may have inadvertently occurred due to the inherent limitations of voice recognition software. If noted kindly bring it to my
attention for correction.
--- NOTE | 2025-03-29 13:41 | W.DCSUMMARY ---
Discharge Summary
Discharge Data
Date of Admission: 03/25/25
Date of Discharge: 03/29/25
-
Pending Results: No
Hospital Course
Discharging Physician : Dr. Long
Disposition : Fair
Primary care physician : Emmett Mota DO
Principal Discharge diagnosis : Dementia with mental status change
Chronic Discharge diagnosis : Constipation, Vitamin D deficiency, Hypokalemia, Traumatic hip fracture with gamma nail fixation on 03/13/2025, Pulmonary nodules, Iron deficiency anemia, Dysphagia, Bal's esophagus, Anxiety and depression
Hospital Course :
This is a 79 y/o female with pmhx of Alzheimer�s dementia, anxiety/depression, Bal�s esophagus and osteoarthritis who has been seen [facility] department many times primarily for falls.
Briefly, she was admitted to this same hospital from 03/17/2025-03/23/2025. She had experienced an unwitnessed fall at the memory care unit. An X-ray showed right hip intertrochanteric fracture, and on 03/20 she received a gamma nail fixation. On 03/21
she had some behavioral changes including becoming more noncooperative to care which lasted for 1 day but resolved without medication. She was prescribed a daily iron pill, encouraged to avoid narcotics and discharged to [facility] on 03/23.�On
03/24 she returned to the emergency department for mental status change. She had been screaming frequently throughout the night and has been refusing medications. According to her son, however, this is her baseline since earlier in February, and so
she was discharged back to [facility].
On 03/25 she returned to the emergency department with agitation. She was reportedly screaming and grasping at visual hallucinations. She was given 1mg IM Haldol and was admitted to the hospital. On 03/26 her potassium was revealed to be 2.9, so she
was given KCl 40mEq elixir and was started on 1L of NS. Her Zoloft was decreased from 125mg to 100mg, and IM Haldol was d/c'ed in favor of risperidone 0.5mg BID and 0.5mg TID as needed for agitation. She remained medically stable over the weekend
and on 03/29 was discharged to [facility].
Important imaging findings :
X-ray of the Chest 03/25: Clear lungs. No significant change compared to prior study.
X-ray of Abdomen 03/27: Large amount of fecal material throughout the descending colon, sigmoid colon, and rectum. No radiographic evidence for small bowel obstruction. Recent ORIF of an acute intertrochanteric fracture of the right proximal femur.
Severe multilevel lumbar discogenic degenerative disease. Osteoporosis.
Select Image Finding from PRIOR Hospitalization:
CT Chest 03/19/2025: Mild bronchial wall thickening and mucous plugging/secretion in the right lower lobe. Subpleural atelectasis at the posterior right lung base. Multiple pulmonary nodules predominantly in the left lower lobe measuring up to 6.4
mm. Nonspecific. Possibly infectious or inflammatory. Cannot exclude neoplastic process, such as metastatic disease, though with unusual relatively isolated distribution to the left lower lobe.
Procedure findings : None
Discharge Plan
-
Patient Disposition: Assisted Living
Discharge Diagnosis/Procedures: Dementia with mental status change
Constipation
Vitamin D deficiency
Hypokalemia
Traumatic hip fracture with gamma nail fixation on 03/13/2025
Pulmonary nodules
Iron deficiency anemia
Dysphagia
Bal's esophagus
Anxiety and depression
Condition: Fair
Diet: As tolerated
Additional Diets: Pur�e diet and thin liquids
Activity: No restrictions
Driving Restrictions: As prior to admission
Bathing Restrictions: None
Blood Work: thyroid function tests in 6 weeks. CBC, CMP 1 week
Others Tests: Repeat CT scan of the chest in 3 months
Other Services: PT, OT and ST
Activity Restrictions/Additional Instructions:
Psychiatric follow-up at the rehab
Workup of pulmonary nodules
Workup of [id number] with primary physician as well as GI doctor
Follow-up with with orthopedics for removal of zita in for follow-up of the hip fracture. Zita need to come out 2 weeks from surgery date.
Referrals:
Emmett Mota DO [Family Provider, Family Practice] - in less than 1 week
Josh Desir MD [Active, Orthopedics]
Referral Note: For a hip fracture surgery follow-up and also for staple removal
Additional Discharge Medication Instructions: Your prescriptions have been adjusted during your hospitalization:
1) Your dose of sertraline has been decreased to 100mg.
2) You are also being prescribed the following new medications: Sennosides (2 tablets twice a day), Risperidone (1 tablet twice a day, AND 1 tablet as needed up to three times a day for agitation) and Aspirin (1 tablet daily).
3) Stop taking enoxaparin, lorazepam, and donepezil.
Upon review of your chart from your last hospitalization, a CT scan on 03/19/2025 showed: 'Multiple pulmonary nodules predominantly in the left lower lobe measuring up to 6.4 mm. Nonspecific. Possibly infectious or inflammatory. Cannot exclude
neoplastic process, such as metastatic disease, though with unusual relatively isolated distribution to the left lower lobe.'
We recommend you follow up after discharge from the hospital on these pulmonary nodules.
Prescriptions:
New
sennosides [Olga-rekha] 8.6 mg Tablet
17.2 mg PO BID Qty: 120 0RF
risperidone 0.5 mg Tablet,Disintegrating
0.25 mg PO BID Qty: 60 0RF
risperidone 0.5 mg Tablet,Disintegrating
0.5 mg PO TID PRN (Reason: agitation) Qty: 90 0RF
aspirin 325 mg tablet
325 mg PO DAILY Qty: 30 0RF
Continued
buspirone 5 mg Tablet
7.5 mg PO BID Qty: 60 0RF
acetaminophen 325 mg Tablet
650 mg PO Q6HPRN PRN (Reason: mild pain/fever) Qty: 120 0RF
magnesium hydroxide [Milk of Magnesia] 400 mg/5 mL Suspension
2,400 mg PO DAILYPRN PRN (Reason: constipation) Qty: 900 0RF
ferrous sulfate 325 mg (65 mg iron) tablet
325 mg PO DAILY Qty: 30 0RF
docusate sodium 100 mg Capsule
100 mg PO BID Qty: 60 0RF
omeprazole 20 mg Tablet,Delayed Release (Dr/Ec)
20 mg PO BID Qty: 60 0RF
magnesium oxide 400 mg magnesium Tablet
400 mg PO DAILY Qty: 30 0RF
Changed
sertraline 50 mg Tablet
100 mg PO DAILY Qty: 60 0RF
Discontinued
donepezil 5 mg Tablet
5 mg PO HS
lorazepam 0.5 mg Tablet
0.5 mg PO Q6HPRN PRN (Reason: anxiety)
enoxaparin 30 mg/0.3 mL syringe
30 mg SC QPM
Rx Instructions:
4 weeks for DVT prophylaxis
Discharge Orders:
Discharge Patient (As Directed); Ordered 03/29/25
Ordered By: Trey Long
Discharge Date and Time
Discharge Date/Time: 03/29/25 13:43
Print Language: BENGALI
== END 2025-03-29 13:43 | disposition home or self-care (01) | DRG 57 ==
LOC: 3 WEST ACU 07:28
PROVIDERS: Clinical Nurse Specialist Family Health; ADMITTING PHYSICIAN Hospitalist; ATTENDING PHYSICIAN Hospitalist; CONSULT PHYSICIAN Psychiatry & Neurology Psychiatry; EMERGENCY PHYSICIAN Emergency Medicine; FAMILY PHYSICIAN Family Medicine
DX: G30.9 Alzheimer's disease, unspecified (principal); F02.82 Dementia in other diseases classified elsewhere, unspecified severity, with psychotic disturbance; F02.83 Dementia in other diseases classified elsewhere, unspecified severity, with mood disturbance; F02.811 Dementia in other diseases classified elsewhere, unspecified severity, with agitation; F02.84 Dementia in other diseases classified elsewhere, unspecified severity, with anxiety; R64 Cachexia; J98.11 Atelectasis; E87.6 Hypokalemia; E55.9 Vitamin D deficiency, unspecified; Z66 Do not resuscitate; K22.70 Barrett's esophagus without dysplasia; Z11.52 Encounter for screening for COVID-19; K59.00 Constipation, unspecified; D50.9 Iron deficiency anemia, unspecified; F32.A Depression, unspecified; Z79.899 Other long term (current) drug therapy; Z87.440 Personal history of urinary (tract) infections
CPT/HCPCS: 71045; 74018; 80048; 80053; 82040; 82306; 82607; 82728; 83540; 83550; 83735; 84439; 84443; 85025; 85027; 87070; 92526; 93005; 96372; 97163; 99285; G0378; J2916

== ENCOUNTER 2025-04-02 16:19 | Emergency (ER) | payer MEDICARE, SELFPAY ==
[2025-04-02 16:31] VITALS: BP 127/86
--- NOTE | 2025-04-02 16:47 | EDRN ---
this TYPING CHECKER called [facility] at [phone] and spoke with MICHELLE Reed regarding ER staff not receiving paperwork from [place] with pts documented allergies, PMH, and a current list of medications. Per MICHELLE Reed, she will attempt to fax the above
documentation. Brianna was provided with the fax number for ER fax.
--- NOTE | 2025-04-02 19:22 | ED.MUSCINJ ---
HPI-Injury
General
Chief Complaint: Fall
Source: family (son)
Time Seen by Provider: 04/02/25 19:07
Nursing documentation reviewed up to this point in time: agreed with
History of Present Illness-Injury
Initial Injury comments:
79-year-old female brought to the ER by EMS for evaluation of right lower extremity pain after she was found on the floor at her correction. Patient has a history of dementia and is unable to provide any relevant history. Patient is recently
status post right femur fracture repair. Patient has been using tramadol for discomfort at a new increased dose due to poor control of her pain. [facility] staff felt that her leg was internally rotated prompting the recommendation to family
that she be evaluated in the ER. Patient is currently on hospice. Son present at bedside affirms that patient seems to be at her baseline. No reported recent concerns. No change in behavior. He does not appreciate the previously reported
internal rotation of the right lower extremity.
Past History
Past History
ED Past Medical History: Cancer (Skin CA), GERD and Other (UTI, Expressive Aphasia, Altzheimer's )
ED Past Surgical History: , Gynecological (Right Oophorectomy) and Orthopedic (Right foot surgery)
Social History
Tobacco: Non-smoker
Alcohol: None
Drug: None
Personal:
Living: alone
Review of Systems
Review of Systems
Allergies reviewed?: Yes
Unable to obtain full review of systems at this time due to: dementia
Phy Exam
Physical Exam
Physical Exam:
Patient is awake, alert, calling out inappropriately, screaming throughout evaluation, head is NCAT, PERRL, EOMI mucous membranes moist, conjunctiva pink, heart regular rate and rhythm without murmurs or ectopy, lungs are clear to auscultation
without wheezes rales or rhonchi, no abnormal chest wall excursion, no crepitus, no evidence of injury noted to the torso, pelvis is stable to rock, well-healing surgical incisions present over lateral right leg without erythema, no distal edema, no
JVD, abdomen is soft and nontender on palpation, extremities without edema, GCS is 14 due to confusion
Injury Course
Orders/Labs/Results
Orders:
Orders
04/02/25 16:54
CR Pelvis - 1 Or 2 Views Urgent
Reason For Exam: fall, recent fracture repair
Femur, Right 2 View [CR Femur - Right Min 2 Vw] Urgent
Comment:
Reason For Exam: fall, recent fracture repair
04/02/25 19:21
Tramadol HCl [Ultram] 50 mg PO NOW STA
MDM/Problems Addressed
Differential Diagnosis Includes:
Differential diagnosis to consider but not limited to displaced hardware, new fracture, occult intracranial hemorrhage, cervical spine injury, along with other etiologies considered
Chronic conditions affecting care:
adbanced age, dementia
*Pulse Oximetry
SaO2: 95
Oxygen Mode of Delivery: Room air
Patient hypoxic: no
*Critical Care Note
Total Time (30-74mins, 75-104mins- exclusive of procedures): Not Applicable
Update Note
Update Note:
Patient's son is present at bedside for my full evaluation. I discussed with him my interpretation of x-ray showing hardware to be intact. There may be a massimo-hardware fracture up at the greater trochanter. This would not be weightbearing.
Patient has not been weightbearing. She has been more confused and basically bedbound since discharge from this hospital. He states that she has been requiring additional pain medications and is requesting a dose of pain medicine. We discussed
additional possible evaluation in the emergency department. He reports the patient is on hospice and her goals are for comfort only. No additional imaging ordered at this time. He agrees with plan for [facility]
ED Attending Note
-
Portions of this chart may have been created with voice recognition software.� Occasional wrong word or��sound alike� substitutions may have occurred due to the inherent limitations of voice recognition software.
Discharge Plan
Departure
Patient Disposition: Home (Routine Discharge)
Date of Disposition: 04/02/25
Time of Disposition: 19:23
Patient with high blood pressure during this ER visit?: No
Discharge Problem:
Dementia, Unwitnessed fall
Instructions: Fall Prevention for Older Adults
Prescriptions:
No Action
sennosides [Olga-rekha] 8.6 mg Tablet
17.2 mg PO BID Qty: 120 0RF
risperidone 0.5 mg Tablet,Disintegrating
0.25 mg PO BID Qty: 60 0RF
risperidone 0.5 mg Tablet,Disintegrating
0.5 mg PO TID PRN (Reason: agitation) Qty: 90 0RF
sertraline 50 mg Tablet
100 mg PO DAILY Qty: 60 0RF
aspirin 325 mg tablet
325 mg PO DAILY Qty: 30 0RF
buspirone 5 mg Tablet
7.5 mg PO BID Qty: 60 0RF
acetaminophen 325 mg Tablet
650 mg PO Q6HPRN PRN (Reason: mild pain/fever) Qty: 120 0RF
magnesium hydroxide [Milk of Magnesia] 400 mg/5 mL Suspension
2,400 mg PO DAILYPRN PRN (Reason: constipation) Qty: 900 0RF
ferrous sulfate 325 mg (65 mg iron) tablet
325 mg PO DAILY Qty: 30 0RF
docusate sodium 100 mg Capsule
100 mg PO BID Qty: 60 0RF
omeprazole 20 mg Tablet,Delayed Release (Dr/Ec)
20 mg PO BID Qty: 60 0RF
magnesium oxide 400 mg magnesium Tablet
400 mg PO DAILY Qty: 30 0RF
Referrals:
Jaime Liao DO [Family Provider, Internal Medicine]
Activity Restrictions/Additional Instructions:
Continue your current medications. Continue activities as able as previously prescribed. Please follow-up with Dr. Liao for further medication recommendations. Return to the ER for any concerns
Interventions
Interventions:
*Risk Screen - Suicide Last Done: 04/02/25 16:39
*General Assessment Last Done: 04/02/25 16:39
*Neglect/Abuse Screening Last Done: 04/02/25 16:39
*ED- Fall Risk Assessment Last Done: 04/02/25 16:39
*ED COVID-19 Vaccine History Last Done: 04/02/25 16:39
*ED Influenza Vaccine History Last Done: 04/02/25 16:39
*Nursing Disposition Last Done: 04/02/25 21:26
ED-Musculoskeletal Assessment Last Done: 04/02/25 16:49
ED- Neurological Assessment Last Done: 04/02/25 16:49
ED-Skin Assessment Last Done: 04/02/25 16:49
Discharge Date and Time
Discharge Date/Time: 04/02/25 21:28
Print Language: SINHALA
[2025-04-02 20:04] VITALS: BP 95/52
[2025-04-02] MEDS: ULTRAM 50 MG PO (20:07)
== END 2025-04-02 21:28 ==
LOC: EMR 16:19
PROVIDERS: EMERGENCY PHYSICIAN Emergency Medicine; FAMILY PHYSICIAN Internal Medicine Geriatric Medicine
DX: M79.604 Pain in right leg (principal); W19.XXXA Unspecified fall, initial encounter; R47.01 Aphasia; G30.9 Alzheimer's disease, unspecified; F02.80 Dementia in other diseases classified elsewhere, unspecified severity, without behavioral disturbance, psychotic disturbance, mood disturbance, and anxiety; Z51.5 Encounter for palliative care
CPT/HCPCS: 99284; 72170; 73552